=== PATIENT | female | born 1970 | race Caucasian/White ===

== ENCOUNTER → 2017-11-21 12:59 | Outpatient (CLI) | payer OTHER, MEDICAID, SELFPAY ==
--- NOTE | 2017-11-21 13:00 | DI.US.S_ITS ---
PROCEDURE: US PERIPH VENOUS UP EXTREM LT COMPARISON: None. INDICATIONS: ARM PAIN FINDINGS: No thrombus identified in the deep venous system of the left upper extremity. The veins of left upper extremity normally compressible. There is normal augmentation of flow within the deep veins of left upper extremity. IMPRESSION: No evidence of deep vein thrombosis involving the left upper extremity. Dictated by: Leatha Fonseca MD, PhD on 11/21/2017 at 12:43 Approved by: Leatha Fonseca MD, PhD on 11/21/2017 at 12:45
== END ==
PROVIDERS: Family Provider Family Medicine; PCP Family Medicine; Visit Provider Family Medicine
DX: M79.602 Pain in left arm (principal)
CPT/HCPCS: 93971

== ENCOUNTER → 2017-11-22 20:08 | Outpatient (CLI) | payer OTHER, MEDICAID, SELFPAY ==
--- NOTE | 2017-11-22 20:13 | DI.RAD.S_ITS ---
PROCEDURE: XR WRIST LT MIN 3V INDICATIONS: wrist pain, no known injury TECHNIQUE: 4 views of the wrist were acquired. COMPARISON: None. FINDINGS: Bones: No fractures or dislocations. There is ulnar negative variance. No suspicious bony lesions. Scaphoid view: The scaphoid appears intact. Soft tissues: No suspicious soft tissue calcifications. IMPRESSION: 1. No acute bony abnormality. Dictated by: Melvin Sanches M.D. on 11/22/2017 at 20:40 Approved by: Melvin Sanches M.D. on 11/22/2017 at 20:41
--- NOTE | 2017-11-22 20:13 | DI.RAD.S_ITS ---
PROCEDURE: XR FOREARM RT 2V INDICATIONS: arm pain, no known injury TECHNIQUE: 2 views of the forearm were acquired. COMPARISON: None. FINDINGS: Bones: No fractures or dislocations. No suspicious bony lesions. Soft tissues: No suspicious soft tissue calcifications or masses. IMPRESSION: 1. No acute bony abnormality. Dictated by: Melvin Sanches M.D. on 11/22/2017 at 20:40 Approved by: Melvin Snaches M.D. on 11/22/2017 at 20:40
== END ==
PROVIDERS: Family Provider Family Medicine; PCP Family Medicine; Visit Provider Family Medicine
DX: M79.601 Pain in right arm (principal); M25.532 Pain in left wrist
CPT/HCPCS: 73090; 73110

== ENCOUNTER → 2017-11-27 17:38 | Outpatient (CLI) | payer OTHER, MEDICAID, SELFPAY ==
--- NOTE | 2017-11-27 17:40 | DI.RAD.S_ITS ---
PROCEDURE: XR CERVICAL SPINE 2V OR 3V INDICATIONS: 46-year-old female with cervicalgia. TECHNIQUE: 3 view(s) of the cervical spine were acquired. COMPARISON: [facility], , MRI C-SPINE W/O CONTRAST, 10/02/2004, 16:12. FINDINGS: Bones: No fractures or dislocations to the T1 level. There is loss of normal cervical spine lordosis as before. The lateral masses of C1 appear intact on the odontoid view. There is mild C4-C5 and C5-C6 disc degeneration. No suspicious bony lesions. Soft tissues: No prevertebral soft tissue swelling. There is minimal right carotid bifurcation atherosclerosis. IMPRESSION: Mild mid cervical spine disc degeneration, with persistent loss of normal cervical spine lordosis. Dictated by: Alfred Ross M.D. on 11/28/2017 at 8:19 Approved by: Alfred Ross M.D. on 11/28/2017 at 8:21
== END ==
PROVIDERS: Family Provider Family Medicine; PCP Family Medicine; Visit Provider Nurse Practitioner Family
DX: M50.322 Other cervical disc degeneration at C5-C6 level (principal); M25.532 Pain in left wrist
CPT/HCPCS: 72040

== ENCOUNTER 2018-01-07 20:18 | Emergency (ER) | payer OTHER, MEDICAID, SELFPAY ==
[2018-01-07 20:32] VITALS: PULSE 75; RESP 18; TEMP 36.3; O2SAT 98; BMI 41.1
--- NOTE | 2018-01-07 20:49 | DI.RAD.S_ITS ---
PROCEDURE: XR ACUTE ABDOMEN SERIES INDICATIONS: Abdominal pain TECHNIQUE: One view chest and two views of the abdomen were acquired. COMPARISON: [facility], , ABDOMEN COMPLETE, 03/28/2014, 10:14. FINDINGS: Surgical changes and devices: None. Chest: Lungs are clear. Heart size is normal. No pleural effusions. No pneumoperitoneum. Abdomen: Bowel gas pattern is mildly abnormal with mild prominence of several small and large bowel loops and right colonic obstipation. No suspicious calcifications. Visualized solid organ contours appear normal. Bones: No suspicious bony lesions. IMPRESSION: No free air found, no definite intestinal obstruction or perforation, and there is only a mild degree of gas prominence of small and large bowel loops in addition to colonic obstipation on the right. Dictated by: Mike Atkinson M.D. on 01/07/2018 at 21:32 Approved by: Mike Atkinson M.D. on 01/07/2018 at 21:33
[2018-01-07 20:56] LABS: Add Manual Diff / Slide Review NO; Basophils Percent Auto 0.6 % (0-2); Eosinophils Percent Auto 1.4 % (2-4); Hematocrit 44.4 % (36-46); Hemoglobin 14.8 g/dL (12.0-16.0); Lymphocytes Percent Auto 17.6 % (25-40); Mean Corpuscular HGB Conc 33.4 % (30-36); Mean Corpuscular Hemoglobin 30.6 PG (26-34); Mean Corpuscular Volume 91.5 fL (80-100); Monocytes Percent Auto 2.8 % (3-14); Neutrophils Absolute Auto 10100 /uL (3000-5900); Neutrophils Percent Auto 77.6 % (50-75); Platelet Count 453 X10^3/uL (150-400); Red Blood Cell Count 4.85 X10^6/uL (4.0-5.2); Red Cell Distribution Width 14.4 % (11.6-14.8); White Blood Cell Count 13.1 X10^3/uL (4.5-11.0)
[2018-01-07 21:07] LABS: Alanine Aminotransferase 26 IU/L (9-52); Albumin 4.4 g/dL (3.5-5.0); Albumin Globulin Ratio 1.4 (1.0-2.8); Alkaline Phosphatase 82 U/L (38-126); Aspartate Aminotransferase 31 IU/L (14-36); BUN Creatinine Ratio 22.2 (6-22); Bilirubin Total 0.4 mg/dL (0.2-1.3); Blood Urea Nitrogen 20 mg/dL (7-17); Carbon Dioxide 25 mmol/L (22-32); Chloride 103 mmol/L (98-107); Creatine Kinase 37 U/L (30-135); Estimated Glomerular Filt Rate > 60.0 mL/min (>60); Globulin 3.2 g/dL (1.7-4.1); Glucose 143 mg/dL (70-100); Lipase 246 U/L (23-300); Potassium 4.4 mmol/L (3.4-5.1); Sodium 141 mmol/L (137-145); Total Protein 7.6 g/dL (6.3-8.2)
[2018-01-07] MEDS: SODIUM CHLORIDE 0.9% 1,000 ML 150 ML IV (21:18)
--- NOTE | 2018-01-07 21:18 | DI.CT.S_ITS ---
PROCEDURE: CT CHEST ABD PEL W CON INDICATIONS: severe abdominal pain w/radiation into chest and L shoulder. TE the emergency room physician reports several months prior gastroplasty. CHNIQUE: After the administration of oral and intravenous contrast, 5 mm thick sections acquired from the lung apices to the symphysis. 5 mm coronal and sagittal reformats were performed, with additional 7 mm coronal MIP reformats through the lungs. For radiation dose reduction, the following was used: automated exposure control, adjustment of mA and/or kV according to patient size. COMPARISON: None. FINDINGS: Image quality: Excellent. CHEST: Lungs and pleura: There is a minimal degree of alveolar infiltration located within the right upper lobe and the left lower lobe, this may represent alveolar scarring from prior inflammation rather than slight acute pneumonia. No pleural effusions or pneumothorax. Central and peripheral airways appear patent and normal in caliber. Mediastinum: Heart size is normal. No pericardial effusion. No mediastinal or hilar adenopathy by size criteria. Thoracic aorta and central pulmonary arteries are normal in size. Esophagus is normal in caliber. No hiatal hernia. Chest wall: No axillary or supraclavicular adenopathy by size criteria. Thyroid gland appears normal where well visualized. ABDOMEN: Solid organs: Liver is normal in size and enhancement. Gallbladder appears contracted. Biliary system is non dilated. Pancreas enhances normally. Spleen is normal in size and enhancement and contains a simple superior anterior splenic cyst. No adrenal nodules. Kidneys demonstrate normal size and enhancement, without hydronephrosis. Peritoneum and bowel: Large and small loops demonstrate normal wall thickness and caliber. There is, however, free fluid and small amounts of free air. This is localized to the left upper quadrant and a portion of the fluid and free air approaches to the posterolateral margin of the dominant staple line tracking towards the left upper quadrant. An abscess in this area is not seen. A small amount of perihepatic and pre-hepatic free air is present. More inferiorly through the abdomen and pelvis no abscess or bowel perforation is suspected. Nodes and vessels: No retroperitoneal or mesenteric adenopathy by size criteria. Aorta and inferior vena cava are normal in size. Miscellaneous: At the midline of the umbilicus there is a periumbilical ventral hernia containing fat, consistent with omental herniation.. PELVIS: Genitourinary: Bladder wall thickness is normal. Miscellaneous: No inguinal hernias or adenopathy. Mild free fluid within the pelvis without abscess formation. Bones: No suspicious bony lesions. No vertebral body compression fractures. IMPRESSION: There is left upper quadrant free fluid and also free air, immediately adjacent to a gastroplasty enteric staple line. Abscess is not found. A small amount of free fluid is seen deep within the central portion of the cul-de-sac of the pelvis without adjacent bowel inflammation, and presumably has transited from the abdomen into the pelvis. No abscess in this area seen. Incidental note made of fat-containing omental hernia through the periumbilical space of the ventral midline, with omental fat herniation measuring up to 3.5 cm. Minimal alveolar infiltration within the lung parenchyma at the left lower lobe and the right upper lobe but the appearance may simply reflect scarring from prior inflammatory process in those areas. A definite pattern of acute pneumonia is not present. Findings immediately called and discussed in detail with the emergency room physician caring for the patient. Surgical consultation is anticipated. Dictated by: Mike Atkinson M.D. on 01/07/2018 at 22:08 Approved by: Mike Atkinson M.D. on 01/07/2018 at 22:14
[2018-01-07] MEDS: HYDROMORPHONE 0.5 MG INJ IV (21:19)
[2018-01-07] MEDS: ONDANSETRON 4 MG/2 ML INJ IV (21:19)
[2018-01-07] MEDS: ASPIRIN 81 MG TAB 324 MG PO (21:19)
[2018-01-07 21:20] LABS: HEMOLYSIS 19 (0-50); Troponin I < 0.012 ng/mL (0.01-0.034)
--- NOTE | 2018-01-07 21:25 | ED.CHESTPAIN ---
HPI - Chest Pain <Matteo Donis, DO - Last Filed: 01/11/18 01:03> General Chief Complaint: Chest Pain Stated Complaint: CHEST PAIN Time Seen by Provider: 01/07/18 20:20 Source: patient and family Mode of arrival: ambulatory Limitations: no limitations History of Present Illness HPI narrative: 47-year-old female with history of NE times to and gastric bypass surgery presents with sudden-onset abdominal and chest pain 2 and 0.5 hr prior to her arrival while at rest. She states her pain is significantly worse when attempting to take a deep breath. She describes it as sharp and stabbing and admits radiation from her abdomen to her left shoulder. She denies nausea or vomiting. She has had no change in bowel habits. She states this feels much different than prior NE. Her gastric bypass was October [address] Charlene MANZANARES complaint: chest pain Duration: constant Onset: during rest Pain location: substernal, left chest and epigastric Severity: severe Quality: sharp Pain radiation: LUE Relieving factors: nothing Exacerbating factors: inspiration and movement Treatments prior to arrival chest pain: none Related Data Home Medications Medication Instructions Recorded Confirmed Bariatric Vitamin C Iron 1 cap PO DAILY 01/09/18 01/09/18 Calcium 500 1,000 mg PO DAILY 01/09/18 01/09/18 Previous Rx's Medication Instructions Recorded bdottjzsks-hxjuvcrnbjuyr-lirl 1 tab PO Q4HP PRN #20 tab 10/07/16 amlodipine 10 mg PO QDAY #30 tab 03/12/17 clobetasol [Clobex] 1 cindy TOPICAL QWEEK #118 ml 04/29/17 pravastatin 20 mg PO HS #30 tab 08/15/17 albuterol sulfate [Ventolin HFA] 2 puff INH Q4HP PRN #1 ea 10/01/17 carvedilol [Coreg] 25 mg PO BID #60 tab 10/15/17 diazepam 2 mg tablet See Label Instructions PO HSP PRN 11/25/17 #30 tab fluconazole [Diflucan] 100 mg PO BID #15 tab 01/10/18 levofloxacin 500 mg PO DAILY #7 tab 01/10/18 metronidazole [Flagyl] 500 mg PO TID #22 tab 01/10/18 omeprazole 20 mg PO DAILY #14 cap 01/10/18 Allergies Allergy/AdvReac Type Severity Reaction Status Date / Time Penicillins [PENICILLINS] Allergy Unknown rash Verified 01/07/18 20:42 Review of Systems <DO Orville Kyle Last Filed: 01/11/18 01:03> Review of Systems All systems reviewed & are unremarkable except as noted in HPI and below Constitutional Denies chills, Denies fever(s), Denies lethargy and Denies weakness Eyes Denies change in vision, Denies eye discharge, Denies irritation and Denies loss of vision ENT Ears, Nose, Mouth, and Throat: Denies change in voice, Denies neck pain and Denies sore throat Cardiovascular Reports chest pain, Denies irregular heart rhythm, Denies lightheadedness, Denies palpitations, Denies dyspnea, Denies dyspnea on exertion and Denies orthopnea Respiratory Denies cough, Reports pain on inspiration, Denies dyspnea, Denies dyspnea on exertion and Denies wheezing Gastrointestinal Gastrointestinal: Reports abdominal pain, Denies change in bowel habits, Denies diarrhea, Denies nausea and Denies vomiting Genitourinary Denies hematuria, Denies flank pain, Denies urinary incontinence and Denies urinary urgency Musculoskeletal Denies neck pain Integumentary/Breasts Denies pruritus, Denies erythema, Denies rash and Denies wounds Neurologic Denies confusion, Denies loss of vision and Denies weakness Psychiatric Denies anxiety, Denies confusion, Denies depression, Denies homicidal ideation and Denies suicidal ideation Endocrine Denies palpitations Hematologic/Lymphatic Denies easy bruising Allergic/Immunologic Denies wheezing Exam <DO Orville Kyle Last Filed: 01/11/18 01:03> Narrative Exam Narrative: Pleasant 47-year-old female, obese, anxious, in distress clutching her upper abdomen Initial Vital Signs Initial Vital Signs: Vital Signs Temperature 97.4 F L 01/07/18 20:32 Pulse Rate 75 01/07/18 20:32 Respiratory Rate 18 01/07/18 20:32 Pulse Oximetry 98 01/07/18 20:32 Const General: cooperative and well developed Nutritional Appearance: obese Orientation: alert, awake, oriented x3 and not confused HENVA Head: normocephalic and atraumatic Ears: external ears normal and TM's normal bilaterally Nose: external nose normal and No nasal discharge Face and sinus: face symmetric Mouth: oral mucosae normal and moist mucous membranes Teeth and gingiva: dentition normal Throat: tonsils normal and uvula midline Eyes General: appearance normal, both eyes and all related structures Eyelids: eyelids normal Pupils: PERRL EOM: EOM intact bilaterally Neck Neck: normal visual inspection, trachea midline, No lymphadenopathy, No midline deformity and No JVD Lymphatic: No lymphedema Chest Chest: localized rib tenderness with anteroposterior compression Resp Effort & Inspection: normal respiratory effort, able to speak in complete sentences, no respiratory distress and no use of accessory muscles Auscultation: clear to auscultation bilaterally, no rales, no rhonchi and no wheezes Cardio Rate: regular rate Rhythm: regular rhythm Heart Sounds: no click, no gallops, no murmurs and no rubs Pulses: normal peripheral pulses GI Inspection: non-distended Palpation: soft, no hepatosplenomegaly, No guarding, No pulsatile mass and tender (In epigastrium) Auscultation: normal bowel sounds Back/Spine/Pelvis Back: No CVA tenderness Cervical Spine: cervical ROM normal and No pain with cervical ROM Thoracic/Lumbar Spine: thoracic and lumbar spine normal to inspection Skin General: no rashes or lesions noted, No jaundice and No petechiae Neuro General: alert, oriented x3, gait normal and no focal motor deficits Speech: speech normal Extrem General: full ROM, no clubbing, cyanosis or edema, no pedal edema and no calf tenderness Psych Appearance: well kempt Mental Status: mental status grossly normal Attitude: cooperative Thought Content: normal and suicidality Judgment: judgment good <Colby Stevens DO - Last Filed: 01/10/18 18:47> Initial Vital Signs Initial Vital Signs: Vital Signs Temperature 97.4 F L 01/07/18 20:32 Pulse Rate 75 01/07/18 20:32 Respiratory Rate 18 01/07/18 20:32 Pulse Oximetry 98 01/07/18 20:32 Course <Matteo Donis DO - Last Filed: 01/11/18 01:03> Orders Ordered: Discontinued Medications Aspirin (Aspirin Chew) 324 mg PO NOW ONE Stop: 01/07/18 20:40 Last Admin: 01/07/18 21:19 Dose: 324 mg Hydromorphone HCl (Dilaudid) 0.5 mg IV NOW ONE Stop: 01/07/18 20:49 Last Admin: 01/07/18 21:19 Dose: 0.5 mg Hydromorphone HCl (Dilaudid) 0.5 mg IV NOW ONE Stop: 01/07/18 23:50 Last Admin: 01/07/18 23:51 Dose: 0.5 mg Hydromorphone HCl (Dilaudid) 0.5 mg IV NOW ONE Stop: 01/08/18 06:35 Last Admin: 01/08/18 06:37 Dose: 0.5 mg Hydromorphone HCl (Dilaudid) 0.5 mg IV NOW ONE Stop: 01/08/18 09:40 Last Admin: 01/08/18 09:53 Dose: 0.5 mg Hydromorphone HCl (Dilaudid) 0.5 mg IV Q4H PRN PRN Reason: Pain, Moderate (4-6) Last Admin: 01/10/18 06:55 Dose: 0.5 mg Admin: 01/09/18 21:04 Dose: 0.5 mg Admin: 01/09/18 04:15 Dose: 0.5 mg Admin: 01/09/18 00:57 Dose: 0.5 mg Admin: 01/08/18 20:40 Dose: 0.5 mg Admin: 01/08/18 17:23 Dose: 0.5 mg Admin: 01/08/18 13:45 Dose: 0.5 mg Sodium Chloride (Normal Saline 0.9%) 1,000 mls @ 150 mls/hr IV CONT [facility] Last Infusion: 01/08/18 04:02 Dose: 150 mls/hr Admin: 01/07/18 21:18 Dose: 150 mls/hr Levofloxacin (Levaquin) 500 mg in 100 mls @ 100 mls/hr IV Q24H [facility] Last Infusion: 01/09/18 02:40 Dose: 100 mls/hr Admin: 01/09/18 01:40 Dose: 100 mls/hr Infusion: 01/08/18 01:40 Dose: 100 mls/hr Admin: 01/08/18 00:21 Dose: 100 mls/hr Metronidazole (Flagyl) 500 mg in 100 mls @ 100 mls/hr IV Q8H [facility] Last Admin: 01/09/18 19:55 Dose: Infusion: 01/09/18 11:58 Dose: 0 mls/hr Admin: 01/09/18 10:53 Dose: 100 mls/hr Infusion: 01/09/18 04:00 Dose: 100 mls/hr Admin: 01/09/18 03:00 Dose: 100 mls/hr Infusion: 01/08/18 18:41 Dose: 0 mls/hr Admin: 01/08/18 17:11 Dose: 100 mls/hr Infusion: 01/08/18 10:49 Dose: 0 mls/hr Admin: 01/08/18 09:53 Dose: 100 mls/hr Infusion: 01/08/18 02:39 Dose: 100 mls/hr Admin: 01/08/18 01:39 Dose: 100 mls/hr Fluconazole (Diflucan) 100 mg in 50 mls @ 50 mls/hr IV NOW ONE Stop: 01/08/18 01:44 Last Infusion: 01/08/18 04:01 Dose: 50 mls/hr Admin: 01/08/18 02:40 Dose: 50 mls/hr Pantoprazole Sodium 80 mg/ (Sodium Chloride) 100 mls @ 10 mls/hr IV CONT [facility] Last Infusion: 01/08/18 11:51 Dose: 0 mg/hr, 0 mls/hr Infusion: 01/08/18 11:06 Dose: 0 mg/hr, 0 mls/hr Admin: 01/08/18 07:41 Dose: 8 mg/hr, 10 mls/hr Sodium Chloride (Normal Saline 0.9%) 1,000 mls @ 125 mls/hr IV CONT [facility] Last Infusion: 01/08/18 18:43 Dose: 0 mls/hr Admin: 01/08/18 10:45 Dose: 125 mls/hr HYDROMORPHONE [employer] (Dilaudid 6 Mg/30 Ml) 6 mg in 30 mls @ 0 mls/hr IV Q8HR [facility] Dextrose/Sodium Chloride (Dextrose 5%-0.45% Ns) 1,000 mls @ 125 mls/hr IV CONT [facility] Last Infusion: 01/09/18 18:58 Dose: 0 mls/hr Admin: 01/09/18 10:53 Dose: 125 mls/hr Infusion: 01/09/18 10:35 Dose: 0 mls/hr Admin: 01/08/18 21:48 Dose: 125 mls/hr Fluconazole (Diflucan) 100 mg in 50 mls @ 100 mls/hr IV Q24H [facility] Last Infusion: 01/10/18 09:09 Dose: 0 mls/hr Admin: 01/10/18 07:52 Dose: 100 mls/hr Infusion: 01/09/18 10:34 Dose: 0 mls/hr Admin: 01/09/18 08:59 Dose: 100 mls/hr Levofloxacin (Levaquin) 500 mg in 100 mls @ 100 mls/hr IV 0000 [facility] Last Infusion: 01/10/18 00:30 Dose: 0 mls/hr Admin: 01/09/18 23:19 Dose: 100 mls/hr Metronidazole (Flagyl) 500 mg in 100 mls @ 100 mls/hr IV 0400,1200,2000 [facility] Last Infusion: 01/10/18 14:27 Dose: 0 mls/hr Admin: 01/10/18 12:13 Dose: 100 mls/hr Infusion: 01/10/18 05:22 Dose: 0 mls/hr Admin: 01/10/18 04:19 Dose: 100 mls/hr Infusion: 01/09/18 20:40 Dose: 0 mls/hr Admin: 01/09/18 19:48 Dose: 100 mls/hr Dextrose/Sodium Chloride (Dextrose 5%-0.45% Ns) 1,000 mls @ 125 mls/hr IV CONT [facility] Last Infusion: 01/10/18 06:49 Dose: 0 mls/hr Admin: 01/09/18 19:56 Dose: 125 mls/hr Dextrose/Sodium Chloride (Dextrose 5%-0.9% Ns) 1,000 mls @ 125 mls/hr IV CONT [facility] Last Infusion: 01/10/18 17:40 Dose: 0 mls/hr Admin: 01/10/18 07:53 Dose: 125 mls/hr Naloxone HCl (Narcan) 0.2 mg IV Q2MIN PRN; Protocol PRN Reason: Opiate Reversal Ondansetron HCl (Zofran) 4 mg IV Q4HR PRN PRN Reason: Nausea And Vomiting Last Admin: 01/07/18 21:19 Dose: 4 mg Reevaluation(s) Reevaluation #1: Patient resting comfortably. Vitals remained stable. No change in pain profile Time: 03:13 Reevaluation #2: Patient resting comfortably. Continues to ambulate through department. No significant pain. no vomiting. No fever. Fluids continue. Waiting on possible bed tomorrow Time: 02:01 Consultations Consultation #1: call to [facility]. Images pushed. Face sheet faxed. Time: 22:13 Consultation #2: Lengthy discussion with Dr. Chang regarding the patient's presentation, exam, labs, imaging. She recommends patient transferred to the [facility] for further evaluation in the possibility of surgical intervention. She recommends broad-spectrum antibiotics including Levaquin, Flagyl and Diflucan as well as Protonix, IV fluids at 125 mL/hr and pain and nausea control as needed. Bed control from the [facility] unfortunately has no available beds this evening but will have a bed availability a meeting at 8:00 a.m.. We are high top their list given the patient's possible surgical intervention and history at the [facility]. They request immediate contact for any change in the patient's clinical status Vital Signs - 8 hr 01/10/18 18:29 Temperature 97.6 F Pulse Rate 55 L Respiratory Rate 18 Blood Pressure [Left Arm] 111/63 Pulse Oximetry 100 <Colby Stevens DO - Last Filed: 01/10/18 18:47> Orders Ordered: Discontinued Medications Aspirin (Aspirin Chew) 324 mg PO NOW ONE Stop: 01/07/18 20:40 Last Admin: 01/07/18 21:19 Dose: 324 mg Hydromorphone HCl (Dilaudid) 0.5 mg IV NOW ONE Stop: 01/07/18 20:49 Last Admin: 01/07/18 21:19 Dose: 0.5 mg Hydromorphone HCl (Dilaudid) 0.5 mg IV NOW ONE Stop: 01/07/18 23:50 Last Admin: 01/07/18 23:51 Dose: 0.5 mg Hydromorphone HCl (Dilaudid) 0.5 mg IV NOW ONE Stop: 01/08/18 06:35 Last Admin: 01/08/18 06:37 Dose: 0.5 mg Hydromorphone HCl (Dilaudid) 0.5 mg IV NOW ONE Stop: 01/08/18 09:40 Last Admin: 01/08/18 09:53 Dose: 0.5 mg Hydromorphone HCl (Dilaudid) 0.5 mg IV Q4H PRN PRN Reason: Pain, Moderate (4-6) Last Admin: 01/10/18 06:55 Dose: 0.5 mg Admin: 01/09/18 21:04 Dose: 0.5 mg Admin: 01/09/18 04:15 Dose: 0.5 mg Admin: 01/09/18 00:57 Dose: 0.5 mg Admin: 01/08/18 20:40 Dose: 0.5 mg Admin: 01/08/18 17:23 Dose: 0.5 mg Admin: 01/08/18 13:45 Dose: 0.5 mg Sodium Chloride (Normal Saline 0.9%) 1,000 mls @ 150 mls/hr IV CONT [facility] Last Infusion: 01/08/18 04:02 Dose: 150 mls/hr Admin: 01/07/18 21:18 Dose: 150 mls/hr Levofloxacin (Levaquin) 500 mg in 100 mls @ 100 mls/hr IV Q24H [facility] Last Infusion: 01/09/18 02:40 Dose: 100 mls/hr Admin: 01/09/18 01:40 Dose: 100 mls/hr Infusion: 01/08/18 01:40 Dose: 100 mls/hr Admin: 01/08/18 00:21 Dose: 100 mls/hr Metronidazole (Flagyl) 500 mg in 100 mls @ 100 mls/hr IV Q8H [facility] Last Admin: 01/09/18 19:55 Dose: Infusion: 01/09/18 11:58 Dose: 0 mls/hr Admin: 01/09/18 10:53 Dose: 100 mls/hr Infusion: 01/09/18 04:00 Dose: 100 mls/hr Admin: 01/09/18 03:00 Dose: 100 mls/hr Infusion: 01/08/18 18:41 Dose: 0 mls/hr Admin: 01/08/18 17:11 Dose: 100 mls/hr Infusion: 01/08/18 10:49 Dose: 0 mls/hr Admin: 01/08/18 09:53 Dose: 100 mls/hr Infusion: 01/08/18 02:39 Dose: 100 mls/hr Admin: 01/08/18 01:39 Dose: 100 mls/hr Fluconazole (Diflucan) 100 mg in 50 mls @ 50 mls/hr IV NOW ONE Stop: 01/08/18 01:44 Last Infusion: 01/08/18 04:01 Dose: 50 mls/hr Admin: 01/08/18 02:40 Dose: 50 mls/hr Pantoprazole Sodium 80 mg/ (Sodium Chloride) 100 mls @ 10 mls/hr IV CONT [facility] Last Infusion: 01/08/18 11:51 Dose: 0 mg/hr, 0 mls/hr Infusion: 01/08/18 11:06 Dose: 0 mg/hr, 0 mls/hr Admin: 01/08/18 07:41 Dose: 8 mg/hr, 10 mls/hr Sodium Chloride (Normal Saline 0.9%) 1,000 mls @ 125 mls/hr IV CONT [facility] Last Infusion: 01/08/18 18:43 Dose: 0 mls/hr Admin: 01/08/18 10:45 Dose: 125 mls/hr HYDROMORPHONE [employer] (Dilaudid 6 Mg/30 Ml) 6 mg in 30 mls @ 0 mls/hr IV Q8HR [facility] Dextrose/Sodium Chloride (Dextrose 5%-0.45% Ns) 1,000 mls @ 125 mls/hr IV CONT [facility] Last Infusion: 01/09/18 18:58 Dose: 0 mls/hr Admin: 01/09/18 10:53 Dose: 125 mls/hr Infusion: 01/09/18 10:35 Dose: 0 mls/hr Admin: 01/08/18 21:48 Dose: 125 mls/hr Fluconazole (Diflucan) 100 mg in 50 mls @ 100 mls/hr IV Q24H [facility] Last Infusion: 01/10/18 09:09 Dose: 0 mls/hr Admin: 01/10/18 07:52 Dose: 100 mls/hr Infusion: 01/09/18 10:34 Dose: 0 mls/hr Admin: 01/09/18 08:59 Dose: 100 mls/hr Levofloxacin (Levaquin) 500 mg in 100 mls @ 100 mls/hr IV 0000 [facility] Last Infusion: 01/10/18 00:30 Dose: 0 mls/hr Admin: 01/09/18 23:19 Dose: 100 mls/hr Metronidazole (Flagyl) 500 mg in 100 mls @ 100 mls/hr IV 0400,1200,2000 [facility] Last Infusion: 01/10/18 14:27 Dose: 0 mls/hr Admin: 01/10/18 12:13 Dose: 100 mls/hr Infusion: 01/10/18 05:22 Dose: 0 mls/hr Admin: 01/10/18 04:19 Dose: 100 mls/hr Infusion: 01/09/18 20:40 Dose: 0 mls/hr Admin: 01/09/18 19:48 Dose: 100 mls/hr Dextrose/Sodium Chloride (Dextrose 5%-0.45% Ns) 1,000 mls @ 125 mls/hr IV CONT [facility] Last Infusion: 01/10/18 06:49 Dose: 0 mls/hr Admin: 01/09/18 19:56 Dose: 125 mls/hr Dextrose/Sodium Chloride (Dextrose 5%-0.9% Ns) 1,000 mls @ 125 mls/hr IV CONT [facility] Last Infusion: 01/10/18 17:40 Dose: 0 mls/hr Admin: 01/10/18 07:53 Dose: 125 mls/hr Naloxone HCl (Narcan) 0.2 mg IV Q2MIN PRN; Protocol PRN Reason: Opiate Reversal Ondansetron HCl (Zofran) 4 mg IV Q4HR PRN PRN Reason: Nausea And Vomiting Last Admin: 01/07/18 21:19 Dose: 4 mg Vital Signs - 8 hr 01/10/18 18:29 Temperature 97.6 F Pulse Rate 55 L Respiratory Rate 18 Blood Pressure [Left Arm] 111/63 Pulse Oximetry 100 MDM - Chest Pain <Matteo Donis DO - Last Filed: 01/11/18 01:03> Medical Records Data Attestation: I reviewed the patient's medical records. Lab Data Attestation: I reviewed the patient's lab results. Result diagrams: 01/10/18 07:40 01/10/18 07:40 Lab Results 01/07/18 01/07/18 01/08/18 Range/Units 20:48 20:48 18:34 WBC 13.1 H 13.6 H (4.5-11.0) X10^3/uL RBC 4.85 4.21 (4.0-5.2) X10^6/uL Hgb 14.8 12.9 (12.0-16.0) g/dL Hct 44.4 38.6 (36-46) % MCV 91.5 91.6 (80-100) fL MCH 30.6 30.6 (26-34) PG MCHC 33.4 33.4 (30-36) % RDW 14.4 14.3 (11.6-14.8) % Plt Count 453 H 354 (150-400) X10^3/uL Neut % (Auto) 77.6 H 78.0 H (50-75) % Lymph % (Auto) 17.6 L 13.7 L (25-40) % Roosevelt % (Auto) 2.8 L 7.6 (3-14) % Eos % (Auto) 1.4 L 0.5 L (2-4) % Baso % (Auto) 0.6 0.2 (0-2) % Neut # (Auto) 37541 H 30696 H (8527-5143) /uL Sodium 141 (137-145) mmol/L Potassium 4.4 (3.4-5.1) mmol/L Chloride 103 (98-107) mmol/L Carbon Dioxide 25 (22-32) mmol/L BUN 20 H (7-17) mg/dL Creatinine 0.90 (0.52-1.04) mg/dL Estimated GFR > 60.0 (>60) mL/min BUN/Creatinine Ratio 22.2 H (6-22) Glucose 143 H (70-100) mg/dL Lactate (0.7-2.1) mmol/L Calcium 10.0 (8.4-10.2) mg/dL Total Bilirubin 0.4 (0.2-1.3) mg/dL AST 31 (14-36) IU/L ALT 26 (9-52) IU/L Alkaline Phosphatase 82 (38-126) U/L Total Creatine Kinase 37 (30-135) U/L Troponin I < 0.012 (0.01-0.034) ng/mL Total Protein 7.6 (6.3-8.2) g/dL Albumin 4.4 (3.5-5.0) g/dL Globulin 3.2 (1.7-4.1) g/dL Albumin/Globulin Ratio 1.4 (1.0-2.8) Lipase 246 (23-300) U/L 01/08/18 01/08/18 01/10/18 Range/Units 18:34 18:34 07:40 WBC 7.4 (4.5-11.0) X10^3/uL RBC 3.92 L (4.0-5.2) X10^6/uL Hgb 12.1 (12.0-16.0) g/dL Hct 35.9 L (36-46) % MCV 91.5 (80-100) fL MCH 30.9 (26-34) PG MCHC 33.8 (30-36) % RDW 14.6 (11.6-14.8) % Plt Count 340 (150-400) X10^3/uL Neut % (Auto) 58.4 (50-75) % Lymph % (Auto) 29.1 (25-40) % Roosevelt % (Auto) 7.8 (3-14) % Eos % (Auto) 4.4 H (2-4) % Baso % (Auto) 0.3 (0-2) % Neut # (Auto) 4300 (9192-9196) /uL Sodium 139 (137-145) mmol/L Potassium 3.9 (3.4-5.1) mmol/L Chloride 107 (98-107) mmol/L Carbon Dioxide 24 (22-32) mmol/L BUN 11 (7-17) mg/dL Creatinine 0.70 (0.52-1.04) mg/dL Estimated GFR > 60.0 (>60) mL/min BUN/Creatinine Ratio 15.7 (6-22) Glucose 123 H (70-100) mg/dL Lactate 0.6 L (0.7-2.1) mmol/L Calcium 8.7 (8.4-10.2) mg/dL Total Bilirubin (0.2-1.3) mg/dL AST (14-36) IU/L ALT (9-52) IU/L Alkaline Phosphatase (38-126) U/L Total Creatine Kinase (30-135) U/L Troponin I (0.01-0.034) ng/mL Total Protein (6.3-8.2) g/dL Albumin (3.5-5.0) g/dL Globulin (1.7-4.1) g/dL Albumin/Globulin Ratio (1.0-2.8) Lipase (23-300) U/L /14/18 Range/Units 07:40 WBC (4.5-11.0) X10^3/uL RBC (4.0-5.2) X10^6/uL Hgb (12.0-16.0) g/dL Hct (36-46) % MCV (80-100) fL MCH (26-34) PG MCHC (30-36) % RDW (11.6-14.8) % Plt Count (150-400) X10^3/uL Neut % (Auto) (50-75) % Lymph % (Auto) (25-40) % Roosevelt % (Auto) (3-14) % Eos % (Auto) (2-4) % Baso % (Auto) (0-2) % Neut # (Auto) (4530-5975) /uL Sodium 142 (137-145) mmol/L Potassium 3.6 (3.4-5.1) mmol/L Chloride 109 H (98-107) mmol/L Carbon Dioxide 25 (22-32) mmol/L BUN 7 (7-17) mg/dL Creatinine 0.70 (0.52-1.04) mg/dL Estimated GFR > 60.0 (>60) mL/min BUN/Creatinine Ratio 10.0 (6-22) Glucose 121 H (70-100) mg/dL Lactate (0.7-2.1) mmol/L Calcium 8.8 (8.4-10.2) mg/dL Total Bilirubin (0.2-1.3) mg/dL AST (14-36) IU/L ALT (9-52) IU/L Alkaline Phosphatase (38-126) U/L Total Creatine Kinase (30-135) U/L Troponin I (0.01-0.034) ng/mL Total Protein (6.3-8.2) g/dL Albumin (3.5-5.0) g/dL Globulin (1.7-4.1) g/dL Albumin/Globulin Ratio (1.0-2.8) Lipase (23-300) U/L Imaging Data CT scan - abdomen: Radiologist's impression: PROCEDURE: CT CHEST ABD PEL W CON INDICATIONS: severe abdominal pain w/radiation into chest and L shoulder. TE the emergency room physician reports several months prior gastroplasty. CHNIQUE: After the administration of oral and intravenous contrast, 5 mm thick sections acquired from the lung apices to the symphysis. 5 mm coronal and sagittal reformats were performed, with additional 7 mm coronal MIP reformats through the lungs. For radiation dose reduction, the following was used: automated exposure control, adjustment of mA and/or kV according to patient size. COMPARISON: None. FINDINGS: Image quality: Excellent. CHEST: Lungs and pleura: There is a minimal degree of alveolar infiltration located within the right upper lobe and the left lower lobe, this may represent alveolar scarring from prior inflammation rather than slight acute pneumonia. No pleural effusions or pneumothorax. Central and peripheral airways appear patent and normal in caliber. Mediastinum: Heart size is normal. No pericardial effusion. No mediastinal or hilar adenopathy by size criteria. Thoracic aorta and central pulmonary arteries are normal in size. Esophagus is normal in caliber. No hiatal hernia. Chest wall: No axillary or supraclavicular adenopathy by size criteria. Thyroid gland appears normal where well visualized. ABDOMEN: Solid organs: Liver is normal in size and enhancement. Gallbladder appears contracted. Biliary system is non dilated. Pancreas enhances normally. Spleen is normal in size and enhancement and contains a simple superior anterior splenic cyst. No adrenal nodules. Kidneys demonstrate normal size and enhancement, without hydronephrosis. Peritoneum and bowel: Large and small loops demonstrate normal wall thickness and caliber. There is, however, free fluid and small amounts of free air. This is localized to the left upper quadrant and a portion of the fluid and free air approaches to the posterolateral margin of the dominant staple line tracking towards the left upper quadrant. An abscess in this area is not seen. A small amount of perihepatic and pre-hepatic free air is present. More inferiorly through the abdomen and pelvis no abscess or bowel perforation is suspected. Nodes and vessels: No retroperitoneal or mesenteric adenopathy by size criteria. Aorta and inferior vena cava are normal in size. Miscellaneous: At the midline of the umbilicus there is a periumbilical ventral hernia containing fat, consistent with omental herniation.. PELVIS: Genitourinary: Bladder wall thickness is normal. Miscellaneous: No inguinal hernias or adenopathy. Mild free fluid within the pelvis without abscess formation. Bones: No suspicious bony lesions. No vertebral body compression fractures. IMPRESSION: There is left upper quadrant free fluid and also free air, immediately adjacent to a gastroplasty enteric staple line. Abscess is not found. A small amount of free fluid is seen deep within the central portion of the cul-de-sac of the pelvis without adjacent bowel inflammation, and presumably has transited from the abdomen into the pelvis. No abscess in this area seen. Incidental note made of fat-containing omental hernia through the periumbilical space of the ventral midline, with omental fat herniation measuring up to 3.5 cm. Minimal alveolar infiltration within the lung parenchyma at the left lower lobe and the right upper lobe but the appearance may simply reflect scarring from prior inflammatory process in those areas. A definite pattern of acute pneumonia is not present. Findings immediately called and discussed in detail with the emergency room physician caring for the patient. Surgical consultation is anticipated. Dictated by: Mike Atkinson M.D. on 01/07/2018 at 22:08 Approved by: Mike Atkinson M.D. on 01/07/2018 at 22:14 <Colby Stevens DO - Last Filed: 01/10/18 18:47> Lab Data Lab Results 01/07/18 01/07/18 01/08/18 Range/Units 20:48 20:48 18:34 WBC 13.1 H 13.6 H (4.5-11.0) X10^3/uL RBC 4.85 4.21 (4.0-5.2) X10^6/uL Hgb 14.8 12.9 (12.0-16.0) g/dL Hct 44.4 38.6 (36-46) % MCV 91.5 91.6 (80-100) fL MCH 30.6 30.6 (26-34) PG MCHC 33.4 33.4 (30-36) % RDW 14.4 14.3 (11.6-14.8) % Plt Count 453 H 354 (150-400) X10^3/uL Neut % (Auto) 77.6 H 78.0 H (50-75) % Lymph % (Auto) 17.6 L 13.7 L (25-40) % [place] % (Auto) 2.8 L 7.6 (3-14) % Eos % (Auto) 1.4 L 0.5 L (2-4) % Baso % (Auto) 0.6 0.2 (0-2) % Neut # (Auto) 04430 H 80048 H (3247-5013) /uL Sodium 141 (137-145) mmol/L Potassium 4.4 (3.4-5.1) mmol/L Chloride 103 (98-107) mmol/L Carbon Dioxide 25 (22-32) mmol/L BUN 20 H (7-17) mg/dL Creatinine 0.90 (0.52-1.04) mg/dL Estimated GFR > 60.0 (>60) mL/min BUN/Creatinine Ratio 22.2 H (6-22) Glucose 143 H (70-100) mg/dL Lactate (0.7-2.1) mmol/L Calcium 10.0 (8.4-10.2) mg/dL Total Bilirubin 0.4 (0.2-1.3) mg/dL AST 31 (14-36) IU/L ALT 26 (9-52) IU/L Alkaline Phosphatase 82 (38-126) U/L Total Creatine Kinase 37 (30-135) U/L Troponin I < 0.012 (0.01-0.034) ng/mL Total Protein 7.6 (6.3-8.2) g/dL Albumin 4.4 (3.5-5.0) g/dL Globulin 3.2 (1.7-4.1) g/dL Albumin/Globulin Ratio 1.4 (1.0-2.8) Lipase 246 (23-300) U/L 01/08/18 01/08/18 01/10/18 Range/Units 18:34 18:34 07:40 WBC 7.4 (4.5-11.0) X10^3/uL RBC 3.92 L (4.0-5.2) X10^6/uL Hgb 12.1 (12.0-16.0) g/dL Hct 35.9 L (36-46) % MCV 91.5 (80-100) fL MCH 30.9 (26-34) PG MCHC 33.8 (30-36) % RDW 14.6 (11.6-14.8) % Plt Count 340 (150-400) X10^3/uL Neut % (Auto) 58.4 (50-75) % Lymph % (Auto) 29.1 (25-40) % Roosevelt % (Auto) 7.8 (3-14) % Eos % (Auto) 4.4 H (2-4) % Baso % (Auto) 0.3 (0-2) % Neut # (Auto) 4300 (0749-8882) /uL Sodium 139 (137-145) mmol/L Potassium 3.9 (3.4-5.1) mmol/L Chloride 107 (98-107) mmol/L Carbon Dioxide 24 (22-32) mmol/L BUN 11 (7-17) mg/dL Creatinine 0.70 (0.52-1.04) mg/dL Estimated GFR > 60.0 (>60) mL/min BUN/Creatinine Ratio 15.7 (6-22) Glucose 123 H (70-100) mg/dL Lactate 0.6 L (0.7-2.1) mmol/L Calcium 8.7 (8.4-10.2) mg/dL Total Bilirubin (0.2-1.3) mg/dL AST (14-36) IU/L ALT (9-52) IU/L Alkaline Phosphatase (38-126) U/L Total Creatine Kinase (30-135) U/L Troponin I (0.01-0.034) ng/mL Total Protein (6.3-8.2) g/dL Albumin (3.5-5.0) g/dL Globulin (1.7-4.1) g/dL Albumin/Globulin Ratio (1.0-2.8) Lipase (23-300) U/L 01/10/18 Range/Units 07:40 WBC (4.5-11.0) X10^3/uL RBC (4.0-5.2) X10^6/uL Hgb (12.0-16.0) g/dL Hct (36-46) % MCV (80-100) fL MCH (26-34) PG MCHC (30-36) % RDW (11.6-14.8) % Plt Count (150-400) X10^3/uL Neut % (Auto) (50-75) % Lymph % (Auto) (25-40) % Roosevelt % (Auto) (3-14) % Eos % (Auto) (2-4) % Baso % (Auto) (0-2) % Neut # (Auto) (3885-3851) /uL Sodium 142 (137-145) mmol/L Potassium 3.6 (3.4-5.1) mmol/L Chloride 109 H (98-107) mmol/L Carbon Dioxide 25 (22-32) mmol/L BUN 7 (7-17) mg/dL Creatinine 0.70 (0.52-1.04) mg/dL Estimated GFR > 60.0 (>60) mL/min BUN/Creatinine Ratio 10.0 (6-22) Glucose 121 H (70-100) mg/dL Lactate (0.7-2.1) mmol/L Calcium 8.8 (8.4-10.2) mg/dL Total Bilirubin (0.2-1.3) mg/dL AST (14-36) IU/L ALT (9-52) IU/L Alkaline Phosphatase (38-126) U/L Total Creatine Kinase (30-135) U/L Troponin I (0.01-0.034) ng/mL Total Protein (6.3-8.2) g/dL Albumin (3.5-5.0) g/dL Globulin (1.7-4.1) g/dL Albumin/Globulin Ratio (1.0-2.8) Lipase (23-300) U/L MDM Narrative Medical decision making narrative: Dr stevens: 1100 Received turned over from night provider. Reviewed patient's history and physical exam upon my arrival here at 0700 hr this morning. we were waiting a staffing meeting at the [facility] that was scheduled to happen between 8-9 this morning. They did call us back after 10 o'clock this morning and stated that they did not currently have any beds and had to wait for discharges. I again talked to Dr. Chang who Dr. Shah spoke with last evening in who is the patient's operative surgeon asking if in her opinion given the information that we have provided her and her review of the CT scan if I should be looking for another location to send this patient secondary to the potential perforation. Dr. Chang seem to think based on the information that she was provided an her review of the CT and the current vital signs that the patient would be best off down at the [facility] and not at another facility. She states that given our description of the patient and her review of the CT that she would not take the patient emergently to the operating room. She did state that if the patient's condition continued to worsen then we would potentially have to make different arrangements. She also stated that the patient did not need to be on a Protonix drip. She recommended continuing the antibiotics on a daily basis. I did update the patient and family who was at bedside regarding the situation and the benefit that she would receive by staying here in the emergency department awaiting for [facility]. She did expressed understanding and agreement with this. Will continue to monitor. 01/09/18 Dr Stevens: Attempts yesterday to admit the patient to the hospital under Medicine and surgery services were unsuccessful. [facility] continued to have no beds overnight. Patient has remained stable overnight. Received Levaquin and Flagyl overnight. Diflucan reordered for today. Patient has been ambulatory. Patient states that her upper abdominal pain is not much better than what it was yesterday. Labs ordered last evening were unchanged from her presentation to the emergency department. Blood pressure unremarkable. Patient has been NPO. Has been receiving IV fluids. Accu-Chek this morning unremarkable. Talk with Dr. Chang again this morning from [facility]. There is another bed meeting today between 8 and 9 they will contact us if a bed remains available. Will continue to watch the patient here in the emergency department. I feel that transferring her to another facility would not be the best thing for her seeing as how her surgeon is at [facility]. The patient's condition deteriorates will re-evaluate this decision. RED stockings ordered for the patient for DVT prophylaxis. Again the patient has also been ambulatory. I discussed the patient's case with her this morning. Informed her of the plans. She expressed understanding. Her continues to be at bedside. Will continue to monitor. 01/10/18 @ [address] had [address] discussion with Dr[address] Chang this morning. Patient has been stable overnight. Has remained afebrile. Has not been hypotensive. Repeat blood draws today show an improvement of her white blood cell count. Patient does report a significant improvement in her pain. Patient has been NPO since arrival. Has been receiving her antibiotics. After discussion with the transfer center [facility] it again appears that there is a low probability of bed availability today. Had a lengthy discussion with Dr. Chang regarding options that we had here in the emergency department. Item is understanding with Dr. Chang yesterday. It is my impression that Dr. Chang wanted to do an endoscopy however she clarified today stating that she would not do an endoscopy just a barium swallow to look for leakage. After this discussion I had a discussion with our radiologist here regarding our options. Given the day of the week the decision was made to give the patient oral and IV contrast and repeat the CT scan of the abdomen. Plan will be that if there is no leakage of the contrast into the abdominal cavity we will advance the patient's diet to clear liquids. She is able to tolerate this that we could potentially send her home with oral antibiotics the follow-up the beginning of next week. I did discuss this with the patient and her was at bedside who expressed understanding and agreement. Will consult Dr. Chang prior to any discharge. 01/10/18 1830: After discussions with Dr. Chang this morning the patient's diet was advanced throughout the day. She continued to have no abdominal pain. The CT scan that was done this morning with oral contrast does not show any intra-abdominal contrast material. The patient was able to tolerate a small amount of a protein drink. Had a discussion with Dr. Chang this afternoon who states that if she could tolerate a protein drink without worsening of her pain that she could be discharged with a total of 10 days of antibiotics. Patient has been on 3 days of antibiotics so far. The plan was for Dr. Chang is a office to contact the patient on Friday morning for a follow-up. Patient was given return precautions. She expressed understanding and agreement with plan Discharge Plan Departure Patient Disposition: Home, Self-Care Clinical Impression: Perforated bowel, Abdominal pain Discharge Date/Time: 01/10/18 18:58 Interventions: ED Discharge Assessment Last Done: 01/10/18 18:56 Instructions: DI for Abdominal Pain-Adult Activity Restrictions/Additional Instructions: You are to remain on a clear liquid diet and to your advanced by your surgeon. With regard to the antibiotics you can take the 1st dose of Levaquin/levofloxacin on Friday01/11/2018. Please take the 1st dose of the metronidazole/Flagyl this evening. Also take the 1st dose of the fluconazole/Diflucan this evening. Return to the emergency department for any new symptoms, worsening symptoms, fevers, worsening abdominal pain, or any other new or concerning symptoms. Thank you for your understanding in being here in the emergency department for so long. Dr. Chang also recommended that you take the antibiotics at different times and not all 3 pills at the same time. You can continue to take her other medications as directed but also do those at different times as well. Prescriptions: New fluconazole [Diflucan] 100 mg tablet 100 mg PO BID Qty: 15 RF: 0 metronidazole [Flagyl] 500 mg tablet 500 mg PO TID Qty: 22 RF: 0 omeprazole 20 mg capsule,delayed release(DR/EC) 20 mg PO DAILY Qty: 14 RF: 0 levofloxacin 500 mg tablet 500 mg PO DAILY Qty: 7 RF: 0 No Action [id number] 1 EACH tablet 1 tab PO Q4HP PRNQty: 20 RF: 0 amlodipine 10 MG tablet 10 mg PO QDAY Qty: 30 RF: 11 clobetasol [Clobex] 0.05 % shampoo 1 cindy Topical QWEEK Qty: 118 RF: 3 pravastatin 20 MG tablet 20 mg PO HS Qty: 30 RF: 11 albuterol sulfate [Ventolin HFA] 90 MCG/PUFF HFA aerosol inhaler 2 puff INH Q4HP PRNQty: 1 RF: 0 carvedilol [Coreg] 25 MG tablet 25 mg PO BID Qty: 60 RF: 5 diazepam 2 mg tablet See Label Instructions PO HSP PRN (Reason: muscle spasm) Qty: 30 RF: 0 Bariatric Vitamin C Iron 1 cap PO DAILY RF: 0 Calcium 500 1,000 mg PO DAILY RF: 0
--- NOTE | 2018-01-07 21:45 | ED_ITS ---
HPI - Chest Pain <Matteo Donis, DO - Last Filed: 01/11/18 01:03> General Chief Complaint: Chest Pain Stated Complaint: CHEST PAIN Time Seen by Provider: 01/07/18 20:20 Source: patient and family Mode of arrival: ambulatory Limitations: no limitations History of Present Illness HPI narrative: 47-year-old female with history of AL times to and gastric bypass surgery presents with sudden-onset abdominal and chest pain 2 and 0.5 hr prior to her arrival while at rest. She states her pain is significantly worse when attempting to take a deep breath. She describes it as sharp and stabbing and admits radiation from her abdomen to her left shoulder. She denies nausea or vomiting. She has had no change in bowel habits. She states this feels much different than prior AL. Her gastric bypass was October [address] Charlene MANZANARES complaint: chest pain Duration: constant Onset: during rest Pain location: substernal, left chest and epigastric Severity: severe Quality: sharp Pain radiation: LUE Relieving factors: nothing Exacerbating factors: inspiration and movement Treatments prior to arrival chest pain: none Related Data Home Medications Medication Instructions Recorded Confirmed Bariatric Vitamin C Iron 1 cap PO DAILY 01/09/18 01/09/18 Calcium 500 1,000 mg PO DAILY 01/09/18 01/09/18 Previous Rx's Medication Instructions Recorded [id number] 1 tab PO Q4HP PRN #20 tab 10/07/16 amlodipine 10 mg PO QDAY #30 tab 03/12/17 clobetasol [Clobex] 1 cindy TOPICAL QWEEK #118 ml 04/29/17 pravastatin 20 mg PO HS #30 tab 08/15/17 albuterol sulfate [Ventolin HFA] 2 puff INH Q4HP PRN #1 ea 10/01/17 carvedilol [Coreg] 25 mg PO BID #60 tab 10/15/17 diazepam 2 mg tablet See Label Instructions PO HSP PRN 11/25/17 #30 tab fluconazole [Diflucan] 100 mg PO BID #15 tab 01/10/18 levofloxacin 500 mg PO DAILY #7 tab 01/10/18 metronidazole [Flagyl] 500 mg PO TID #22 tab 01/10/18 omeprazole 20 mg PO DAILY #14 cap 01/10/18 Allergies Allergy/AdvReac Type Severity Reaction Status Date / Time Penicillins [PENICILLINS] Allergy Unknown rash Verified 01/07/18 20:42 Review of Systems <DO Orville Kyle Last Filed: 01/11/18 01:03> Review of Systems All systems reviewed & are unremarkable except as noted in HPI and below Constitutional Denies chills, Denies fever(s), Denies lethargy and Denies weakness Eyes Denies change in vision, Denies eye discharge, Denies irritation and Denies loss of vision ENT Ears, Nose, Mouth, and Throat: Denies change in voice, Denies neck pain and Denies sore throat Cardiovascular Reports chest pain, Denies irregular heart rhythm, Denies lightheadedness, Denies palpitations, Denies dyspnea, Denies dyspnea on exertion and Denies orthopnea Respiratory Denies cough, Reports pain on inspiration, Denies dyspnea, Denies dyspnea on exertion and Denies wheezing Gastrointestinal Gastrointestinal: Reports abdominal pain, Denies change in bowel habits, Denies diarrhea, Denies nausea and Denies vomiting Genitourinary Denies hematuria, Denies flank pain, Denies urinary incontinence and Denies urinary urgency Musculoskeletal Denies neck pain Integumentary/Breasts Denies pruritus, Denies erythema, Denies rash and Denies wounds Neurologic Denies confusion, Denies loss of vision and Denies weakness Psychiatric Denies anxiety, Denies confusion, Denies depression, Denies homicidal ideation and Denies suicidal ideation Endocrine Denies palpitations Hematologic/Lymphatic Denies easy bruising Allergic/Immunologic Denies wheezing Exam <DO Orville Kyle Last Filed: 01/11/18 01:03> Narrative Exam Narrative: Pleasant 47-year-old female, obese, anxious, in distress clutching her upper abdomen Initial Vital Signs Initial Vital Signs: Vital Signs Temperature 97.4 F L 01/07/18 20:32 Pulse Rate 75 01/07/18 20:32 Respiratory Rate 18 01/07/18 20:32 Pulse Oximetry 98 01/07/18 20:32 Const General: cooperative and well developed Nutritional Appearance: obese Orientation: alert, awake, oriented x3 and not confused HENAK Head: normocephalic and atraumatic Ears: external ears normal and TM's normal bilaterally Nose: external nose normal and No nasal discharge Face and sinus: face symmetric Mouth: oral mucosae normal and moist mucous membranes Teeth and gingiva: dentition normal Throat: tonsils normal and uvula midline Eyes General: appearance normal, both eyes and all related structures Eyelids: eyelids normal Pupils: PERRL EOM: EOM intact bilaterally Neck Neck: normal visual inspection, trachea midline, No lymphadenopathy, No midline deformity and No JVD Lymphatic: No lymphedema Chest Chest: localized rib tenderness with anteroposterior compression Resp Effort & Inspection: normal respiratory effort, able to speak in complete sentences, no respiratory distress and no use of accessory muscles Auscultation: clear to auscultation bilaterally, no rales, no rhonchi and no wheezes Cardio Rate: regular rate Rhythm: regular rhythm Heart Sounds: no click, no gallops, no murmurs and no rubs Pulses: normal peripheral pulses GI Inspection: non-distended Palpation: soft, no hepatosplenomegaly, No guarding, No pulsatile mass and tender (In epigastrium) Auscultation: normal bowel sounds Back/Spine/Pelvis Back: No CVA tenderness Cervical Spine: cervical ROM normal and No pain with cervical ROM Thoracic/Lumbar Spine: thoracic and lumbar spine normal to inspection Skin General: no rashes or lesions noted, No jaundice and No petechiae Neuro General: alert, oriented x3, gait normal and no focal motor deficits Speech: speech normal Extrem General: full ROM, no clubbing, cyanosis or edema, no pedal edema and no calf tenderness Psych Appearance: well kempt Mental Status: mental status grossly normal Attitude: cooperative Thought Content: normal and suicidality Judgment: judgment good <Colby Stevens DO - Last Filed: 01/10/18 18:47> Initial Vital Signs Initial Vital Signs: Vital Signs Temperature 97.4 F L 01/07/18 20:32 Pulse Rate 75 01/07/18 20:32 Respiratory Rate 18 01/07/18 20:32 Pulse Oximetry 98 01/07/18 20:32 Course <Matteo Donis DO - Last Filed: 01/11/18 01:03> Orders Ordered: Discontinued Medications Aspirin (Aspirin Chew) 324 mg PO NOW ONE Stop: 01/07/18 20:40 Last Admin: 01/07/18 21:19 Dose: 324 mg Hydromorphone HCl (Dilaudid) 0.5 mg IV NOW ONE Stop: 01/07/18 20:49 Last Admin: 01/07/18 21:19 Dose: 0.5 mg Hydromorphone HCl (Dilaudid) 0.5 mg IV NOW ONE Stop: 01/07/18 23:50 Last Admin: 01/07/18 23:51 Dose: 0.5 mg Hydromorphone HCl (Dilaudid) 0.5 mg IV NOW ONE Stop: 01/08/18 06:35 Last Admin: 01/08/18 06:37 Dose: 0.5 mg Hydromorphone HCl (Dilaudid) 0.5 mg IV NOW ONE Stop: 01/08/18 09:40 Last Admin: 01/08/18 09:53 Dose: 0.5 mg Hydromorphone HCl (Dilaudid) 0.5 mg IV Q4H PRN PRN Reason: Pain, Moderate (4-6) Last Admin: 01/10/18 06:55 Dose: 0.5 mg Admin: 01/09/18 21:04 Dose: 0.5 mg Admin: 01/09/18 04:15 Dose: 0.5 mg Admin: 01/09/18 00:57 Dose: 0.5 mg Admin: 01/08/18 20:40 Dose: 0.5 mg Admin: 01/08/18 17:23 Dose: 0.5 mg Admin: 01/08/18 13:45 Dose: 0.5 mg Sodium Chloride (Normal Saline 0.9%) 1,000 mls @ 150 mls/hr IV CONT [facility] Last Infusion: 01/08/18 04:02 Dose: 150 mls/hr Admin: 01/07/18 21:18 Dose: 150 mls/hr Levofloxacin (Levaquin) 500 mg in 100 mls @ 100 mls/hr IV Q24H [facility] Last Infusion: 01/09/18 02:40 Dose: 100 mls/hr Admin: 01/09/18 01:40 Dose: 100 mls/hr Infusion: 01/08/18 01:40 Dose: 100 mls/hr Admin: 01/08/18 00:21 Dose: 100 mls/hr Metronidazole (Flagyl) 500 mg in 100 mls @ 100 mls/hr IV Q8H [facility] Last Admin: 01/09/18 19:55 Dose: Infusion: 01/09/18 11:58 Dose: 0 mls/hr Admin: 01/09/18 10:53 Dose: 100 mls/hr Infusion: 01/09/18 04:00 Dose: 100 mls/hr Admin: 01/09/18 03:00 Dose: 100 mls/hr Infusion: 01/08/18 18:41 Dose: 0 mls/hr Admin: 01/08/18 17:11 Dose: 100 mls/hr Infusion: 01/08/18 10:49 Dose: 0 mls/hr Admin: 01/08/18 09:53 Dose: 100 mls/hr Infusion: 01/08/18 02:39 Dose: 100 mls/hr Admin: 01/08/18 01:39 Dose: 100 mls/hr Fluconazole (Diflucan) 100 mg in 50 mls @ 50 mls/hr IV NOW ONE Stop: 01/08/18 01:44 Last Infusion: 01/08/18 04:01 Dose: 50 mls/hr Admin: 01/08/18 02:40 Dose: 50 mls/hr Pantoprazole Sodium 80 mg/ (Sodium Chloride) 100 mls @ 10 mls/hr IV CONT [facility] Last Infusion: 01/08/18 11:51 Dose: 0 mg/hr, 0 mls/hr Infusion: 01/08/18 11:06 Dose: 0 mg/hr, 0 mls/hr Admin: 01/08/18 07:41 Dose: 8 mg/hr, 10 mls/hr Sodium Chloride (Normal Saline 0.9%) 1,000 mls @ 125 mls/hr IV CONT [facility] Last Infusion: 01/08/18 18:43 Dose: 0 mls/hr Admin: 01/08/18 10:45 Dose: 125 mls/hr HYDROMORPHONE [employer]OR (Dilaudid 6 Mg/30 Ml) 6 mg in 30 mls @ 0 mls/hr IV Q8HR [facility] Dextrose/Sodium Chloride (Dextrose 5%-0.45% Ns) 1,000 mls @ 125 mls/hr IV CONT [facility] Last Infusion: 01/09/18 18:58 Dose: 0 mls/hr Admin: 01/09/18 10:53 Dose: 125 mls/hr Infusion: 01/09/18 10:35 Dose: 0 mls/hr Admin: 01/08/18 21:48 Dose: 125 mls/hr Fluconazole (Diflucan) 100 mg in 50 mls @ 100 mls/hr IV Q24H [facility] Last Infusion: 01/10/18 09:09 Dose: 0 mls/hr Admin: 01/10/18 07:52 Dose: 100 mls/hr Infusion: 01/09/18 10:34 Dose: 0 mls/hr Admin: 01/09/18 08:59 Dose: 100 mls/hr Levofloxacin (Levaquin) 500 mg in 100 mls @ 100 mls/hr IV 0000 [facility] Last Infusion: 01/10/18 00:30 Dose: 0 mls/hr Admin: 01/09/18 23:19 Dose: 100 mls/hr Metronidazole (Flagyl) 500 mg in 100 mls @ 100 mls/hr IV 0400,1200,2000 [facility] Last Infusion: 01/10/18 14:27 Dose: 0 mls/hr Admin: 01/10/18 12:13 Dose: 100 mls/hr Infusion: 01/10/18 05:22 Dose: 0 mls/hr Admin: 01/10/18 04:19 Dose: 100 mls/hr Infusion: 01/09/18 20:40 Dose: 0 mls/hr Admin: 01/09/18 19:48 Dose: 100 mls/hr Dextrose/Sodium Chloride (Dextrose 5%-0.45% Ns) 1,000 mls @ 125 mls/hr IV CONT [facility] Last Infusion: 01/10/18 06:49 Dose: 0 mls/hr Admin: 01/09/18 19:56 Dose: 125 mls/hr Dextrose/Sodium Chloride (Dextrose 5%-0.9% Ns) 1,000 mls @ 125 mls/hr IV CONT [facility] Last Infusion: 01/10/18 17:40 Dose: 0 mls/hr Admin: 01/10/18 07:53 Dose: 125 mls/hr Naloxone HCl (Narcan) 0.2 mg IV Q2MIN PRN; Protocol PRN Reason: Opiate Reversal Ondansetron HCl (Zofran) 4 mg IV Q4HR PRN PRN Reason: Nausea And Vomiting Last Admin: 01/07/18 21:19 Dose: 4 mg Reevaluation(s) Reevaluation #1: Patient resting comfortably. Vitals remained stable. No change in pain profile Time: 03:13 Reevaluation #2: Patient resting comfortably. Continues to ambulate through department. No significant pain. no vomiting. No fever. Fluids continue. Waiting on possible bed tomorrow Time: 02:01 Consultations Consultation #1: call to [facility]. Images pushed. Face sheet faxed. Time: 22:13 Consultation #2: Lengthy discussion with Dr. Chang regarding the patient's presentation, exam, labs, imaging. She recommends patient transferred to the [facility] for further evaluation in the possibility of surgical intervention. She recommends broad-spectrum antibiotics including Levaquin, Flagyl and Diflucan as well as Protonix, IV fluids at 125 mL/hr and pain and nausea control as needed. Bed control from the [facility] unfortunately has no available beds this evening but will have a bed availability a meeting at 8:00 a.m.. We are high top their list given the patient's possible surgical intervention and history at the [facility]. They request immediate contact for any change in the patient's clinical status Vital Signs - 8 hr 01/10/18 18:29 Temperature 97.6 F Pulse Rate 55 L Respiratory Rate 18 Blood Pressure [Left Arm] 111/63 Pulse Oximetry 100 <Colby Stevens DO - Last Filed: 01/10/18 18:47> Orders Ordered: Discontinued Medications Aspirin (Aspirin Chew) 324 mg PO NOW ONE Stop: 01/07/18 20:40 Last Admin: 01/07/18 21:19 Dose: 324 mg Hydromorphone HCl (Dilaudid) 0.5 mg IV NOW ONE Stop: 01/07/18 20:49 Last Admin: 01/07/18 21:19 Dose: 0.5 mg Hydromorphone HCl (Dilaudid) 0.5 mg IV NOW ONE Stop: 01/07/18 23:50 Last Admin: 01/07/18 23:51 Dose: 0.5 mg Hydromorphone HCl (Dilaudid) 0.5 mg IV NOW ONE Stop: 01/08/18 06:35 Last Admin: 01/08/18 06:37 Dose: 0.5 mg Hydromorphone HCl (Dilaudid) 0.5 mg IV NOW ONE Stop: 01/08/18 09:40 Last Admin: 01/08/18 09:53 Dose: 0.5 mg Hydromorphone HCl (Dilaudid) 0.5 mg IV Q4H PRN PRN Reason: Pain, Moderate (4-6) Last Admin: 01/10/18 06:55 Dose: 0.5 mg Admin: 01/09/18 21:04 Dose: 0.5 mg Admin: 01/09/18 04:15 Dose: 0.5 mg Admin: 01/09/18 00:57 Dose: 0.5 mg Admin: 01/08/18 20:40 Dose: 0.5 mg Admin: 01/08/18 17:23 Dose: 0.5 mg Admin: 01/08/18 13:45 Dose: 0.5 mg Sodium Chloride (Normal Saline 0.9%) 1,000 mls @ 150 mls/hr IV CONT [facility] Last Infusion: 01/08/18 04:02 Dose: 150 mls/hr Admin: 01/07/18 21:18 Dose: 150 mls/hr Levofloxacin (Levaquin) 500 mg in 100 mls @ 100 mls/hr IV Q24H [facility] Last Infusion: 01/09/18 02:40 Dose: 100 mls/hr Admin: 01/09/18 01:40 Dose: 100 mls/hr Infusion: 01/08/18 01:40 Dose: 100 mls/hr Admin: 01/08/18 00:21 Dose: 100 mls/hr Metronidazole (Flagyl) 500 mg in 100 mls @ 100 mls/hr IV Q8H [facility] Last Admin: 01/09/18 19:55 Dose: Infusion: 01/09/18 11:58 Dose: 0 mls/hr Admin: 01/09/18 10:53 Dose: 100 mls/hr Infusion: 01/09/18 04:00 Dose: 100 mls/hr Admin: 01/09/18 03:00 Dose: 100 mls/hr Infusion: 01/08/18 18:41 Dose: 0 mls/hr Admin: 01/08/18 17:11 Dose: 100 mls/hr Infusion: 01/08/18 10:49 Dose: 0 mls/hr Admin: 01/08/18 09:53 Dose: 100 mls/hr Infusion: 01/08/18 02:39 Dose: 100 mls/hr Admin: 01/08/18 01:39 Dose: 100 mls/hr Fluconazole (Diflucan) 100 mg in 50 mls @ 50 mls/hr IV NOW ONE Stop: 01/08/18 01:44 Last Infusion: 01/08/18 04:01 Dose: 50 mls/hr Admin: 01/08/18 02:40 Dose: 50 mls/hr Pantoprazole Sodium 80 mg/ (Sodium Chloride) 100 mls @ 10 mls/hr IV CONT [facility] Last Infusion: 01/08/18 11:51 Dose: 0 mg/hr, 0 mls/hr Infusion: 01/08/18 11:06 Dose: 0 mg/hr, 0 mls/hr Admin: 01/08/18 07:41 Dose: 8 mg/hr, 10 mls/hr Sodium Chloride (Normal Saline 0.9%) 1,000 mls @ 125 mls/hr IV CONT [facility] Last Infusion: 01/08/18 18:43 Dose: 0 mls/hr Admin: 01/08/18 10:45 Dose: 125 mls/hr HYDROMORPHONE [employer] (Dilaudid 6 Mg/30 Ml) 6 mg in 30 mls @ 0 mls/hr IV Q8HR [facility] Dextrose/Sodium Chloride (Dextrose 5%-0.45% Ns) 1,000 mls @ 125 mls/hr IV CONT [facility] Last Infusion: 01/09/18 18:58 Dose: 0 mls/hr Admin: 01/09/18 10:53 Dose: 125 mls/hr Infusion: 01/09/18 10:35 Dose: 0 mls/hr Admin: 01/08/18 21:48 Dose: 125 mls/hr Fluconazole (Diflucan) 100 mg in 50 mls @ 100 mls/hr IV Q24H [facility] Last Infusion: 01/10/18 09:09 Dose: 0 mls/hr Admin: 01/10/18 07:52 Dose: 100 mls/hr Infusion: 01/09/18 10:34 Dose: 0 mls/hr Admin: 01/09/18 08:59 Dose: 100 mls/hr Levofloxacin (Levaquin) 500 mg in 100 mls @ 100 mls/hr IV 0000 [facility] Last Infusion: 01/10/18 00:30 Dose: 0 mls/hr Admin: 01/09/18 23:19 Dose: 100 mls/hr Metronidazole (Flagyl) 500 mg in 100 mls @ 100 mls/hr IV 0400,1200,2000 [facility] Last Infusion: 01/10/18 14:27 Dose: 0 mls/hr Admin: 01/10/18 12:13 Dose: 100 mls/hr Infusion: 01/10/18 05:22 Dose: 0 mls/hr Admin: 01/10/18 04:19 Dose: 100 mls/hr Infusion: 01/09/18 20:40 Dose: 0 mls/hr Admin: 01/09/18 19:48 Dose: 100 mls/hr Dextrose/Sodium Chloride (Dextrose 5%-0.45% Ns) 1,000 mls @ 125 mls/hr IV CONT [facility] Last Infusion: 01/10/18 06:49 Dose: 0 mls/hr Admin: 01/09/18 19:56 Dose: 125 mls/hr Dextrose/Sodium Chloride (Dextrose 5%-0.9% Ns) 1,000 mls @ 125 mls/hr IV CONT [facility] Last Infusion: 01/10/18 17:40 Dose: 0 mls/hr Admin: 01/10/18 07:53 Dose: 125 mls/hr Naloxone HCl (Narcan) 0.2 mg IV Q2MIN PRN; Protocol PRN Reason: Opiate Reversal Ondansetron HCl (Zofran) 4 mg IV Q4HR PRN PRN Reason: Nausea And Vomiting Last Admin: 01/07/18 21:19 Dose: 4 mg Vital Signs - 8 hr 01/10/18 18:29 Temperature 97.6 F Pulse Rate 55 L Respiratory Rate 18 Blood Pressure [Left Arm] 111/63 Pulse Oximetry 100 MDM - Chest Pain <Matteo Donis DO - Last Filed: 01/11/18 01:03> Medical Records Data Attestation: I reviewed the patient's medical records. Lab Data Attestation: I reviewed the patient's lab results. Result diagrams: 01/10/18 07:40 01/10/18 07:40 Lab Results 01/07/18 01/07/18 01/08/18 Range/Units 20:48 20:48 18:34 WBC 13.1 H 13.6 H (4.5-11.0) X10^3/uL RBC 4.85 4.21 (4.0-5.2) X10^6/uL Hgb 14.8 12.9 (12.0-16.0) g/dL Hct 44.4 38.6 (36-46) % MCV 91.5 91.6 (80-100) fL MCH 30.6 30.6 (26-34) PG MCHC 33.4 33.4 (30-36) % RDW 14.4 14.3 (11.6-14.8) % Plt Count 453 H 354 (150-400) X10^3/uL Neut % (Auto) 77.6 H 78.0 H (50-75) % Lymph % (Auto) 17.6 L 13.7 L (25-40) % Gentry % (Auto) 2.8 L 7.6 (3-14) % Eos % (Auto) 1.4 L 0.5 L (2-4) % Baso % (Auto) 0.6 0.2 (0-2) % Neut # (Auto) 80876 H 03374 H (3371-3111) /uL Sodium 141 (137-145) mmol/L Potassium 4.4 (3.4-5.1) mmol/L Chloride 103 (98-107) mmol/L Carbon Dioxide 25 (22-32) mmol/L BUN 20 H (7-17) mg/dL Creatinine 0.90 (0.52-1.04) mg/dL Estimated GFR > 60.0 (>60) mL/min BUN/Creatinine Ratio 22.2 H (6-22) Glucose 143 H (70-100) mg/dL Lactate (0.7-2.1) mmol/L Calcium 10.0 (8.4-10.2) mg/dL Total Bilirubin 0.4 (0.2-1.3) mg/dL AST 31 (14-36) IU/L ALT 26 (9-52) IU/L Alkaline Phosphatase 82 (38-126) U/L Total Creatine Kinase 37 (30-135) U/L Troponin I < 0.012 (0.01-0.034) ng/mL Total Protein 7.6 (6.3-8.2) g/dL Albumin 4.4 (3.5-5.0) g/dL Globulin 3.2 (1.7-4.1) g/dL Albumin/Globulin Ratio 1.4 (1.0-2.8) Lipase 246 (23-300) U/L 01/08/18 01/08/18 01/10/18 Range/Units 18:34 18:34 07:40 WBC 7.4 (4.5-11.0) X10^3/uL RBC 3.92 L (4.0-5.2) X10^6/uL Hgb 12.1 (12.0-16.0) g/dL Hct 35.9 L (36-46) % MCV 91.5 (80-100) fL MCH 30.9 (26-34) PG MCHC 33.8 (30-36) % RDW 14.6 (11.6-14.8) % Plt Count 340 (150-400) X10^3/uL Neut % (Auto) 58.4 (50-75) % Lymph % (Auto) 29.1 (25-40) % Gentry % (Auto) 7.8 (3-14) % Eos % (Auto) 4.4 H (2-4) % Baso % (Auto) 0.3 (0-2) % Neut # (Auto) 4300 (1088-6142) /uL Sodium 139 (137-145) mmol/L Potassium 3.9 (3.4-5.1) mmol/L Chloride 107 (98-107) mmol/L Carbon Dioxide 24 (22-32) mmol/L BUN 11 (7-17) mg/dL Creatinine 0.70 (0.52-1.04) mg/dL Estimated GFR > 60.0 (>60) mL/min BUN/Creatinine Ratio 15.7 (6-22) Glucose 123 H (70-100) mg/dL Lactate 0.6 L (0.7-2.1) mmol/L Calcium 8.7 (8.4-10.2) mg/dL Total Bilirubin (0.2-1.3) mg/dL AST (14-36) IU/L ALT (9-52) IU/L Alkaline Phosphatase (38-126) U/L Total Creatine Kinase (30-135) U/L Troponin I (0.01-0.034) ng/mL Total Protein (6.3-8.2) g/dL Albumin (3.5-5.0) g/dL Globulin (1.7-4.1) g/dL Albumin/Globulin Ratio (1.0-2.8) Lipase (23-300) U/L /14/18 Range/Units 07:40 WBC (4.5-11.0) X10^3/uL RBC (4.0-5.2) X10^6/uL Hgb (12.0-16.0) g/dL Hct (36-46) % MCV (80-100) fL MCH (26-34) PG MCHC (30-36) % RDW (11.6-14.8) % Plt Count (150-400) X10^3/uL Neut % (Auto) (50-75) % Lymph % (Auto) (25-40) % Gentry % (Auto) (3-14) % Eos % (Auto) (2-4) % Baso % (Auto) (0-2) % Neut # (Auto) (7255-8171) /uL Sodium 142 (137-145) mmol/L Potassium 3.6 (3.4-5.1) mmol/L Chloride 109 H (98-107) mmol/L Carbon Dioxide 25 (22-32) mmol/L BUN 7 (7-17) mg/dL Creatinine 0.70 (0.52-1.04) mg/dL Estimated GFR > 60.0 (>60) mL/min BUN/Creatinine Ratio 10.0 (6-22) Glucose 121 H (70-100) mg/dL Lactate (0.7-2.1) mmol/L Calcium 8.8 (8.4-10.2) mg/dL Total Bilirubin (0.2-1.3) mg/dL AST (14-36) IU/L ALT (9-52) IU/L Alkaline Phosphatase (38-126) U/L Total Creatine Kinase (30-135) U/L Troponin I (0.01-0.034) ng/mL Total Protein (6.3-8.2) g/dL Albumin (3.5-5.0) g/dL Globulin (1.7-4.1) g/dL Albumin/Globulin Ratio (1.0-2.8) Lipase (23-300) U/L Imaging Data CT scan - abdomen: Radiologist's impression: PROCEDURE: CT CHEST ABD PEL W CON INDICATIONS: severe abdominal pain w/radiation into chest and L shoulder. TE the emergency room physician reports several months prior gastroplasty. CHNIQUE: After the administration of oral and intravenous contrast, 5 mm thick sections acquired from the lung apices to the symphysis. 5 mm coronal and sagittal reformats were performed, with additional 7 mm coronal MIP reformats through the lungs. For radiation dose reduction, the following was used: automated exposure control, adjustment of mA and/or kV according to patient size. COMPARISON: None. FINDINGS: Image quality: Excellent. CHEST: Lungs and pleura: There is a minimal degree of alveolar infiltration located within the right upper lobe and the left lower lobe, this may represent alveolar scarring from prior inflammation rather than slight acute pneumonia. No pleural effusions or pneumothorax. Central and peripheral airways appear patent and normal in caliber. Mediastinum: Heart size is normal. No pericardial effusion. No mediastinal or hilar adenopathy by size criteria. Thoracic aorta and central pulmonary arteries are normal in size. Esophagus is normal in caliber. No hiatal hernia. Chest wall: No axillary or supraclavicular adenopathy by size criteria. Thyroid gland appears normal where well visualized. ABDOMEN: Solid organs: Liver is normal in size and enhancement. Gallbladder appears contracted. Biliary system is non dilated. Pancreas enhances normally. Spleen is normal in size and enhancement and contains a simple superior anterior splenic cyst. No adrenal nodules. Kidneys demonstrate normal size and enhancement, without hydronephrosis. Peritoneum and bowel: Large and small loops demonstrate normal wall thickness and caliber. There is, however, free fluid and small amounts of free air. This is localized to the left upper quadrant and a portion of the fluid and free air approaches to the posterolateral margin of the dominant staple line tracking towards the left upper quadrant. An abscess in this area is not seen. A small amount of perihepatic and pre-hepatic free air is present. More inferiorly through the abdomen and pelvis no abscess or bowel perforation is suspected. Nodes and vessels: No retroperitoneal or mesenteric adenopathy by size criteria. Aorta and inferior vena cava are normal in size. Miscellaneous: At the midline of the umbilicus there is a periumbilical ventral hernia containing fat, consistent with omental herniation.. PELVIS: Genitourinary: Bladder wall thickness is normal. Miscellaneous: No inguinal hernias or adenopathy. Mild free fluid within the pelvis without abscess formation. Bones: No suspicious bony lesions. No vertebral body compression fractures. IMPRESSION: There is left upper quadrant free fluid and also free air, immediately adjacent to a gastroplasty enteric staple line. Abscess is not found. A small amount of free fluid is seen deep within the central portion of the cul-de-sac of the pelvis without adjacent bowel inflammation, and presumably has transited from the abdomen into the pelvis. No abscess in this area seen. Incidental note made of fat-containing omental hernia through the periumbilical space of the ventral midline, with omental fat herniation measuring up to 3.5 cm. Minimal alveolar infiltration within the lung parenchyma at the left lower lobe and the right upper lobe but the appearance may simply reflect scarring from prior inflammatory process in those areas. A definite pattern of acute pneumonia is not present. Findings immediately called and discussed in detail with the emergency room physician caring for the patient. Surgical consultation is anticipated. Dictated by: Mike Atkinson M.D. on 01/07/2018 at 22:08 Approved by: Mike Atkinson M.D. on 01/07/2018 at 22:14 <Colby Stevens DO - Last Filed: 01/10/18 18:47> Lab Data Lab Results 01/07/18 01/07/18 01/08/18 Range/Units 20:48 20:48 18:34 WBC 13.1 H 13.6 H (4.5-11.0) X10^3/uL RBC 4.85 4.21 (4.0-5.2) X10^6/uL Hgb 14.8 12.9 (12.0-16.0) g/dL Hct 44.4 38.6 (36-46) % MCV 91.5 91.6 (80-100) fL MCH 30.6 30.6 (26-34) PG MCHC 33.4 33.4 (30-36) % RDW 14.4 14.3 (11.6-14.8) % Plt Count 453 H 354 (150-400) X10^3/uL Neut % (Auto) 77.6 H 78.0 H (50-75) % Lymph % (Auto) 17.6 L 13.7 L (25-40) % [place] % (Auto) 2.8 L 7.6 (3-14) % Eos % (Auto) 1.4 L 0.5 L (2-4) % Baso % (Auto) 0.6 0.2 (0-2) % Neut # (Auto) 06590 H 74018 H (3880-4569) /uL Sodium 141 (137-145) mmol/L Potassium 4.4 (3.4-5.1) mmol/L Chloride 103 (98-107) mmol/L Carbon Dioxide 25 (22-32) mmol/L BUN 20 H (7-17) mg/dL Creatinine 0.90 (0.52-1.04) mg/dL Estimated GFR > 60.0 (>60) mL/min BUN/Creatinine Ratio 22.2 H (6-22) Glucose 143 H (70-100) mg/dL Lactate (0.7-2.1) mmol/L Calcium 10.0 (8.4-10.2) mg/dL Total Bilirubin 0.4 (0.2-1.3) mg/dL AST 31 (14-36) IU/L ALT 26 (9-52) IU/L Alkaline Phosphatase 82 (38-126) U/L Total Creatine Kinase 37 (30-135) U/L Troponin I < 0.012 (0.01-0.034) ng/mL Total Protein 7.6 (6.3-8.2) g/dL Albumin 4.4 (3.5-5.0) g/dL Globulin 3.2 (1.7-4.1) g/dL Albumin/Globulin Ratio 1.4 (1.0-2.8) Lipase 246 (23-300) U/L 01/08/18 01/08/18 01/10/18 Range/Units 18:34 18:34 07:40 WBC 7.4 (4.5-11.0) X10^3/uL RBC 3.92 L (4.0-5.2) X10^6/uL Hgb 12.1 (12.0-16.0) g/dL Hct 35.9 L (36-46) % MCV 91.5 (80-100) fL MCH 30.9 (26-34) PG MCHC 33.8 (30-36) % RDW 14.6 (11.6-14.8) % Plt Count 340 (150-400) X10^3/uL Neut % (Auto) 58.4 (50-75) % Lymph % (Auto) 29.1 (25-40) % [place] % (Auto) 7.8 (3-14) % Eos % (Auto) 4.4 H (2-4) % Baso % (Auto) 0.3 (0-2) % Neut # (Auto) 4300 (3705-4380) /uL Sodium 139 (137-145) mmol/L Potassium 3.9 (3.4-5.1) mmol/L Chloride 107 (98-107) mmol/L Carbon Dioxide 24 (22-32) mmol/L BUN 11 (7-17) mg/dL Creatinine 0.70 (0.52-1.04) mg/dL Estimated GFR > 60.0 (>60) mL/min BUN/Creatinine Ratio 15.7 (6-22) Glucose 123 H (70-100) mg/dL Lactate 0.6 L (0.7-2.1) mmol/L Calcium 8.7 (8.4-10.2) mg/dL Total Bilirubin (0.2-1.3) mg/dL AST (14-36) IU/L ALT (9-52) IU/L Alkaline Phosphatase (38-126) U/L Total Creatine Kinase (30-135) U/L Troponin I (0.01-0.034) ng/mL Total Protein (6.3-8.2) g/dL Albumin (3.5-5.0) g/dL Globulin (1.7-4.1) g/dL Albumin/Globulin Ratio (1.0-2.8) Lipase (23-300) U/L 01/10/18 Range/Units 07:40 WBC (4.5-11.0) X10^3/uL RBC (4.0-5.2) X10^6/uL Hgb (12.0-16.0) g/dL Hct (36-46) % MCV (80-100) fL MCH (26-34) PG MCHC (30-36) % RDW (11.6-14.8) % Plt Count (150-400) X10^3/uL Neut % (Auto) (50-75) % Lymph % (Auto) (25-40) % [place] % (Auto) (3-14) % Eos % (Auto) (2-4) % Baso % (Auto) (0-2) % Neut # (Auto) (6973-5629) /uL Sodium 142 (137-145) mmol/L Potassium 3.6 (3.4-5.1) mmol/L Chloride 109 H (98-107) mmol/L Carbon Dioxide 25 (22-32) mmol/L BUN 7 (7-17) mg/dL Creatinine 0.70 (0.52-1.04) mg/dL Estimated GFR > 60.0 (>60) mL/min BUN/Creatinine Ratio 10.0 (6-22) Glucose 121 H (70-100) mg/dL Lactate (0.7-2.1) mmol/L Calcium 8.8 (8.4-10.2) mg/dL Total Bilirubin (0.2-1.3) mg/dL AST (14-36) IU/L ALT (9-52) IU/L Alkaline Phosphatase (38-126) U/L Total Creatine Kinase (30-135) U/L Troponin I (0.01-0.034) ng/mL Total Protein (6.3-8.2) g/dL Albumin (3.5-5.0) g/dL Globulin (1.7-4.1) g/dL Albumin/Globulin Ratio (1.0-2.8) Lipase (23-300) U/L MDM Narrative Medical decision making narrative: Dr stevens: 1100 Received turned over from night provider. Reviewed patient's history and physical exam upon my arrival here at 0700 hr this morning. we were waiting a staffing meeting at the [facility] that was scheduled to happen between 8-9 this morning. They did call us back after 10 o'clock this morning and stated that they did not currently have any beds and had to wait for discharges. I again talked to Dr. Chang who Dr. Shah spoke with last evening in who is the patient 's operative surgeon asking if in her opinion given the information that we have provided her and her review of the CT scan if I should be looking for another location to send this patient secondary to the potential perforation. Dr. Chang seem to think based on the information that she was provided an her review of the CT and the current vital signs that the patient would be best off down at the [facility] and not at another facility. She states that given our description of the patient and her review of the CT that she would not take the patient emergently to the operating room. She did state that if the patient's condition continued to worsen then we would potentially have to make different arrangements. She also stated that the patient did not need to be on a Protonix drip. She recommended continuing the antibiotics on a daily basis. I did update the patient and family who was at bedside regarding the situation and the benefit that she would receive by staying here in the emergency department awaiting for [facility]. She did expressed understanding and agreement with this. Will continue to monitor. 01/09/18 Dr Stevens: Attempts yesterday to admit the patient to the hospital under Medicine and surgery services were unsuccessful. [facility] continued to have no beds overnight. Patient has remained stable overnight. Received Levaquin and Flagyl overnight. Diflucan reordered for today. Patient has been ambulatory. Patient states that her upper abdominal pain is not much better than what it was yesterday. Labs ordered last evening were unchanged from her presentation to the emergency department. Blood pressure unremarkable. Patient has been NPO. Has been receiving IV fluids. Accu-Chek this morning unremarkable. Talk with Dr. Chang again this morning from [facility]. There is another bed meeting today between 8 and 9 they will contact us if a bed remains available. Will continue to watch the patient here in the emergency department. I feel that transferring her to another facility would not be the best thing for her seeing as how her surgeon is at [facility]. The patient's condition deteriorates will re-evaluate this decision. RED stockings ordered for the patient for DVT prophylaxis. Again the patient has also been ambulatory. I discussed the patient's case with her this morning. Informed her of the plans. She expressed understanding. Her continues to be at bedside. Will continue to monitor. 01/10/18 @ [address] had [address] discussion [address] Dr[address] Chang this morning. Patient has been stable overnight. Has remained afebrile. Has not been hypotensive. Repeat blood draws today show an improvement of her white blood cell count. Patient does report a significant improvement in her pain. Patient has been NPO since arrival. Has been receiving her antibiotics. After discussion with the transfer center [facility] it again appears that there is a low probability of bed availability today. Had a lengthy discussion with Dr. Chang regarding options that we had here in the emergency department. Item is understanding with Dr. Chang yesterday. It is my impression that Dr. Chang wanted to do an endoscopy however she clarified today stating that she would not do an endoscopy just a barium swallow to look for leakage. After this discussion I had a discussion with our radiologist here regarding our options. Given the day of the week the decision was made to give the patient oral and IV contrast and repeat the CT scan of the abdomen. Plan will be that if there is no leakage of the contrast into the abdominal cavity we will advance the patient's diet to clear liquids. She is able to tolerate this that we could potentially send her home with oral antibiotics the follow-up the beginning of next week. I did discuss this with the patient and her was at bedside who expressed understanding and agreement. Will consult Dr. Chang prior to any discharge. 01/10/18 1830: After discussions with Dr. Chang this morning the patient's diet was advanced throughout the day. She continued to have no abdominal pain. The CT scan that was done this morning with oral contrast does not show any intra- abdominal contrast material. The patient was able to tolerate a small amount of a protein drink. Had a discussion with Dr. hCang this afternoon who states that if she could tolerate a protein drink without worsening of her pain that she could be discharged with a total of 10 days of antibiotics. Patient has been on 3 days of antibiotics so far. The plan was for Dr. Chang is a office to contact the patient on Friday morning for a follow-up. Patient was given return precautions. She expressed understanding and agreement with plan Discharge Plan Departure Patient Disposition: Home, Self-Care Clinical Impression: Perforated bowel, Abdominal pain Discharge Date/Time: 01/10/18 18:58 Interventions: ED Discharge Assessment Last Done: 01/10/18 18:56 Instructions: DI for Abdominal Pain-Adult Activity Restrictions/Additional Instructions: You are to remain on a clear liquid diet and to your advanced by your surgeon. With regard to the antibiotics you can take the 1st dose of Levaquin/ levofloxacin on Friday01/11/2018. Please take the 1st dose of the metronidazole/Flagyl this evening. Also take the 1st dose of the fluconazole/ Diflucan this evening. Return to the emergency department for any new symptoms , worsening symptoms, fevers, worsening abdominal pain, or any other new or concerning symptoms. Thank you for your understanding in being here in the emergency department for so long. Dr. Chang also recommended that you take the antibiotics at different times and not all 3 pills at the same time. You can continue to take her other medications as directed but also do those at different times as well. Prescriptions: New fluconazole [Diflucan] 100 mg tablet 100 mg PO BID Qty: 15 RF: 0 metronidazole [Flagyl] 500 mg tablet 500 mg PO TID Qty: 22 RF: 0 omeprazole 20 mg capsule,delayed release(DR/EC) 20 mg PO DAILY Qty: 14 RF: 0 levofloxacin 500 mg tablet 500 mg PO DAILY Qty: 7 RF: 0 No Action [id number] 1 EACH tablet 1 tab PO Q4HP PRNQty: 20 RF: 0 amlodipine 10 MG tablet 10 mg PO QDAY Qty: 30 RF: 11 clobetasol [Clobex] 0.05 % shampoo 1 cindy Topical QWEEK Qty: 118 RF: 3 pravastatin 20 MG tablet 20 mg PO HS Qty: 30 RF: 11 albuterol sulfate [Ventolin HFA] 90 MCG/PUFF HFA aerosol inhaler 2 puff INH Q4HP PRNQty: 1 RF: 0 carvedilol [Coreg] 25 MG tablet 25 mg PO BID Qty: 60 RF: 5 diazepam 2 mg tablet See Label Instructions PO HSP PRN (Reason: muscle spasm) Qty: 30 RF: 0 Bariatric Vitamin C Iron 1 cap PO DAILY RF: 0 Calcium 500 1,000 mg PO DAILY RF: 0
[2018-01-07 22:06] VITALS: BP 113/63; PULSE 64; RESP 16; O2SAT 99
--- NOTE | 2018-01-07 22:11 | PC.NURSE ---
Pt reports feeling much better s/p dilaudid and zofran. fluids running at 150ml/hr. at side. VSS. sitting up in bed. NAD
[2018-01-07 23:22] VITALS: BP 145/69; PULSE 73; RESP 20; TEMP 37.2; O2SAT 99
[2018-01-07] MEDS: HYDROMORPHONE 1 MG INJ 0.5 MG IV (23:51)
[2018-01-08] VITALS (23 sets, daily range): BP systolic 99–135; BP diastolic 37–93; PULSE 62–84; RESP 13–29; TEMP 36.9–37.7; O2SAT 92–100
[2018-01-08] MEDS: levoFLOXacin 500 MG/100 ML PIGGYBACK 100 MG IV (00:21)
[2018-01-08] MEDS: metroNIDAZOLE 500 MG/100 ML PIGGYBACK 100 MG IV ×3 (01:39→17:11)
[2018-01-08] MEDS: FLUCONAZOLE 100 MG/50 ML PIGGYBACK 50 MG IV (02:40)
[2018-01-08] MEDS: HYDROMORPHONE 1 MG INJ 0.5 MG IV ×4 (06:37→20:40)
[2018-01-08] MEDS: PANTOPRAZOLE 80 MG in SODIUM CHLORIDE 0.9% 100 ML 10 ML IV (07:41)
[2018-01-08] MEDS: HYDROMORPHONE 0.5 MG INJ IV (09:53)
[2018-01-08] MEDS: SODIUM CHLORIDE 0.9% 1,000 ML 125 ML IV (10:45)
[2018-01-08 18:41] LABS: Add Manual Diff / Slide Review NO; Basophils Percent Auto 0.2 % (0-2); Eosinophils Percent Auto 0.5 % (2-4); Hematocrit 38.6 % (36-46); Hemoglobin 12.9 g/dL (12.0-16.0); Lymphocytes Percent Auto 13.7 % (25-40); Mean Corpuscular HGB Conc 33.4 % (30-36); Mean Corpuscular Hemoglobin 30.6 PG (26-34); Mean Corpuscular Volume 91.6 fL (80-100); Monocytes Percent Auto 7.6 % (3-14); Neutrophils Absolute Auto 10600 /uL (3000-5900); Platelet Count 354 X10^3/uL (150-400); Red Blood Cell Count 4.21 X10^6/uL (4.0-5.2); Red Cell Distribution Width 14.3 % (11.6-14.8); White Blood Cell Count 13.6 X10^3/uL (4.5-11.0)
[2018-01-08 18:49] LABS: Lactate (Lactic Acid) 0.6 mmol/L (0.7-2.1)
[2018-01-08 18:50] LABS: BUN Creatinine Ratio 15.7 (6-22); Blood Urea Nitrogen 11 mg/dL (7-17); Calcium 8.7 mg/dL (8.4-10.2); Carbon Dioxide 24 mmol/L (22-32); Chloride 107 mmol/L (98-107); Estimated Glomerular Filt Rate > 60.0 mL/min (>60); Glucose 123 mg/dL (70-100); HEMOLYSIS < 15 (0-50); Potassium 3.9 mmol/L (3.4-5.1); Sodium 139 mmol/L (137-145)
[2018-01-08] MEDS: DEXTROSE 5%-0.45% NS 1,000 ML 125 ML IV (21:48)
[2018-01-09] VITALS (12 sets, daily range): BP systolic 104–159; BP diastolic 47–102; PULSE 63–88; RESP 14–22; TEMP 36.2–37; O2SAT 93–100
[2018-01-09] MEDS: HYDROMORPHONE 1 MG INJ 0.5 MG IV ×3 (00:57→21:04)
[2018-01-09] MEDS: levoFLOXacin 500 MG/100 ML PIGGYBACK 100 MG IV ×2 (01:40→23:19)
[2018-01-09] MEDS: metroNIDAZOLE 500 MG/100 ML PIGGYBACK 100 MG IV ×3 (03:00→19:48)
--- NOTE | 2018-01-09 05:28 | PC.NURSE ---
Pt IV in RFA patent yet causing pt discomfort dc'd and new IV placed in Right upper arm for patent comfort.
[2018-01-09] MEDS: FLUCONAZOLE 100 MG/50 ML PIGGYBACK IV (08:59)
[2018-01-09] MEDS: DEXTROSE 5%-0.45% NS 1,000 ML 125 ML IV ×2 (10:53→19:56)
[2018-01-10] MEDS: metroNIDAZOLE 500 MG/100 ML PIGGYBACK 100 MG IV ×2 (04:19→12:13)
[2018-01-10 06:06] VITALS: BP 122/70; PULSE 79; RESP 16; O2SAT 97
[2018-01-10] MEDS: HYDROMORPHONE 1 MG INJ 0.5 MG IV (06:55)
[2018-01-10 07:50] LABS: Add Manual Diff / Slide Review NO; Basophils Percent Auto 0.3 % (0-2); Eosinophils Percent Auto 4.4 % (2-4); Hematocrit 35.9 % (36-46); Hemoglobin 12.1 g/dL (12.0-16.0); Lymphocytes Percent Auto 29.1 % (25-40); Mean Corpuscular HGB Conc 33.8 % (30-36); Mean Corpuscular Hemoglobin 30.9 PG (26-34); Mean Corpuscular Volume 91.5 fL (80-100); Monocytes Percent Auto 7.8 % (3-14); Neutrophils Absolute Auto 4300 /uL (3000-5900); Neutrophils Percent Auto 58.4 % (50-75); Platelet Count 340 X10^3/uL (150-400); Red Blood Cell Count 3.92 X10^6/uL (4.0-5.2); Red Cell Distribution Width 14.6 % (11.6-14.8); White Blood Cell Count 7.4 X10^3/uL (4.5-11.0)
[2018-01-10] MEDS: FLUCONAZOLE 100 MG/50 ML PIGGYBACK IV (07:52)
[2018-01-10] MEDS: DEXTROSE 5%-0.9% NS 1,000 ML 125 ML IV (07:53)
[2018-01-10 07:59] LABS: Blood Urea Nitrogen 7 mg/dL (7-17); Calcium 8.8 mg/dL (8.4-10.2); Carbon Dioxide 25 mmol/L (22-32); Chloride 109 mmol/L (98-107); Estimated Glomerular Filt Rate > 60.0 mL/min (>60); Glucose 121 mg/dL (70-100); HEMOLYSIS < 15 (0-50); Potassium 3.6 mmol/L (3.4-5.1); Sodium 142 mmol/L (137-145)
--- NOTE | 2018-01-10 08:24 | PC.NURSE ---
blood drawn by lab
--- NOTE | 2018-01-10 08:48 | DI.CT.S_ITS ---
PROCEDURE: CT ABDOMEN W CON INDICATIONS: Post gastric bypass with abdominal pain TECHNIQUE: After the administration of oral and intravenous contrast, 5 mm thick sections acquired from the diaphragms to the iliac crests. 5 mm thick coronal and sagittal reformats were acquired. For radiation dose reduction, the following was used: automated exposure control, adjustment of mA and/or kV according to patient size. COMPARISON: [facility], CT, CT CHEST ABD PEL W CON, 01/07/2018, 21:31. FINDINGS: Image quality: Excellent. Lung bases: Mild patchy consolidation seen within the left lung base. Right lung base appears clear.. Solid organs: Liver is normal in size and enhancement. Gallbladder contracted. Biliary system is non dilated. Pancreas enhances normally. Spleen is normal in size and enhancement. No adrenal nodules. Kidneys are normal in size, without hydronephrosis. Small left renal cysts although technically indeterminate due to size. Peritoneum and bowel: Postsurgical changes involving the stomach presumably from clinically reported gastric bypass and Jayla-en-Y procedure. There is no definite extraluminal contrast leakage. Few tiny foci of left upper quadrant intraperitoneal free air have decreased in size since the prior study. Minimal scattered ascites. A focal collection of contrast seen on image 17 series 2 initially in the left upper quadrant is absent on subsequently obtained CT images and therefore was most likely within bowel loop. No abscess identified. Nodes and vessels: No retroperitoneal or mesenteric adenopathy by size criteria. Aorta and inferior vena cava are normal in size. Bones: No suspicious bony lesions. No vertebral body compression fractures. Miscellaneous: Fat-containing midline ventral hernia appears unchanged IMPRESSION: No evidence of extraluminal contrast material to suggest anastomotic leak. No abscess identified. No evidence of bowel obstruction. Few small bubbles of left upper quadrant free air presumably postoperative which have decreased in size since 01/07/18. Additional chronic and incidental findings as above. Dictated by: Shawn Duncan M.D. on 01/10/2018 at 10:43 Approved by: Shawn Duncan M.D. on 01/10/2018 at 10:50
[2018-01-10 09:03] VITALS: BP 141/75; PULSE 75; RESP 16; O2SAT 99
[2018-01-10 11:58] VITALS: BP 168/83; PULSE 80; RESP 16; TEMP 36.9; O2SAT 100
[2018-01-10 14:27] VITALS: BP 138/80; PULSE 69; RESP 14; O2SAT 100
[2018-01-10 16:15] VITALS: BP 126/67; PULSE 65; RESP 16; O2SAT 98
[2018-01-10 18:29] VITALS: BP 111/63; PULSE 55; RESP 18; TEMP 36.4; O2SAT 100
== END 2018-01-10 18:58 | disposition home or self-care (01) ==
PROVIDERS: Emergency Medicine; Emergency Provider Emergency Medicine; Family Provider Family Medicine; PCP Family Medicine
DX: K63.1 Perforation of intestine (nontraumatic) (principal); R10.9 Unspecified abdominal pain
CPT/HCPCS: 36415; 36591; 71260; 74022; 74150; 74160; 74177; 80048; 80053; 81003; 82550; 82553; 82962; 83605; 83690; 84484; 85025; 93005; 96361; 96365; 96366; 96374; 96375; 96376; 99285; C9113; J1170; J1450; J1956; J2405; Q9967

== ENCOUNTER → 2018-02-26 11:15 | Outpatient (CLI) | payer OTHER, MEDICAID, SELFPAY ==
[2018-02-26 12:41] LABS: Hemoglobin A1C% w Est Avg Glu 5.5 % (4.0-6.0)
[2018-02-26 12:46] LABS: Blood Urea Nitrogen 20 mg/dL (7-17); Calcium 9.8 mg/dL (8.4-10.2); Carbon Dioxide 30 mmol/L (22-32); Chloride 104 mmol/L (98-107); Estimated Glomerular Filt Rate > 60.0 mL/min (>60); Glucose 86 mg/dL (70-100); HEMOLYSIS 27 (0-50); Potassium 4.2 mmol/L (3.4-5.1); Sodium 144 mmol/L (137-145)
== END ==
PROVIDERS: Family Provider Family Medicine; PCP Family Medicine; Visit Provider Family Medicine
DX: Z98.84 Bariatric surgery status (principal); I10 Essential (primary) hypertension; E11.9 Type 2 diabetes mellitus without complications
CPT/HCPCS: 36415; 80048; 83036

== ENCOUNTER 2019-08-06 07:00 | Observation (INO) | payer BC, SELFPAY ==
[2019-08-06] VITALS (7 sets, daily range): BP systolic 140–186; BP diastolic 63–75; PULSE 83–107; RESP 14–20; TEMP 37.1–38.3; O2SAT 92–98; BMI 37.8
--- NOTE | 2019-08-06 07:18 | ED.ABDPAIN ---
HPI - Abdominal Pain General Chief Complaint: Abdominal Pain Stated Complaint: ABD pain Time Seen by Provider: 08/06/19 07:04 Source: patient and EMS Mode of arrival: EMS Limitations: no limitations History of Present Illness HPI narrative: Patient is a 40-year-old female who presents with epigastric and abdominal pain ongoing for the last 2 hours. She feels nauseous at times she has not vomited it radiates up the left side of her chest as well she denies any shortness of breath. She has never had this kind of pain before.. It is intermittent comes and goes in waves complaint: abdominal pain Onset (ago): hour(s) Pain Consistency: intermittent Severity: moderate Quality: cramping and stabbing Radiation: chest Relieving factors: nothing Exacerbating factors: nothing Associated symptoms: nausea Related Data Home Medications Medication Instructions Recorded Confirmed vilhtxihqids-rpq-ckep-FA-vit K 1 cap PO DAILY 08/06/19 08/06/19 [Bariatric Multivitamins] Allergies Allergy/AdvReac Type Severity Reaction Status Date / Time chlorhexidine Allergy Mild rash Verified 08/03/18 08:34 Penicillins [PENICILLINS] Allergy Unknown rash Verified 08/03/18 08:34 Review of Systems Review of Systems Narrative: GENERAL: Denies chills, fatigue, malaise, fever, sweats, travel HEENT: Denies sinus pain, ear pain, sore throat, difficulty swallowing, neck pain RESPIRATORY: Denies dyspnea, cough, wheezing, hemoptysis, sputum. CARDIOVASCULAR: Denies chest pain, palpitations, orthopnea, edema GASTROINTESTINAL: See HPI : Denies dysuria, frequency, incontinence, hematuria, urinary retention, flank pain. MUSCULOSKELETAL: Denies weakness, joint pain, or bony pain SKIN: No rash, no erythema, no pruritus NEUROLOGIC: Denies weakness, dizziness, headache, numbness, change in speech, confusion PSYCHIATRIC: No concerning psychosocial issues. 12 point review of systems is negative except for those stated above and HPI Patient History Medical History Angina, class II (Acute 04/18/14) Atherosclerosis of coronary artery (Chronic) Diabetes mellitus type 2 in obese (Chronic 03/22/13) Environmental allergies (Chronic 03/22/13) Gastroesophageal reflux disease (Chronic 03/22/13) Hypertension (Chronic) Hypertriglyceridemia (Chronic 03/22/13) Moderate tobacco use disorder, in sustained remission (Chronic 04/18/14) Obesity (BMI 30-39.9) (Chronic) Obstructive sleep apnea (Chronic) Vitamin D deficiency (Chronic 10/01/17) Surgical History History of angioplasty S/P bariatric surgery (Chronic ~10/2017) Status post cardiac catheterization Status post delivery Status post hysterectomy Status post tubal ligation Family History Child Alcoholism Grandfather CAD (coronary artery disease) Grandmother Hypertension CVA (cerebral infarction) Alcoholism Mother Hypertension Diabetes mellitus Depression Alcoholism Social History Smoking Status: Former smoker Smoking Status: Former smoker alcohol intake frequency: other Substance Use Type: does not use Exam Initial Vital Signs Initial Vital Signs: Vital Signs Temperature 98.7 F 08/06/19 07:10 Pulse Rate 83 08/06/19 07:10 Respiratory Rate 14 08/06/19 07:10 Blood Pressure 176/75 H 08/06/19 07:10 Pulse Oximetry 98 08/06/19 07:10 GENERAL: Well-appearing, well-nourished and in no acute distress. HEENT: Head atraumatic,EOMI, pupils reactive, CARDIOVASCULAR: Regular rate and rhythm without murmurs, rubs or gallops. RESPIRATORY: Breath sounds equal bilaterally, no wheezes rales or rhonchi. ABDOMEN: Soft, epigastric tenderness positive Cheung sign tender right upper quadrant EXTREMITIES: Normal range of motion, no clubbing or edema. Neurovascularly intact NEUROLOGICAL: Alert and oriented x4.Normal gait and speech. SKIN: Warm, dry, no laceration, no petechiae, no rashes or lesions. Course Orders Ordered: ED Orders 08/06/19 07:23 US abdomen limited Stat XR chest 1V Stat EKG-12 Lead Stat 08/06/19 07:40 Complete Blood Count AUTO DIFF Stat Comprehensive Metabolic Panel Stat Lipase Stat Troponin & CK Cardiac Panel Stat Hydromorphone HCl (Dilaudid) 0.5 mg IV Q4H PRN PRN Reason: Pain, Severe (7-10) Last Admin: 08/06/19 11:18 Dose: 0.5 mg Documented by: JAVID Lactated Ringer's (Lactated Ringers) 1,000 mls @ 125 mls/hr IV CONT SOCORRO Last Admin: 08/06/19 11:18 Dose: 125 mls/hr Documented by: JAVID Ondansetron HCl (Zofran) 4 mg IV Q6HR PRN PRN Reason: Nausea And Vomiting Discontinued Medications Hydromorphone HCl (Dilaudid) 0.5 mg IV NOW ONE Stop: 08/06/19 09:18 Sodium Chloride (Normal Saline 0.9%) 1,000 mls @ 1,000 mls/hr IV BOLUS ONE Stop: 08/06/19 09:12 Last Infusion: 08/06/19 09:30 Dose: 0 mls/hr Documented by: Admin: 08/06/19 08:33 Dose: 1,000 mls/hr Documented by: LORENZO Ceftriaxone Sodium/Dextrose (Rocephin) 2 gm in 50 mls @ 100 mls/hr IV NOW ONE Stop: 08/06/19 10:21 Last Admin: 08/06/19 11:17 Dose: 100 mls/hr Documented by: JAVID Ketorolac Tromethamine (Toradol) 30 mg IV NOW ONE Stop: 08/06/19 07:24 Last Admin: 08/06/19 07:41 Dose: 30 mg Documented by: LORENZO Ondansetron HCl (Zofran) 4 mg IV NOW ONE Stop: 08/06/19 07:24 Last Admin: 08/06/19 07:41 Dose: 4 mg Documented by: LORENZO Vital Signs Vital signs: Vital Signs - 8 hr 08/06/19 07:10 Temperature 98.7 F Pulse Rate 83 Respiratory Rate 14 Blood Pressure 176/75 H Pulse Oximetry 98 MDM - Abdominal Pain Lab Data Attestation: I reviewed the patient's lab results. Result diagrams: 08/06/19 07:40 08/06/19 07:40 Labs: Lab Results 08/06/19 08/06/19 Range/Units 07:40 07:40 WBC 6.9 (4.5-11.0) X10^3/uL RBC 4.77 (4.0-5.2) X10^6/uL Hgb 13.4 (12.0-16.0) g/dL Hct 40.5 (36-46) % MCV 84.8 (80-100) fL MCH 28.2 (26-34) PG MCHC 33.2 (30-36) % RDW 13.9 (11.6-14.8) % Plt Count 364 (150-400) X10^3/uL Neut % (Auto) 67.8 (50-75) % Lymph % (Auto) 24.8 L (25-40) % [place] % (Auto) 3.4 (3-14) % Eos % (Auto) 3.4 (2-4) % Baso % (Auto) 0.6 (0-2) % Neut # (Auto) 4700 (9827-9141) /uL Lymph # (Auto) 1700 (3516-9616) /uL [place] # (Auto) 200 (0-900) /uL Eos # (Auto) 200 (0-450) /uL Baso # (Auto) 0 (0-100) /uL Sodium 141 (137-145) mmol/L Potassium 4.0 (3.4-5.1) mmol/L Chloride 106 (98-107) mmol/L Carbon Dioxide 28 (22-32) mmol/L BUN 18 H (7-17) mg/dL Creatinine 0.80 (0.52-1.04) mg/dL Estimated GFR > 60.0 (>60) mL/min BUN/Creatinine Ratio 22.5 H (6-22) Glucose 138 H (70-100) mg/dL Calcium 9.3 (8.4-10.2) mg/dL Total Bilirubin 0.3 (0.2-1.3) mg/dL AST 26 (14-36) IU/L ALT 23 (<35) IU/L Alkaline Phosphatase 68 (38-126) U/L Total Creatine Kinase 47 (30-135) U/L CK-MB (CK-2) TNP CK-MB (CK-2) Rel Index TNP Troponin I < 0.012 (0.01-0.034) ng/mL Total Protein 7.2 (6.3-8.2) g/dL Albumin 4.1 (3.5-5.0) g/dL Globulin 3.1 (1.7-4.1) g/dL Albumin/Globulin Ratio 1.3 (1.0-2.8) Lipase 1271 H (23-300) U/L Imaging Data Chest x-ray: Radiologist's Impression: PROCEDURE: XR CHEST 1V INDICATIONS: chest pain TECHNIQUE: One view of the chest was acquired. COMPARISON: [facility], CT, CT CHEST ABD PEL W CON, 01/07/2018, 21:31. [facility], CR, XR ACUTE ABDOMEN SERIES, 01/07/2018, 20:29. [facility], CR, CHEST 2 VIEW, 04/01/2014, 23:40. FINDINGS: Surgical changes and devices: None. Lungs and pleura: An incomplete inspiratory result is noted, causing a crowded appearance to the lung markings. No focal infiltrates are seen. No pneumothorax or significant pleural effusions are seen. Mediastinum: Mediastinal contours appear normal. Heart size is at the upper limits of normal for portable technique. Bones and chest wall: No suspicious bony lesions. Overlying soft tissues appear unremarkable. IMPRESSION: Limited portable chest examination, without a significant cardiopulmonary abnormality identified. Dictated by: Yoni Brewster M.D. on 08/06/2019 at 8:33 US - abdomen: Radiologist's Impression: PROCEDURE: US ABDOMEN LIMITED INDICATIONS: RIGHT UPPER QUADRANT PAIN TECHNIQUE: Real-time focused scanning was performed of the abdomen, with image documentation. COMPARISON: [facility], CT, CT ABDOMEN W CON, 01/10/2018, 9:02. FINDINGS: The gallbladder is filled with sludge and stones. There is no gallbladder wall thickening. There is tenderness on examination with the transducer. No fluid around the gallbladder. Liver has a normal echo pattern. No dilated intrahepatic ducts. Extrahepatic ducts visualized secondary to overlying bowel gas. IMPRESSION: Findings may potentially represent acute cholecystitis. Gallbladder is filled with stones and sludge. There is pain on examination. Suggest clinical correlation. Comment: Preliminary findings were reported by the forge heater to Dr. Adan at the time of study completion. Dictated by: Michael Dunn M.D. on 08/06/2019 at 8:47 ECG Data Attestation: I personally reviewed and interpreted this ECG as follows: Prior ECG tracings: available for review Interpretation: Normal sinus rhythm rate 79 p.r. interval 120 QRS [address] elevation depression T-wave inversion MDM Narrative Medical decision making narrative: I called and spoke with Dr. Sunshine, concern for acute cholecystitis and pancreatitis. She says keep her NPO. She is in ED to see and evaluate patient. Patient admitted. Discharge Plan Departure Patient Disposition: Admitted As Inpatient Clinical Impression: Acute gallstone pancreatitis Discharge Date/Time: 08/06/19 09:55 Admit Date/Time: 08/06/19 09:28 Admit Provider: Paula Sunshine
--- NOTE | 2019-08-06 07:23 | DI.RAD.S_ITS ---
PROCEDURE: XR CHEST 1V INDICATIONS: chest pain TECHNIQUE: One view of the chest was acquired. COMPARISON: [facility], CT, CT CHEST ABD PEL W CON, 01/07/2018, 21:31. [facility], CR, XR ACUTE ABDOMEN SERIES, 01/07/2018, 20:29. [facility], CR, CHEST 2 VIEW, 04/01/2014, 23:40. FINDINGS: Surgical changes and devices: None. Lungs and pleura: An incomplete inspiratory result is noted, causing a crowded appearance to the lung markings. No focal infiltrates are seen. No pneumothorax or significant pleural effusions are seen. Mediastinum: Mediastinal contours appear normal. Heart size is at the upper limits of normal for portable technique. Bones and chest wall: No suspicious bony lesions. Overlying soft tissues appear unremarkable. IMPRESSION: Limited portable chest examination, without a significant cardiopulmonary abnormality identified. Dictated by: Yoni Brewster M.D. on 08/06/2019 at 8:33 Approved by: Yoni Brewster M.D. on 08/06/2019 at 8:34
--- NOTE | 2019-08-06 07:23 | DI.US.S_ITS ---
PROCEDURE: US ABDOMEN LIMITED INDICATIONS: RIGHT UPPER QUADRANT PAIN TECHNIQUE: Real-time focused scanning was performed of the abdomen, with image documentation. COMPARISON: [facility], CT, CT ABDOMEN W CON, 01/10/2018, 9:02. FINDINGS: The gallbladder is filled with sludge and stones. There is no gallbladder wall thickening. There is tenderness on examination with the transducer. No fluid around the gallbladder. Liver has a normal echo pattern. No dilated intrahepatic ducts. Extrahepatic ducts visualized secondary to overlying bowel gas. IMPRESSION: Findings may potentially represent acute cholecystitis. Gallbladder is filled with stones and sludge. There is pain on examination. Suggest clinical correlation. Comment: Preliminary findings were reported by the buffet waiter/waitress to Dr. Adan at the time of study completion. Dictated by: Michael Dunn M.D. on 08/06/2019 at 8:47 Approved by: Michael Dunn M.D. on 08/06/2019 at 8:49
[2019-08-06] MEDS: ONDANSETRON 4 MG/2 ML INJ IV (07:41)
[2019-08-06] MEDS: KETOROLAC 60 MG/2 ML VIAL 30 MG IV (07:41)
[2019-08-06 07:52] LABS: Add Manual Diff / Slide Review NO; Basophils Absolute Auto 0 /uL (0-100); Basophils Percent Auto 0.6 % (0-2); Eosinophils Absolute Auto 200 /uL (0-450); Eosinophils Percent Auto 3.4 % (2-4); Hematocrit 40.5 % (36-46); Hemoglobin 13.4 g/dL (12.0-16.0); Lymphocytes Absolute Auto 1700 /uL (1100-4500); Lymphocytes Percent Auto 24.8 % (25-40); Mean Corpuscular HGB Conc 33.2 % (30-36); Mean Corpuscular Hemoglobin 28.2 PG (26-34); Mean Corpuscular Volume 84.8 fL (80-100); Monocytes Absolute Auto 200 /uL (0-900); Monocytes Percent Auto 3.4 % (3-14); Neutrophils Absolute Auto 4700 /uL (1500-7000); Neutrophils Percent Auto 67.8 % (50-75); Platelet Count 364 X10^3/uL (150-400); Red Blood Cell Count 4.77 X10^6/uL (4.0-5.2); Red Cell Distribution Width 13.9 % (11.6-14.8); White Blood Cell Count 6.9 X10^3/uL (4.5-11.0)
[2019-08-06 08:03] LABS: Alanine Aminotransferase 23 IU/L (<35); Albumin 4.1 g/dL (3.5-5.0); Albumin Globulin Ratio 1.3 (1.0-2.8); Alkaline Phosphatase 68 U/L (38-126); Aspartate Aminotransferase 26 IU/L (14-36); BUN Creatinine Ratio 22.5 (6-22); Bilirubin Total 0.3 mg/dL (0.2-1.3); Blood Urea Nitrogen 18 mg/dL (7-17); Calcium 9.3 mg/dL (8.4-10.2); Carbon Dioxide 28 mmol/L (22-32); Chloride 106 mmol/L (98-107); Creatine Kinase 47 U/L (30-135); Estimated Glomerular Filt Rate > 60.0 mL/min (>60); Globulin 3.1 g/dL (1.7-4.1); Glucose 138 mg/dL (70-100); HEMOLYSIS < 15 (0-50); Lipase 1271 U/L (23-300); Sodium 141 mmol/L (137-145); Total Protein 7.2 g/dL (6.3-8.2)
[2019-08-06 08:15] LABS: Troponin I < 0.012 ng/mL (0.01-0.034)
[2019-08-06] MEDS: SODIUM CHLORIDE 0.9% 1,000 ML 1000 ML IV (08:33)
--- NOTE | 2019-08-06 09:33 | PC.NURSE ---
Offered pt pain medication prior to transport to room upstairs. Pt said she is ok for now and would like to wait on medication.
--- NOTE | 2019-08-06 11:05 | P.HP_ITS ---
History of Present Illness History of Present Illness Date Patient Seen: 08/06/19 Time Patient Seen: 11:05 Chief complaint: ABD pain Narrative: This is a 48 yo woman with who came into the ER this morning with complaint of severe epigastric pain radiating to her left shoulder that began this morning around 4 or 5:00 a.m.. She can't pinpoint a particular etiology of the pain, and she denies any associated jaundice, nausea, vomiting, fevers. She came into the ER and had labs drawn, and the right upper quadrant ultrasound which showed gallstones in the gallbladder, and no abnormal bile ducts. In the ER her lipase was 1200, but her other labs were normal. No white blood cell count and no elevated bilirubin. She says she came into the ER because she thought she was having a heart attack. She has had 2 heart attacks in the past. One was 5 years ago, and 1 was 8 years ago. She says she has angioplasty for both of those, and was on Plavix for 6 months, but was taken off of it and is not on any blood thinners at this time. In the ER her troponin and EKG were normal. She had a gastric bypass in October of 2017, and has lost 100 lb since then. ROS: Narrative: GENERAL: Denies chills, fatigue, malaise, fever, sweats, travel HEENT: Denies sinus pain, ear pain, sore throat, difficulty swallowing, neck pain RESPIRATORY: Denies dyspnea, cough, wheezing, hemoptysis, sputum. CARDIOVASCULAR: Denies chest pain, palpitations, orthopnea, edema GASTROINTESTINAL: See HPI : Denies dysuria, frequency, incontinence, hematuria, urinary retention, flank pain. MUSCULOSKELETAL: Denies weakness, joint pain, or bony pain SKIN: No rash, no erythema, no pruritus NEUROLOGIC: Denies weakness, dizziness, headache, numbness, change in speech, confusion PSYCHIATRIC: No concerning psychosocial issues. PE: GENERAL: Alert, comfortable, nontoxic, morbidly obese HENT: Normocephalic, atraumatic. Hearing intact. Oral mucosa is pink and moist. EYES: Conjunctiva pink, sclera white, no periorbital swelling. CARDIOVASCULAR: Regular rate. No pedal edema. RESPIRATORY: Non-tachypneic, breathing comfortably on room air. GASTROINTESTINAL: Abdomen soft and non-distended, tender to palpation in epigastrium and bilateral upper quadrants GENITALURINARY: No flank tenderness. MUSCULOSKELETAL: Equal tone and mass bilaterally. SKIN: Warm, dry, soft, appropriate color for ethnicity. No other lesions, rashes, or wounds. NEURO: Alert and Oriented X 3. No gross sensory deficits, or cognitive issues. PSYCH: Appropriate affect and mood. Patient History Medical History Angina, class II (Acute 04/18/14) Atherosclerosis of coronary artery (Chronic) Diabetes mellitus type 2 in obese (Chronic 03/22/13) Environmental allergies (Chronic 03/22/13) Gastroesophageal reflux disease (Chronic 03/22/13) Hypertension (Chronic) Hypertriglyceridemia (Chronic 03/22/13) Moderate tobacco use disorder, in sustained remission (Chronic 04/18/14) Obesity (BMI 30-39.9) (Chronic) Obstructive sleep apnea (Chronic) Vitamin D deficiency (Chronic 10/01/17) Surgical History History of angioplasty S/P bariatric surgery (Chronic ~10/2017) Status post cardiac catheterization Status post delivery Status post hysterectomy Status post tubal ligation Family & Social History Family History Child Alcoholism Grandfather CAD (coronary artery disease) Grandmother Hypertension CVA (cerebral infarction) Alcoholism Mother Hypertension Diabetes mellitus Depression Alcoholism Safety & Behavioral: Feels Safe in Current Yes Environment Tobacco & Substance use: Smoking Status Former smoker alcohol intake frequency other Substance Use Type does not use Meds Home Medications and Allergies Home Medications Medication Instructions Recorded Confirmed Type [id number]-vit K 1 cap PO DAILY 08/06/19 08/06/19 History [Bariatric Multivitamins] Allergies Allergy/AdvReac Type Severity Reaction Status Date / Time chlorhexidine Allergy Mild rash Verified 08/03/18 08:34 Penicillins [PENICILLINS] Allergy Unknown rash Verified 08/03/18 08:34 Exam Vital Signs (past 8 hours): - 08/06/19 07:10 08/06/19 09:32 08/06/19 10:05 Temperature 98.7 F 98.9 F Pulse Rate 83 93 H 100 H Respiratory Rate 14 18 20 Blood Pressure 176/75 H 176/75 H 146/67 H Pulse Oximetry 98 98 98 Oxygen Delivery Method Room Air Oxygen Flow Rate 0 Objective ECG Impression: Abdominal ultrasound: Gallstones and sludge, positive Cheung sign, no dilated bile ducts Labs Result Diagrams: 08/06/19 07:40 08/06/19 07:40 Labs: Laboratory Results - last 24 hr 08/06/19 08/06/19 07:40 07:40 WBC 6.9 RBC 4.77 Hgb 13.4 Hct 40.5 MCV 84.8 MCH 28.2 MCHC 33.2 RDW 13.9 Plt Count 364 Neut % (Auto) 67.8 Lymph % (Auto) 24.8 L [place] % (Auto) 3.4 Eos % (Auto) 3.4 Baso % (Auto) 0.6 Neut # (Auto) 4700 Lymph # (Auto) 1700 [place] # (Auto) 200 Eos # (Auto) 200 Baso # (Auto) 0 Sodium 141 Potassium 4.0 Chloride 106 Carbon Dioxide 28 BUN 18 H Creatinine 0.80 Estimated GFR > 60.0 BUN/Creatinine Ratio 22.5 H Glucose 138 H Calcium 9.3 Total Bilirubin 0.3 AST 26 ALT 23 Alkaline Phosphatase 68 Total Creatine Kinase 47 CK-MB (CK-2) TNP CK-MB (CK-2) Rel Index TNP Troponin I < 0.012 Total Protein 7.2 Albumin 4.1 Globulin 3.1 Albumin/Globulin Ratio 1.3 Lipase 1271 H Assessment & Plan Assessment and plan (1) Acute gallstone pancreatitis: Problem details: By labs and ultrasound, treated with pancreas rest Current visit: Yes Status: Acute (2) Obstructive sleep apnea: Current visit: No Status: Chronic (3) Obesity (BMI 30-39.9): Current visit: No Status: Chronic (4) S/P bariatric surgery: Problem details: Laparaoscopic RY Gastric Bypass, DOS weight 270 Current visit: No Status: Chronic (5) Hypertension: Current visit: No Status: Chronic (6) Hypertriglyceridemia: Current visit: No Status: Chronic Assessment & Plan narrative: This is a 48-year-old woman with history of morbid obesity, obstructive sleep apnea, and hypertension. She presents with an elevated lipase and gallstones, consistent with biliary pancreatitis. Based on her labs and her presentation my suspicion is that she passed a gallstone which has transiently caused an elevation in her lipase. If the gallstone passes through and her lipase resolves, we'll go ahead and remove her gallbladder on this admission. If, based on repeat labs, obstruction of the bile duct is suspected, we will get an MRCP and consider GI consultation and transfer for ERCP prior to cholecystectomy. Plan: NPO except for water and ice chips IV fluid IV pain meds, IV antiemetic as needed IV antibiotic for cholecystitis Repeat labs this evening Possible cholecystectomy tomorrow or the next day depending on labs and exam improving Time Spent With Patient Time with patient: 25 - 35 minutes
[2019-08-06] MEDS: CEFTRIAXONE 2 GM/50 ML FROZ.PIGGY IV (11:17)
[2019-08-06] MEDS: HYDROMORPHONE 0.5 MG INJ IV ×3 (11:18→20:52)
[2019-08-06] MEDS: LACTATED RINGERS 1,000 ML 125 ML IV ×2 (11:18→18:47)
[2019-08-06] MEDS: INFLUENZA VACCINE 0.5 ML SYRINGE IM (13:56)
[2019-08-06 18:00] LABS: Add Manual Diff / Slide Review NO; Basophils Absolute Auto 0 /uL (0-100); Basophils Percent Auto 0.4 % (0-2); Eosinophils Absolute Auto 0 /uL (0-450); Eosinophils Percent Auto 0.2 % (2-4); Hematocrit 36.3 % (36-46); Lymphocytes Absolute Auto 1000 /uL (1100-4500); Lymphocytes Percent Auto 7.3 % (25-40); Mean Corpuscular Hemoglobin 27.8 PG (26-34); Mean Corpuscular Volume 84.3 fL (80-100); Monocytes Absolute Auto 700 /uL (0-900); Monocytes Percent Auto 4.8 % (3-14); Neutrophils Absolute Auto 12100 /uL (1500-7000); Neutrophils Percent Auto 87.3 % (50-75); Platelet Count 320 X10^3/uL (150-400); Red Cell Distribution Width 13.8 % (11.6-14.8); White Blood Cell Count 13.9 X10^3/uL (4.5-11.0)
[2019-08-06 18:05] LABS: Alanine Aminotransferase 21 IU/L (<35); Albumin 3.6 g/dL (3.5-5.0); Albumin Globulin Ratio 1.2 (1.0-2.8); Alkaline Phosphatase 57 U/L (38-126); Aspartate Aminotransferase 22 IU/L (14-36); BUN Creatinine Ratio 26.3 (6-22); Bilirubin Total 0.4 mg/dL (0.2-1.3); Blood Urea Nitrogen 21 mg/dL (7-17); Calcium 8.9 mg/dL (8.4-10.2); Carbon Dioxide 25 mmol/L (22-32); Chloride 107 mmol/L (98-107); Estimated Glomerular Filt Rate > 60.0 mL/min (>60); Globulin 2.9 g/dL (1.7-4.1); Glucose 179 mg/dL (70-100); HEMOLYSIS < 15 (0-50); Lipase 324 U/L (23-300); Potassium 4.3 mmol/L (3.4-5.1); Sodium 140 mmol/L (137-145); Total Protein 6.5 g/dL (6.3-8.2)
[2019-08-06] MEDS: HEPARIN 5,000 UNIT/ML VIAL 5000 UNIT SUBCUT (18:44)
[2019-08-06] MEDS: metroNIDAZOLE 500 MG/100 ML PIGGYBACK 100 MG IV (18:45)
[2019-08-06] MEDS: KETOROLAC 15 MG/ML VIAL IV (19:04)
[2019-08-07] VITALS (17 sets, daily range): BP systolic 111–150; BP diastolic 51–78; PULSE 79–104; RESP 15–93; TEMP 36.9–37.7; O2SAT 89–98
--- NOTE | 2019-08-07 | PATH_ITS ---
[facility] Accession Number: [id number] . 01 Material submitted: . gallbladder - GALLBLADDER AND CONTENTS . 01 Clinical history: . ABD PAIN . 02 Diagnosis: Gallbladder And Contents, Laparoscopic Cholecystectomy: Acute and chronic cholecystitis and cholelithiasis. [facility] 08/11/2019 0951 Local . 02 Electronically signed: . Malka Pedroza MD, Pathologist NPI- [id number] . 01 Gross description: . Received in formalin, labeled gallbladder + contents, is an intact gallbladder (length-5.2 cm, diameter-1.4 cm) with dockery-pink smooth shiny serosa and a patent cystic duct. No lymph nodes are identified. The lumen is diffusely stenotic and contains dockery-green gelatinous material and fragments of gritty pale yellow calculi (0.1 by less than 0.1 by less than 0.1 cm in aggregate). The wall is up to 0.4 cm thick. No nodules, masses or lesions are identified. Section code: (A1) cystic duct resection margin and three personal service representative serial sections from the body; (A2) three personal service representative longitudinal sections from the fundus. ([id number]) /MRV 08/10/2019 1353 Local . 02 Pathologist provided ICD-10: K81.2, K80.60 . 02 CPT . 014496 Performed at: 01 [facility] [address], [place], [place] [id number] MD Melvin Valerio MD Phone: [phone] Performed at: 02 [facility] [address] [place], [place] [id number] MD Idalia Colon MD Phone: [phone]
[2019-08-07] MEDS: KETOROLAC 15 MG/ML VIAL IV ×4 (01:26→18:51)
[2019-08-07] MEDS: metroNIDAZOLE 500 MG/100 ML PIGGYBACK 100 MG IV ×2 (02:06→09:49)
[2019-08-07] MEDS: HYDROMORPHONE 0.5 MG INJ IV ×5 (03:30→22:26)
[2019-08-07] MEDS: LACTATED RINGERS 1,000 ML 125 ML IV ×2 (03:32→17:21)
--- NOTE | 2019-08-07 05:11 | PC.NURSE ---
Pt reports pain ranging from 4-7/10 overnight. Pt found addition of IV ketorolac to be very effective. Pt did have one report of increased pain at epigastric/upper quadrants when returning from BR, feeling of popping/spasms with score of 7. Pt given IV dilaudid at that time as pain did not subside with rest. On reassessment pain well controlled with report of pain score 4. Pt NPO except water and ice (no volume limit) until 0800 when pt will be strict NPO. NOTE: Pt originally to be ordered to be strict NPO at 0600, but Dr Sunshine in house and reschedule surgery to 1100 from 0900. Pt with hypoactive bowel tones, passing occasional flatus per pt. Maintenance IVF of LR @ 125cc/hr. BG q6hr with SSI correction. Using ACHS correction scale. Pt has history of IL x2, no reports of cardiac discomfort. Pt thought the pain she was experiencing before she came to ER was another IL. AM labs pending results. IV antifungal/antibiotics given per order. No s/s infection. Pt SBA to BR due to pain and weakness, using call light appropriately. Supportive spouse at bedside.
[2019-08-07 05:30] LABS: Add Manual Diff / Slide Review NO; Basophils Absolute Auto 0 /uL (0-100); Basophils Percent Auto 0.3 % (0-2); Eosinophils Absolute Auto 100 /uL (0-450); Eosinophils Percent Auto 0.6 % (2-4); Hematocrit 31.8 % (36-46); Hemoglobin 10.6 g/dL (12.0-16.0); Lymphocytes Absolute Auto 2000 /uL (1100-4500); Lymphocytes Percent Auto 15.4 % (25-40); Mean Corpuscular HGB Conc 33.5 % (30-36); Mean Corpuscular Hemoglobin 28.1 PG (26-34); Monocytes Absolute Auto 900 /uL (0-900); Neutrophils Absolute Auto 10100 /uL (1500-7000); Neutrophils Percent Auto 76.7 % (50-75); Platelet Count 279 X10^3/uL (150-400); Red Blood Cell Count 3.78 X10^6/uL (4.0-5.2); Red Cell Distribution Width 13.6 % (11.6-14.8); White Blood Cell Count 13.2 X10^3/uL (4.5-11.0)
[2019-08-07 05:43] LABS: Alanine Aminotransferase 16 IU/L (<35); Albumin 3.1 g/dL (3.5-5.0); Albumin Globulin Ratio 1.1 (1.0-2.8); Alkaline Phosphatase 49 U/L (38-126); Aspartate Aminotransferase 18 IU/L (14-36); BUN Creatinine Ratio 24.4 (6-22); Bilirubin Total 0.4 mg/dL (0.2-1.3); Blood Urea Nitrogen 22 mg/dL (7-17); Calcium 8.7 mg/dL (8.4-10.2); Carbon Dioxide 27 mmol/L (22-32); Chloride 105 mmol/L (98-107); Estimated Glomerular Filt Rate > 60.0 mL/min (>60); Globulin 2.7 g/dL (1.7-4.1); Glucose 122 mg/dL (70-100); HEMOLYSIS < 15 (0-50); Lipase 86 U/L (23-300); Magnesium 1.8 mg/dL (1.6-2.3); Potassium 4.1 mmol/L (3.4-5.1); Sodium 138 mmol/L (137-145); Total Protein 5.8 g/dL (6.3-8.2)
[2019-08-07] MEDS: CEFTRIAXONE 2 GM/50 ML FROZ.PIGGY IV (06:27)
[2019-08-07] MEDS: PANTOPRAZOLE 40 MG VIAL IV (08:03)
--- NOTE | 2019-08-07 09:48 | PM.PN.1 ---
Subjective Subjective Date Patient Seen: 08/07/19 Time Patient Seen: 09:48 Interval history: The patient feels better this morning. She says her pain is almost completely resolved. She had a couple of episodes of ?popping? in her upper abdomen last evening. She feels like her pain resolved after this happened. Exam Vital Signs (past 8 hours): - 08/07/19 03:50 08/07/19 08:00 Temperature 98.9 F 99.1 F Pulse Rate 87 86 Respiratory Rate 16 16 Blood Pressure 123/66 120/61 Pulse Oximetry 95 95 Oxygen Delivery Method Room Air Oxygen Flow Rate 0 Narrative Exam Narrative: GENERAL: Alert, comfortable, nontoxic HENT: Normocephalic, atraumatic. Hearing intact. Oral mucosa is pink and moist. EYES: Conjunctiva pink, sclera white, no periorbital swelling. CARDIOVASCULAR: Regular rate. No pedal edema. RESPIRATORY: Non-tachypneic, breathing comfortably on room air. GASTROINTESTINAL: Abdomen soft and non-distended; minimally tender to palpation in the epigastrium, and right upper quadrant GENITALURINARY: No flank tenderness. MUSCULOSKELETAL: Equal tone and mass bilaterally. SKIN: Warm, dry, soft, appropriate color for ethnicity. No other lesions, rashes, or wounds. NEURO: Alert and Oriented X 3. No gross sensory deficits, or cognitive issues. PSYCH: Appropriate affect and mood. Objective Labs Result Diagrams: 08/07/19 05:11 08/07/19 05:11 Labs: Laboratory Results - last 24 hr 08/06/19 08/06/19 08/07/19 17:45 17:45 05:11 WBC 13.9 H D 13.2 H RBC 4.30 3.78 L Hgb 12.0 10.6 L Hct 36.3 31.8 L MCV 84.3 84.0 MCH 27.8 28.1 MCHC 33.0 33.5 RDW 13.8 13.6 Plt Count 320 279 Neut % (Auto) 87.3 H 76.7 H Lymph % (Auto) 7.3 L 15.4 L [place] % (Auto) 4.8 7.0 Eos % (Auto) 0.2 L 0.6 L Baso % (Auto) 0.4 0.3 Neut # (Auto) 71832 H 40164 H Lymph # (Auto) 1000 L 2000 [place] # (Auto) 700 900 Eos # (Auto) 0 100 Baso # (Auto) 0 0 Sodium 140 Potassium 4.3 Chloride 107 Carbon Dioxide 25 BUN 21 H Creatinine 0.80 Estimated GFR > 60.0 BUN/Creatinine Ratio 26.3 H Glucose 179 H Calcium 8.9 Magnesium Total Bilirubin 0.4 AST 22 ALT 21 Alkaline Phosphatase 57 Total Protein 6.5 Albumin 3.6 Globulin 2.9 Albumin/Globulin Ratio 1.2 Lipase 324 H D 08/07/19 05:11 WBC RBC Hgb Hct MCV MCH MCHC RDW Plt Count Neut % (Auto) Lymph % (Auto) [place] % (Auto) Eos % (Auto) Baso % (Auto) Neut # (Auto) Lymph # (Auto) [place] # (Auto) Eos # (Auto) Baso # (Auto) Sodium 138 Potassium 4.1 Chloride 105 Carbon Dioxide 27 BUN 22 H Creatinine 0.90 Estimated GFR > 60.0 BUN/Creatinine Ratio 24.4 H Glucose 122 H Calcium 8.7 Magnesium 1.8 Total Bilirubin 0.4 AST 18 ALT 16 Alkaline Phosphatase 49 Total Protein 5.8 L Albumin 3.1 L Globulin 2.7 Albumin/Globulin Ratio 1.1 Lipase 86 D Assessment & Plan Assessment and plan (1) Acute gallstone pancreatitis: Problem details: By labs and ultrasound, treated with pancreas rest Current visit: Yes Status: Acute (2) Obstructive sleep apnea: Current visit: No Status: Chronic (3) Diabetes mellitus type 2 in obese: Current visit: No Status: Chronic (4) Gastroesophageal reflux disease: Current visit: No Status: Chronic (5) Hypertension: Current visit: No Status: Chronic (6) Obesity (BMI 30-39.9): Current visit: No Status: Chronic (7) S/P bariatric surgery: Problem details: Laparaoscopic RY Gastric Bypass, DOS weight 270 Current visit: No Status: Chronic Assessment & Plan narrative: This morning we discussed the plan to go ahead with cholecystectomy today risks and benefits of this procedure were discussed. Specifically risk of bleeding, infection, damage to nearby structures, bile duct injury, need for additional procedures, need for transfer to tertiary care if she sustained a bile duct injury, risk of retained stones, the difficulty of ERCP to extract retained stones given her history of Jayla-en-Y gastric bypass. The patient desires to proceed with laparoscopic possible open cholecystectomy with possible intraop cholangiogram. Time Spent With Patient Time with patient: 15-24 minutes Quality VTE Deep Vein Thrombosis/Pulmonary Embolism Present on Admission: No
--- NOTE | 2019-08-07 14:06 | PC.NURSE ---
Day shift: Pt off unit at approx 1405 for surgery. SARA.
--- NOTE | 2019-08-07 16:03 | SUR.OPER ---
Supine on padded OR bed, head on pillow, arms secured on padded arm boards at <90 degrees abduction, legs uncrossed, safety belt at thigh, tape over blanket over lower legs.
[2019-08-07] MEDS: BUPIVACAINE 0.25% W/ EPI 30 ML VIAL INJ (16:08)
[2019-08-07 18:30] LABS: Amylase Body Fluid < 30 IU/L
--- NOTE | 2019-08-07 19:01 | PM.OP.1 ---
Operative Date/Time/Diagnoses Date of procedure: 08/07/19 Time of procedure: 19:01 Pre-op diagnosis: Acute cholecystitis, gallstone pancreatitis Post-op diagnosis: other (Acute on chronic cholecystitis) Procedure & Clinicians Procedure: Laparoscopic cholecystectomy, Fluoroscene cholangiography with indocyanine green Same procedure as scheduled: Yes Indications: Gall stones, pancreatitis, cholecystitis Surgeon: Paula Sunshine Click Yes if Unassisted: Yes Anesthesia Type: General Operative Notes Specimen(s): other (Gallbladder, peritoneal fluid for culture and fluid amylase level) Estimated Blood Loss (mL): 1 Blood products transfused: none Procedure in detail: The patient was brought into the operating room and placed supine on the OR table. Sequential compression devices were placed on both legs and turned on. Appropriate perioperative antibiotics were given prior to the start of surgery. General anesthesia was induced the patient was intubated. The abdomen was prepped and draped in sterile fashion. Surgical time-out was conducted. Local anesthetic was injected under the skin just superior to the umbilicus and a 5 mm vertical incision was made at this site. The umbilical stalk was grasped with a [place] and elevated. A Veress needle was passed through the fascia into proper position. The position was tested with a saline drop test which was appropriate for intra-abdominal Veress needle placement. The abdomen was then insufflated in the usual fashion. Once insufflated to 15 mm Hg the Veress needle was removed and a 5 mm optical trocar was placed under direct vision using a 5 mm 30 degree scope. Once the camera was inside the abdomen I took a look around. There was no injury from port placement. Two additional ports were placed in a similar fashion in the right upper quadrant and a 10 mm port was placed in the epigastrium. There was adherent omentum overlying the gallbladder, and attaching it to the colon, stomach, and duodenum. When I lifted up the omentum and looked under the liver into the subhepatic, there is quite a bit of murky fluid there. Also on the right lateral side of the liver in the gutter, there was some murky greenish fluid as well. I suctioned out the fluid and sent it for culture, Gram stain, and amylase. I did not see a source for the fluid, as the gallbladder was not perforated, and the stomach and colon looked relatively normal. Once the omentum was taken down and the gallbladder was exposed, through the 2 lateral ports the gallbladder was grasped and elevated and the infundibulum was retracted laterally to the patient's right. This exposed the gallbladder hilum and allowed for dissection of the cystic duct and cystic artery. There is quite a bit of dense scar tissue throughout the gallbladder hilum. This required tedious careful dissection to avoid injury to the bile ducts. Indocyanine green was previously given in the pre op area, and at this point in the operation, we turned on the fluoroscene lamp and viewed the bile ducts using ICG cholangiography. A very long singular cystic duct was seen entering the common bile duct well below the area of dissection, giving us a good indication of safe dissection and avoidance of common bile duct. We then continued dissecting out the cystic duct and artery. Once the cystic duct and artery were completely dissected out and I was able to see liver behind and between both structures without any other structures in the way, giving us the critical view of safety. At this point I doubly clipped both structures on the patient's side and put a single clip on the gallbladder side of both the cystic duct and artery. Both structures were then divided with laparoscopic Carlos. Following this the gallbladder was gradually dissected free from the liver. There was quite a bit of hypervascularity of the scar tissue between the gallbladder and the liver. Several small vessels had to be controlled with cautery. Once the gallbladder was entirely freed, it was placed inside an Endo-Catch bag and removed through the epigastric port site. I did not have to enlarge the epigastric site in order to get the gallbladder out. Once it was out and passed off to the back table I then took another look inside the abdomen. I suctioned clean any remaining blood or fluid on the lateral side of the liver and in the subhepatic space. There was no active bleeding or leaking of bile from the gallbladder fossa or from the clipped stumps of the cystic duct and artery. At this point the insufflation was removed from the abdomen and the epigastric port site was closed with 0 Vicryl suture in the fascia, 3 O Vicryl in the subcutaneous layers, and 4 Monocryl in the skin. The remaining port sites were closed with 4 Monocryl in the skin. Each port site was sealed with Dermabond. Local anesthetic was given at each of the port sites and in the fascia. This concluded the procedure. At this point the needle sponge and instrument counts were correct. The gallbladder was passed off the table for pathology. Patient was awakened from anesthesia and extubated. She was transferred to the postanesthesia care unit in stable condition. Complications: none Post-operative Condition: stable Disposition: PACU Plan for aftercare: return to unit
--- NOTE | 2019-08-07 21:04 | PC.NURSE ---
Nina shift note: Patient return to room 220 S/P lap Cholecystectomy. Received on O2 at 2L via NC, sat 92%. Up out of bed, ambulated with SBA to BR, voided 250 shortly after arrival. SCD in place. Medicated for pain as ordered. Family at bedside providing supportive care. Call light within reach.
[2019-08-07] MEDS: HEPARIN 5,000 UNIT/ML VIAL 5000 UNIT SUBCUT (21:48)
[2019-08-08] MEDS: KETOROLAC 15 MG/ML VIAL IV ×2 (00:54→06:40)
[2019-08-08] MEDS: ACETAMINOPHEN 325 MG TABLET 650 MG PO (01:23)
[2019-08-08] MEDS: HYDROMORPHONE 0.5 MG INJ IV ×3 (01:24→09:22)
[2019-08-08] MEDS: SODIUM CHLORIDE 0.9% FLUSH 10 ML IV ×3 (01:25→09:21)
[2019-08-08] MEDS: ONDANSETRON 4 MG/2 ML INJ IV (01:30)
--- NOTE | 2019-08-08 05:04 | PC.NURSE ---
POD 1 s/p lap taniya. 4 surgical sites intact, no drainage, no redness or s/s infection. Surgical glue noted. Pt reports pain at LUQ/RUQ. Rates 4-6/10. Administered ketorolac at 0000, Pt had con't pain 30mins and administered 0.5 mg IV dilaudid. Pt stated relief and pain effectively controlled. Pt did report nausea x1. Zofran given with good effect. Able to sip clear liquids without emesis. Abdominal cultures pending results. Bowel sounds hypoactive, pt reports burping. Ambu in aburto x1 with SBA and FWW. Anticipate to home today. Supportive spouse at bedside.
[2019-08-08 05:21] LABS: Add Manual Diff / Slide Review NO; Basophils Absolute Auto 0 /uL (0-100); Basophils Percent Auto 0.2 % (0-2); Eosinophils Absolute Auto 100 /uL (0-450); Eosinophils Percent Auto 1.3 % (2-4); Hematocrit 28.5 % (36-46); Hemoglobin 9.5 g/dL (12.0-16.0); Lymphocytes Absolute Auto 1400 /uL (1100-4500); Lymphocytes Percent Auto 12.6 % (25-40); Mean Corpuscular HGB Conc 33.2 % (30-36); Mean Corpuscular Hemoglobin 28.3 PG (26-34); Mean Corpuscular Volume 85.3 fL (80-100); Monocytes Absolute Auto 700 /uL (0-900); Monocytes Percent Auto 6.8 % (3-14); Neutrophils Absolute Auto 8500 /uL (1500-7000); Neutrophils Percent Auto 79.1 % (50-75); Platelet Count 257 X10^3/uL (150-400); Red Blood Cell Count 3.34 X10^6/uL (4.0-5.2); Red Cell Distribution Width 13.8 % (11.6-14.8); White Blood Cell Count 10.8 X10^3/uL (4.5-11.0)
[2019-08-08 05:24] LABS: Alanine Aminotransferase 22 IU/L (<35); Albumin 2.9 g/dL (3.5-5.0); Alkaline Phosphatase 57 U/L (38-126); Aspartate Aminotransferase 28 IU/L (14-36); BUN Creatinine Ratio 21.1 (6-22); Bilirubin Total 0.2 mg/dL (0.2-1.3); Blood Urea Nitrogen 19 mg/dL (7-17); Calcium 8.3 mg/dL (8.4-10.2); Carbon Dioxide 25 mmol/L (22-32); Chloride 107 mmol/L (98-107); Estimated Glomerular Filt Rate > 60.0 mL/min (>60); Globulin 2.9 g/dL (1.7-4.1); Glucose 111 mg/dL (70-100); HEMOLYSIS < 15 (0-50); Lipase 24 U/L (23-300); Magnesium 1.9 mg/dL (1.6-2.3); Potassium 3.8 mmol/L (3.4-5.1); Sodium 138 mmol/L (137-145); Total Protein 5.8 g/dL (6.3-8.2)
[2019-08-08] MEDS: HEPARIN 5,000 UNIT/ML VIAL 5000 UNIT SUBCUT (05:36)
[2019-08-08 05:52] VITALS: BP 129/55; PULSE 83; RESP 16; TEMP 36.9; O2SAT 95
[2019-08-08 08:00] VITALS: BP 125/67; PULSE 83; RESP 16; TEMP 36.6; O2SAT 98
[2019-08-08 08:01] LABS: Amylase < 30 U/L (30-110)
--- NOTE | 2019-08-08 08:49 | P.DS_ITS ---
History of Present Illness History of Present Illness Chief complaint: ABD pain Narrative: This is a 48 yo woman with who came into the ER this morning with complaint of severe epigastric pain radiating to her left shoulder that began this morning around 4 or 5:00 a.m.. She can't pinpoint a particular etiology of the pain, and she denies any associated jaundice, nausea, vomiting, fevers. She came into the ER and had labs drawn, and the right upper quadrant ultrasound which showed gallstones in the gallbladder, and no abnormal bile ducts. In the ER her lipase was 1200, but her other labs were normal. No white blood cell count and no elevated bilirubin. She says she came into the ER because she thought she was having a heart attack. She has had 2 heart attacks in the past. One was 5 years ago, and 1 was 8 years ago. She says she has angioplasty for both of those, and was on Plavix for 6 months, but was taken off of it and is not on any blood thinners at this time. In the ER her troponin and EKG were normal. She had a gastric bypass in October of 2017, and has lost 100 lb since then. ROS: Narrative: GENERAL: Denies chills, fatigue, malaise, fever, sweats, travel HEENT: Denies sinus pain, ear pain, sore throat, difficulty swallowing, neck pain RESPIRATORY: Denies dyspnea, cough, wheezing, hemoptysis, sputum. CARDIOVASCULAR: Denies chest pain, palpitations, orthopnea, edema GASTROINTESTINAL: See HPI : Denies dysuria, frequency, incontinence, hematuria, urinary retention, flank pain. MUSCULOSKELETAL: Denies weakness, joint pain, or bony pain SKIN: No rash, no erythema, no pruritus NEUROLOGIC: Denies weakness, dizziness, headache, numbness, change in speech, confusion PSYCHIATRIC: No concerning psychosocial issues. PE: GENERAL: Alert, comfortable, nontoxic, morbidly obese HENT: Normocephalic, atraumatic. Hearing intact. Oral mucosa is pink and moist. EYES: Conjunctiva pink, sclera white, no periorbital swelling. CARDIOVASCULAR: Regular rate. No pedal edema. RESPIRATORY: Non-tachypneic, breathing comfortably on room air. GASTROINTESTINAL: Abdomen soft and non-distended, tender to palpation in epigastrium and bilateral upper quadrants GENITALURINARY: No flank tenderness. MUSCULOSKELETAL: Equal tone and mass bilaterally. SKIN: Warm, dry, soft, appropriate color for ethnicity. No other lesions, rashes, or wounds. NEURO: Alert and Oriented X 3. No gross sensory deficits, or cognitive issues. PSYCH: Appropriate affect and mood. Discharge Providers Provider Date of admission: 08/06/19 09:28 Discharge Date: 08/08/19 Primary care physician: Jeniffer Leary DO Discharge provider: Paula Sunshine MD Summary Hospital Course Discharge Diagnosis: Acute gallstone pancreatitis, acute on chronic cholecystitis, cholelithiasis Hospital Course: The patient was admitted from the ER with a lipase over 1200, and a positive sonographic Cheung sign, with signs of cholecystitis on her right upper quadrant ultrasound.. She was treated with bowel rest, IV fluids, and antibiotics for her cholecystitis. Once her pancreatitis pain and lipase came down to normal, we took her to the operating room for laparoscopic cholecystectomy. She had some murky fluid around the subhepatic space and lateral gutter, which was suctioned out and sent for culture and amylase. Amylase was consistent with serum amylase, and therefore not suspicious for a GI perforation, but rather likely inflammatory fluid secondary to acute on chronic cholecystitis and acute pancreatitis. She is tolerating a diet on postop day 1, and feels much better than prior to her cholecystectomy. Her labs are consistent with appropriate postop expectations. White count is coming down, hemoglobin is appropriate, lipase is normal, and LFTs are normal. Status at Discharge Cognitive/behavioral status at discharge: at baseline, oriented Functional status at discharge: independent ambulation Overall status at discharge: patient is progressing back to baseline Time Spent with Patient Time spent: Greater than 30 minutes Exam Vital Signs (past 8 hours): - 08/08/19 05:52 08/08/19 08:00 Temperature 98.5 F 97.9 F Pulse Rate 83 83 Respiratory Rate 16 16 Blood Pressure 129/55 L 125/67 Pulse Oximetry 95 98 Oxygen Delivery Method Nasal Cannula Oxygen Flow Rate 0 Narrative Exam Narrative: GENERAL: Alert, comfortable, nontoxic, no distress HENT: Normocephalic, atraumatic. Hearing intact. Oral mucosa is pink and moist. EYES: Conjunctiva pink, sclera white, no periorbital swelling. CARDIOVASCULAR: Regular rate. No pedal edema. RESPIRATORY: Non-tachypneic, breathing comfortably on room air. GASTROINTESTINAL: Abdomen soft and non-distended, appropriate tenderness to palpation for postop day 1 GENITALURINARY: No flank tenderness. MUSCULOSKELETAL: Equal tone and mass bilaterally. SKIN: Warm, dry, soft, appropriate color for ethnicity. No other lesions, rashes, or wounds. NEURO: Alert and Oriented X 3. No gross sensory deficits, or cognitive issues. PSYCH: Appropriate affect and mood. Objective Labs Result Diagrams: 08/08/19 04:42 08/08/19 04:42 Labs: Laboratory Results - last 24 hr 08/07/19 08/08/19 08/08/19 17:00 04:42 04:42 WBC 10.8 RBC 3.34 L Hgb 9.5 L Hct 28.5 L MCV 85.3 MCH 28.3 MCHC 33.2 RDW 13.8 Plt Count 257 Neut % (Auto) 79.1 H Lymph % (Auto) 12.6 L Warrick % (Auto) 6.8 Eos % (Auto) 1.3 L Baso % (Auto) 0.2 Neut # (Auto) 8500 H Lymph # (Auto) 1400 Warrick # (Auto) 700 Eos # (Auto) 100 Baso # (Auto) 0 Sodium 138 Potassium 3.8 Chloride 107 Carbon Dioxide 25 BUN 19 H Creatinine 0.90 Estimated GFR > 60.0 BUN/Creatinine Ratio 21.1 Glucose 111 H Calcium 8.3 L Magnesium 1.9 Total Bilirubin 0.2 AST 28 ALT 22 Alkaline Phosphatase 57 Total Protein 5.8 L Albumin 2.9 L Globulin 2.9 Albumin/Globulin Ratio 1.0 Amylase Lipase 24 D Fluid Amylase < 30 08/08/19 04:42 WBC RBC Hgb Hct MCV MCH MCHC RDW Plt Count Neut % (Auto) Lymph % (Auto) Warrick % (Auto) Eos % (Auto) Baso % (Auto) Neut # (Auto) Lymph # (Auto) Warrick # (Auto) Eos # (Auto) Baso # (Auto) Sodium Potassium Chloride Carbon Dioxide BUN Creatinine Estimated GFR BUN/Creatinine Ratio Glucose Calcium Magnesium Total Bilirubin AST ALT Alkaline Phosphatase Total Protein Albumin Globulin Albumin/Globulin Ratio Amylase < 30 L Lipase Fluid Amylase Discharge Plan Discharge Plan Patient Disposition: Home Discharge orders & Medications Prescriptions: New oxycodone 5 mg tablet 5 mg PO Q4-6H PRN (Reason: post operative pain) Qty: 30 RF: 0 docusate sodium 100 mg capsule 100 mg PO BID Qty: 60 RF: 0 Continued Bariatric Multivitamins 45 mg iron- 800 mcg-120 mcg Capsule 1 cap PO DAILY RF: 0 Follow up/Referrals: Jeniffer Leary DO [Primary Care Provider] - Diet/Activity/Treatments Diet: Diet as Tolerated Activity: Avoid lifting more than 10 lb or straining for 4 weeks. Okay to return to work in 2 weeks, barring any complications. If you feel well enough to return to work in 1 week, and your off of narcotic pain medications, you may return to work in 1 week. Most people need 2 weeks prior to returning to full activity. When you return to work make sure you're not lifting more than 10 lb or straining her abdominal wall for a full 4 weeks after surgery. Skin/Wound/Dressing Care Report to your healthcare provider any signs of infection, such as:: chills, fever, night sweats, increased pain, unusual drainage and unusual redness Visit Report/Discharge Packet Instructions: DI for Cholecystectomy, DI for Laparoscopy, DI for Prescription Opioid Use, [facility]: Wound Care Discharge Data Primary Care Provider: Jeniffer Leary Attending Provider: Paula Sunshine Admit Date/Time: 08/06/19 09:28 Quality VTE Deep Vein Thrombosis/Pulmonary Embolism Present on Admission: No
[2019-08-08] MEDS: PANTOPRAZOLE 40 MG VIAL IV (09:21)
[2019-08-08] MEDS: OXYCODONE IR 5 MG TABLET PO (09:22)
--- NOTE | 2019-08-08 11:18 | PC.NURSE ---
Day shift: Left unit in WC to car driven by her spouse. Taken to that car by staff. Paperwork signed and all questions answered. Pt has all personal belongings. Pt has MD howard. Lap sites CDI. Medicated with 5mg oxycodone for car ride home and time to get Oxycodone script filled. Left unit at approx 1130.
--- NOTE | 2019-08-08 11:26 | CM.DANOTE ---
Addendum entered by Madeline Grande LPN 08/08/19 11:29: Pt is a 48 year old female who admitted to care of [facility] on 08/06 with c/o abdominal pain. Payer: [facility] Admission status: OBS: per UR BASHIR Betancourt PCP: Dr. Jordan Leary Determination of need for surgery was made by Dr. Sunshine yesterday 08/07 with pt agreement for same and she was taken to surgery for a Lap Cholecystectomy. This morning have noted pt and her ambulating in the halls. Dr. Sunshine has now deemed pt stable for d/c. Went to check in with pt. She and her are going over details of the d/c to home and will leave for home as soon as this is completed. Original Note: Discharge Planning/Care Management DCP: assessment: case received yesterday, EMR reviewed and discussed in Team Rounds. CM Discharge Assessment Start: 08/08/19 11:25 Freq: Status: Active Protocol: Document 08/08/19 11:25 ITV (Rec: 08/08/19 11:26 ITV [id number]) Discharge Planning Assessment Advance Directives? No History Provided By Medical Record Prior Living Arrangements Mobile home Household Members spouse Independent with ADL's Yes Is patient alert and oriented? Yes Discharge Plan Home Review Status In Process
--- NOTE | 2019-08-18 09:59 | PC.NURSE ---
Late entry: Adrián stop time 08/07 [id number]
== END 2019-08-08 11:45 | disposition home or self-care (01) ==
LOC: ED 09:16 → AC 10:22
PROVIDERS: Admitting Provider Surgery; Emergency Provider Emergency Medicine; Family Provider Family Medicine; PCP Family Medicine; Referring Provider Emergency Medicine; Visit Provider Surgery
PROC: 0FT44ZZ Resection of Gallbladder, Percutaneous Endoscopic Approach (ICD-10-PCS; CPT 47562; principal; 2019-08-07 12:55)
DX: K80.12 Calculus of gallbladder with acute and chronic cholecystitis without obstruction (principal); R10.13 Epigastric pain; K85.10 Biliary acute pancreatitis without necrosis or infection; Z23 Encounter for immunization
CPT/HCPCS: 47562; 36415; 71045; 76705; 80053; 82150; 82550; 82962; 83690; 83735; 84484; 85025; 87070; 87075; 87077; 87205; 90471; 90656; 93005; 94760; 96361; 96365; 96366; 96367; 96372; 96375; 96376; 99219; 99284; 99285; G0378; C9113; J0696; J1100; J1170; J1644; J1885; J2250; J2405; J2704; J3010; Q2038

== ENCOUNTER → 2019-08-19 10:12 | Outpatient (CLI) | payer BC, SELFPAY ==
[2019-08-12 09:15] VITALS: BMI 37.8
[2019-08-19 11:08] LABS: Basophils Absolute Auto 200 /uL (0-100); Basophils Percent Auto 0.7 % (0-2); Eosinophils Absolute Auto 100 /uL (0-450); Eosinophils Percent Auto 0.4 % (2-4); Hematocrit 35.2 % (36-46); Hemoglobin 11.6 g/dL (12.0-16.0); Lymphocytes Absolute Auto 2700 /uL (1100-4500); Lymphocytes Percent Auto 11.4 % (25-40); Mean Corpuscular HGB Conc 32.9 % (30-36); Mean Corpuscular Hemoglobin 27.3 PG (26-34); Mean Corpuscular Volume 82.9 fL (80-100); Monocytes Absolute Auto 1200 /uL (0-900); Monocytes Percent Auto 5.1 % (3-14); Neutrophils Absolute Auto 19300 /uL (1500-7000); Neutrophils Percent Auto 82.4 % (50-75); Red Blood Cell Count 4.24 X10^6/uL (4.0-5.2); Red Cell Distribution Width 14.1 % (11.6-14.8); White Blood Cell Count 23.4 X10^3/uL (4.5-11.0)
[2019-08-19 11:10] LABS: Add Manual Diff / Slide Review SLIDE REVIEW; Platelet Count 637 X10^3/uL (150-400)
[2019-08-19 11:12] LABS: Alanine Aminotransferase 24 IU/L (<35); Albumin 4.2 g/dL (3.5-5.0); Albumin Globulin Ratio 1.1 (1.0-2.8); Alkaline Phosphatase 110 U/L (38-126); Aspartate Aminotransferase 22 IU/L (14-36); BUN Creatinine Ratio 18.9 (6-22); Bilirubin Total 0.5 mg/dL (0.2-1.3); Blood Urea Nitrogen 17 mg/dL (7-17); Calcium 9.7 mg/dL (8.4-10.2); Carbon Dioxide 25 mmol/L (22-32); Chloride 100 mmol/L (98-107); Estimated Glomerular Filt Rate > 60.0 mL/min (>60); Globulin 3.9 g/dL (1.7-4.1); Glucose 138 mg/dL (70-100); HEMOLYSIS < 15 (0-50); Lipase 133 U/L (23-300); Potassium 4.4 mmol/L (3.4-5.1); Sodium 137 mmol/L (137-145); Total Protein 8.1 g/dL (6.3-8.2)
[2019-08-19 11:33] LABS: Anisocytosis 1+; Platelet Estimate Increased on smear
== END ==
PROVIDERS: Family Provider Family Medicine; PCP Family Medicine; Referring Provider Surgery; Visit Provider Surgery
DX: R50.9 Fever, unspecified (principal); Z90.49 Acquired absence of other specified parts of digestive tract
CPT/HCPCS: 36415; 80053; 83690; 85025; 87040

== ENCOUNTER 2019-08-19 11:28 | Emergency (ER) | payer BC, SELFPAY ==
[2019-08-12 09:15] VITALS: BMI 37.8
[2019-08-19] VITALS (7 sets, daily range): BP systolic 112–153; BP diastolic 57–74; PULSE 88–119; RESP 16–24; TEMP 37.4–38.4; O2SAT 91–99; BMI 36.8
[2019-08-19] MEDS: SODIUM CHLORIDE 0.9% 1,000 ML 150 ML IV ×2 (12:13→15:59)
[2019-08-19] MEDS: ONDANSETRON 4 MG/2 ML INJ IV ×2 (12:13→16:06)
[2019-08-19] MEDS: HYDROMORPHONE 1 MG INJ IV ×3 (12:13→19:40)
[2019-08-19 12:54] LABS: Lactate (Lactic Acid) 0.8 mmol/L (0.7-2.1)
--- NOTE | 2019-08-19 13:07 | DI.CT.S_ITS ---
PROCEDURE: CT ABDOMEN PELVIS W CON INDICATIONS: severe abdominal pain, abnormal cells from washout TECHNIQUE: After the administration of intravenous contrast, 5 mm thick sections acquired from the diaphragm to the symphysis. 5 mm coronal and sagittal reformats were acquired. For radiation dose reduction, the following was used: automated exposure control, adjustment of mA and/or kV according to patient size. COMPARISON: [facility], CT, CT ABDOMEN W CON, 01/10/2018, 9:02. FINDINGS: Image quality: Excellent. ABDOMEN: Lung bases: Bibasilar scarring/atelectasis is seen. Heart size is normal. Trace pericardial effusion is noted. Solid organs: Liver is normal in size and enhancement. Gallbladder is surgically absent. Biliary system is non dilated. Pancreas enhances normally. Spleen is normal in size and enhancement. No adrenal nodules. Kidneys demonstrate normal size and enhancement, without hydronephrosis. Small left renal cortical cyst measures 1.2 cm in size is seen. Peritoneum and bowel: Patient is status post prior gastric bypass surgery. Significant wall thickening is noted involving gastric remnant and the proximal jejunal loops in epigastric region with wall edema and small amount of fluid. No discrete walled enhancing abscess collection is seen. Multiple pockets of free air is noted in right upper quadrant abdomen anterior to left hepatic lobe. No other area of abnormal bowel wall thickening. Appendix is visualized and is within normal limits. Nodes and vessels: Prominent mesenteric lymph nodes are seen in left upper quadrant and abdomen just lateral to midline and measures up to 2.1 x 1.6 cm in size and 1.1 x 1.4 cm in size. No gross retroperitoneal lymphadenopathy.. Aorta and inferior vena cava are normal in size. Mild to moderate atherosclerotic calcifications throughout abdominal aorta is seen. Miscellaneous: Supraumbilical hernia is seen containing fat only. PELVIS: Genitourinary: Bladder wall thickness is normal. Miscellaneous: No inguinal hernias or adenopathy. Bones: No suspicious bony lesions. No vertebral body compression fractures. IMPRESSION: 1. Extraluminal air pockets are noted in right upper quadrant abdomen anterior to the right lobe of liver and adjacent to gallbladder fossa. Finding could represent iatrogenic air from recent cholecystectomy. Perforated bowel loop cannot be entirely excluded. Suggest clinical correlation. 2. Prior gastric bypass surgery with markedly thickened gastric remnant and proximal small bowel loop in epigastric region. Significant walled edema and small amount of adjacent mesenteric fluid is seen concerning for infectious or inflammatory gastroenteritis. No discrete drainable abscess collection is noted at this time. No other area of abnormal bowel wall thickening. 3. Prominent lymph nodes seen in upper abdominal mesentery as above suggestive of reactive inflammatory lymphadenopathy. Dictated by: Teto Clancy M.D. on 08/19/2019 at 14:28 Approved by: Teto Clancy M.D. on 08/19/2019 at 15:03
--- NOTE | 2019-08-19 14:30 | ED.ABDPAIN ---
HPI - Abdominal Pain General Chief Complaint: Abdominal Pain Stated Complaint: surgery 2 weeks ago,pain still bad/white count up Time Seen by Provider: 08/19/19 11:34 Source: patient Mode of arrival: Wheelchair Limitations: no limitations History of Present Illness HPI narrative: 48-year-old female nonsmoker with recent laparoscopic surgery for gallstone pancreatitis presents after a visit to her general surgeon this morning. Patient states that for the past few days is not feeling well. She has pain in her epigastrium, and mid abdomen which is different than the pain that she had associated with her gallstone pancreatitis. She has left upper quadrant pain and cramping worsening with eating and drinking. She has some malaise and nausea but no active vomiting. During her surgery she had free fluid sent for culture which grew out Carol. The patient had a gastric bypass 2 years ago at the [facility]. She has had no change in bowel movements, diarrhea or urinary complaints such as dysuria, frequency or urgency MD complaint: abdominal pain Onset (ago): day(s) Pain Consistency: constant Location: LUQ and epigastric Severity: moderate Quality: cramping Radiation: none Relieving factors: nothing Exacerbating factors: movement Context: recent surgery/procedure Associated symptoms: nausea and vomiting Related Data Home Medications Medication Instructions Recorded Confirmed Bariatric Multivitamins 1 cap PO DAILY 08/06/19 08/19/19 Previous Rx's Medication Instructions Recorded docusate sodium 100 mg PO BID #60 cap 08/08/19 oxycodone 5 mg PO Q4-6H PRN #30 tab 08/08/19 fluconazole 200 mg tablet 200 mg PO DAILY #15 tab 08/19/19 Allergies Allergy/AdvReac Type Severity Reaction Status Date / Time chlorhexidine Allergy Mild rash Verified 08/19/19 11:37 Penicillins [PENICILLINS] Allergy Unknown rash Verified 08/19/19 11:37 Review of Systems Constitutional Constitutional: Denies chills, Reports fatigue, Denies fever(s), Denies frequent falls, Denies lethargy and Reports weakness Eyes Eyes: Denies change in vision, Denies eye discharge, Denies irritation and Denies loss of vision ENT Ears, Nose, Mouth, and Throat: Denies change in voice, Denies dizziness, Denies neck pain, Denies sore throat and Denies throat swelling Cardiovascular Cardiovascular: Denies chest pain, Denies irregular heart rhythm, Denies lightheadedness, Denies palpitations, Denies dyspnea, Denies dyspnea on exertion and Denies orthopnea Respiratory Respiratory: Denies cough, Denies dyspnea, Denies dyspnea on exertion and Denies wheezing Gastrointestinal Gastrointestinal: Reports abdominal pain, Denies change in bowel habits, Denies diarrhea and Reports nausea Genitourinary Genitourinary: Denies hematuria, Denies flank pain, Denies urinary incontinence and Denies urinary urgency Musculoskeletal Musculoskeletal: Denies back pain, Denies muscle weakness, Denies neck pain, Denies numbness and Denies tingling Integumentary/Breasts Skin/Breast: Denies pruritus, Denies erythema, Denies rash and Denies wounds Neurologic Neurologic: Denies behavioral changes, Denies confusion, Denies dizziness, Denies frequent falls, Denies loss of vision, Denies numbness, Denies tingling and Reports weakness Psychiatric Psychiatric: Denies anxiety, Denies behavioral changes, Denies confusion, Denies depression, Denies homicidal ideation and Denies suicidal ideation Endocrine Endocrine: Reports fatigue, Denies flushing and Denies palpitations Hematologic/Lymphatic Hematologic/Lymphatic: Denies easy bruising Allergic/Immunologic Allergic/Immunologic: Denies urticaria, Denies throat swelling and Denies wheezing Patient History Medical History (Updated 08/19/19 @ 19:25 by Matteo Donis DO) Angina, class II (Acute 04/18/14) Atherosclerosis of coronary artery (Chronic) Diabetes mellitus type 2 in obese (Chronic 03/22/13) Environmental allergies (Chronic 03/22/13) Gastroesophageal reflux disease (Chronic 03/22/13) Hypertension (Chronic) Hypertriglyceridemia (Chronic 03/22/13) Moderate tobacco use disorder, in sustained remission (Chronic 04/18/14) Obesity (BMI 30-39.9) (Chronic) Obstructive sleep apnea (Chronic) Vitamin D deficiency (Chronic 10/01/17) Surgical History (Updated 08/19/19 @ 15:42 by Matteo Donis DO) History of angioplasty History of laparoscopic cholecystectomy (Acute) S/P bariatric surgery (Chronic ~10/2017) Status post cardiac catheterization Status post delivery Status post hysterectomy Status post tubal ligation Family History Child Alcoholism Grandfather CAD (coronary artery disease) Grandmother Hypertension CVA (cerebral infarction) Alcoholism Mother Hypertension Diabetes mellitus Depression Alcoholism Social History household members: spouse Smoking Status: Former smoker Smoking Status: Former smoker alcohol intake frequency: holidays/special occasions only Substance Use Type: does not use Exam Narrative Exam Narrative: GENERAL: [40] year old patient appears stated age. Well-nourished, well-developed patient, in mild distress. HEAD: Atraumatic. Normocephalic. EYES: Pupils equal round and reactive. Extraocular motions intact. No scleral icterus. No injection or drainage. ENT: Nose without bleeding, purulent drainage. Throat without erythema, tonsillar hypertrophy or exudate. Airway patent. NECK: Trachea midline. Non tender CARDIOVASCULAR: Regular rate and rhythm without murmurs, gallops, or rubs. RESPIRATORY: Clear to auscultation. Breath sounds equal bilaterally. No wheezes, rales, or rhonchi. GASTROINTESTINAL: Abdomen soft, tender in the epigastrium and left upper quadrant, nondistended. Incisions clean, dry and intact EXTREMITIES: No edema or joint tenderness. BACK: Nontender without deformity or crepitance. No flank tenderness. NEURO: AOx3. SKIN: No rash or erythema of visible areas Initial Vital Signs Initial Vital Signs: Vital Signs Temperature 99.3 F 08/19/19 11:37 Pulse Rate 119 H 08/19/19 11:37 Respiratory Rate 16 08/19/19 11:37 Blood Pressure 134/74 08/19/19 11:37 Pulse Oximetry 98 08/19/19 11:37 Course Course Course Narrative: Patient's surgeon, Dr. Goetz called ahead to discuss this patient's history and her suspicions. We discussed the case again upon receipt of the CT scan and we sure the opinion that patient is best served being seen at bariatric center. Images pushed and transfer process initiated. Orders Ordered: ED Orders 08/19/19 12:30 Blood Culture Stat Lactate (Lactic Acid) Stat 08/19/19 13:07 CT abdomen pelvis w con Stat Sodium Chloride (Normal Saline 0.9%) 1,000 mls @ 150 mls/hr IV CONT SOCORRO Last Admin: 08/19/19 15:59 Dose: 150 mls/hr Documented by: Infusion: 08/19/19 15:59 Dose: 150 mls/hr Documented by: Admin: 08/19/19 12:13 Dose: 150 mls/hr Documented by: FANI Discontinued Medications Hydromorphone HCl (Dilaudid) 1 mg IV NOW ONE Stop: 08/19/19 11:53 Last Admin: 08/19/19 12:13 Dose: 1 mg Documented by: FANI Hydromorphone HCl (Dilaudid) 1 mg IV NOW ONE Stop: 08/19/19 15:59 Last Admin: 08/19/19 16:05 Dose: 1 mg Documented by: DONALD Fluconazole (Diflucan) 400 mg in 200 mls @ 100 mls/hr IV NOW ONE Stop: 08/19/19 17:12 Last Infusion: 08/19/19 18:05 Dose: 0 mls/hr Documented by: Admin: 08/19/19 16:00 Dose: 100 mls/hr Documented by: DONALD Levofloxacin (Levaquin) 750 mg in 150 mls @ 100 mls/hr IV NOW ONE Stop: 08/19/19 18:51 Last Admin: 08/19/19 18:06 Dose: 100 mls/hr Documented by: DONALD Metronidazole (Flagyl) 500 mg in 100 mls @ 100 mls/hr IV NOW ONE Stop: 08/19/19 18:44 Last Admin: 08/19/19 19:04 Dose: 100 mls/hr Documented by: DONALD Ondansetron HCl (Zofran) 4 mg IV NOW ONE Stop: 08/19/19 11:53 Last Admin: 08/19/19 12:13 Dose: 4 mg Documented by: FANI Ondansetron HCl (Zofran) 4 mg IV NOW ONE Stop: 08/19/19 15:59 Last Admin: 08/19/19 16:06 Dose: 4 mg Documented by: DONALD Pantoprazole Sodium (Protonix) 40 mg IV NOW ONE Stop: 08/19/19 17:46 Last Admin: 08/19/19 19:03 Dose: 40 mg Documented by: DONALD Consultations Consultation #1: [facility] called, Dr. Grover happy to accept. Recommends Levaquin/Flagyl, Protonix, pain control, NPO and fluids. Time: 16:27 Vital Signs Vital signs: Vital Signs - 8 hr 08/19/19 11:37 08/19/19 12:30 08/19/19 13:00 Temperature 99.3 F Pulse Rate 93 H 93 H Pulse Rate [Left] 119 H Respiratory Rate 16 20 22 Blood Pressure [Left Arm] 134/74 138/67 126/64 Pulse Oximetry 98 99 95 08/19/19 14:30 08/19/19 16:20 08/19/19 16:52 Temperature 101.1 F H Pulse Rate 94 H 96 H 94 H Pulse Rate [Left] Respiratory Rate 23 17 20 Blood Pressure [Left Arm] 153/64 H 132/57 L 112/59 L Pulse Oximetry 99 91 95 MDM - Abdominal Pain Lab Data Labs: Lab Results 08/19/19 Range/Units 12:30 Lactate 0.8 (0.7-2.1) mmol/L Point of care testing: Urine Dip Bedside Urine Glucose Negative Bedside Urine Bilirubin + 1 Bedside Urine Ketone - Negative Urine Specific [place] 1.015 Bedside Urine Occult Blood - Negative Bedside Urine pH 6 Bedside Urine Protein +/- 15 Bedside Urine Urobilinogen - Negative Bedside Urine Nitrite - Negative Bedside Urine Leukocytes - Negative Esterase Imaging Data CT scan - abdomen/pelvis: Radiologist's Impression: Chart Viewer Diagnostics DATE TYPE STATUS AUTHOR Hx 08/19/19 13:07 Teto Clancy 08/06/19 07:23 Yoni Brewster 08/06/19 07:23 Michael Dunn 01/10/18 08:48 Shawn Duncan 01/07/18 21:18 Mike Atkinson 01/07/18 20:49 Mike Atkinson 11/27/17 17:40 Alfred Ross 11/22/17 20:13 Melvin Sanches 11/22/17 20:13 Melvin Sanches 11/21/17 13:00 Leatha FonsecaMelia Giron 48, F1970 [facility] R08 162.56cm 97.522kg BMI: 36.9kg/m? Abdominal Pain Search Chart No Data to Display rash rash ONSET 03/22/13 03/22/13 03/22/13 03/22/13 ~10/201704/18/14 04/18/14 04/18/14 11/20/16 11/20/16 10/01/17 Today 16:52 Melia Doran 48 F [address] [address] [address] Scan Report Signed Patient: Melia Doran MMR#: [id number] : 1970Acct:[id number] Age/Sex: 48 / FDate of Service: 08/19/19 Loc: ED Accession Number: [id number] Procedure: CT abdomen pelvis w con Ordering Provider: Matteo Donis D.O. PROCEDURE: CT ABDOMEN PELVIS W CON INDICATIONS: severe abdominal pain, abnormal cells from washout TECHNIQUE: After the administration of intravenous contrast, 5 mm thick sections acquired from the diaphragm to the symphysis. 5 mm coronal and sagittal reformats were acquired. For radiation dose reduction, the following was used: automated exposure control, adjustment of mA and/or kV according to patient size. COMPARISON: [facility], CT, CT ABDOMEN W CON, 01/10/2018, 9:02. FINDINGS: Image quality: Excellent. ABDOMEN: Lung bases: Bibasilar scarring/atelectasis is seen. Heart size is normal. Trace pericardial effusion is noted. Solid organs: Liver is normal in size and enhancement. Gallbladder is surgically absent. Biliary system is non dilated. Pancreas enhances normally. Spleen is normal in size and enhancement. No adrenal nodules. Kidneys demonstrate normal size and enhancement, without hydronephrosis. Small left renal cortical cyst measures 1.2 cm in size is seen. Peritoneum and bowel: Patient is status post prior gastric bypass surgery. Significant wall thickening is noted involving gastric remnant and the proximal jejunal loops in epigastric region with wall edema and small amount of fluid. No discrete walled enhancing abscess collection is seen. Multiple pockets of free air is noted in right upper quadrant abdomen anterior to left hepatic lobe. No other area of abnormal bowel wall thickening. Appendix is visualized and is within normal limits. Nodes and vessels: Prominent mesenteric lymph nodes are seen in left upper quadrant and abdomen just lateral to midline and measures up to 2.1 x 1.6 cm in size and 1.1 x 1.4 cm in size. No gross retroperitoneal lymphadenopathy.. Aorta and inferior vena cava are normal in size. Mild to moderate atherosclerotic calcifications throughout abdominal aorta is seen. Miscellaneous: Supraumbilical hernia is seen containing fat only. PELVIS: Genitourinary: Bladder wall thickness is normal. Miscellaneous: No inguinal hernias or adenopathy. Bones: No suspicious bony lesions. No vertebral body compression fractures. IMPRESSION: 1. Extraluminal air pockets are noted in right upper quadrant abdomen anterior to the right lobe of liver and adjacent to gallbladder fossa. Finding could represent iatrogenic air from recent cholecystectomy. Perforated bowel loop cannot be entirely excluded. Suggest clinical correlation. 2. Prior gastric bypass surgery with markedly thickened gastric remnant and proximal small bowel loop in epigastric region. Significant walled edema and small amount of adjacent mesenteric fluid is seen concerning for infectious or inflammatory gastroenteritis. No discrete drainable abscess collection is noted at this time. No other area of abnormal bowel wall thickening. 3. Prominent lymph nodes seen in upper abdominal mesentery as above suggestive of reactive inflammatory lymphadenopathy. Dictated by: Teto Clancy M.D. on 08/19/2019 at 14:28 Approved by: Teto Clancy M.D. on 08/19/2019 at 15:03 [facility] Narrative Medical decision making narrative: 48-year-old female with recent laparoscopic cholecystectomy presents at the request of her surgeon for elevated white count, increasing epigastric pain, fluid culture noting Carol. After receipt of CT there is suggestion that her symptoms are likely secondary to problems with a prior bariatric surgery. Patient transferred to the [facility] for continuity of care and access to bariatric specialist. Critical Care Time Critical Care Time Critical Care Time: Yes Total Critical Care Time: 35 Attestation: The high probability of a clinically significant, sudden or life threatening deterioration of the [GI] system(s) required my full and direct attention, intervention and personal management. The aggregate critical care time was [35] minutes. This time is in addition to time spent performing reported procedures but includes the following: [x] Data Review and interpretation [x] Patient assessment and monitoring of vital signs [x] Documentation [x] Medication orders and management Discharge Plan Departure Patient Disposition: [facility] Clinical Impression: Abdominal pain, Leukocytosis Prescriptions: No Action fluconazole 200 mg tablet 200 mg PO DAILY Qty: 15 RF: 0 Bariatric Multivitamins 45 mg iron- 800 mcg-120 mcg Capsule 1 cap PO DAILY RF: 0 oxycodone 5 mg tablet 5 mg PO Q4-6H PRN (Reason: post operative pain) Qty: 30 RF: 0 docusate sodium 100 mg capsule 100 mg PO BID Qty: 60 RF: 0 Referrals: Jeniffer Leary DO [Primary Care Provider] -
[2019-08-19] MEDS: FLUCONAZOLE 400 MG/200 ML PIGGYBACK 100 MG IV (16:00)
[2019-08-19] MEDS: levoFLOXacin 750 MG/150 ML PIGGYBACK 100 MG IV (18:06)
[2019-08-19] MEDS: PANTOPRAZOLE 40 MG VIAL IV (19:03)
[2019-08-19] MEDS: metroNIDAZOLE 500 MG/100 ML PIGGYBACK 100 MG IV (19:04)
== END 2019-08-19 19:55 | disposition short-term general hospital (02) ==
PROVIDERS: Emergency Provider Emergency Medicine; Family Provider Family Medicine; PCP Family Medicine
DX: R10.9 Unspecified abdominal pain (principal); D72.829 Elevated white blood cell count, unspecified; Z90.49 Acquired absence of other specified parts of digestive tract
CPT/HCPCS: 36415; 74177; 80053; 81003; 83605; 83690; 85025; 87040; 96361; 96365; 96366; 96367; 96368; 96375; 96376; 99284; 99291; C9113; J1170; J1450; J1956; J2405; Q9967

== ENCOUNTER → 2019-12-27 11:38 | Outpatient (CLI) | payer BC, SELFPAY ==
[2019-08-12 09:15] VITALS: BMI 37.8
[2019-12-27 14:25] LABS: BUN Creatinine Ratio 22.8 (6-22); Blood Urea Nitrogen 21 mg/dL (7-17); Calcium 9.7 mg/dL (8.4-10.2); Carbon Dioxide 30 mmol/L (22-32); Chloride 105 mmol/L (98-107); Estimated Glomerular Filt Rate > 60.0 mL/min (>60); Glucose 109 mg/dL (70-100); HEMOLYSIS < 15 (0-50); Magnesium 2.3 mg/dL (1.6-2.3); Potassium 4.6 mmol/L (3.4-5.1); Sodium 139 mmol/L (137-145)
== END ==
PROVIDERS: Family Provider Family Medicine; PCP Family Medicine; Referring Provider Family Medicine; Visit Provider Family Medicine
DX: I10 Essential (primary) hypertension (principal)
CPT/HCPCS: 36415; 80048; 83735

== ENCOUNTER → 2020-05-24 11:08 | Outpatient (CLI) | payer BC, SELFPAY ==
[2019-08-12 09:15] VITALS: BMI 37.8
[2020-05-24 12:58] LABS: Hemoglobin A1C% w Est Avg Glu 6.4 % (4.0-6.0)
[2020-05-24 13:14] LABS: BUN Creatinine Ratio 27.2 (6-22); Blood Urea Nitrogen 25 mg/dL (7-17); Calcium 9.5 mg/dL (8.4-10.2); Carbon Dioxide 27 mmol/L (22-32); Chloride 107 mmol/L (98-107); Estimated Glomerular Filt Rate > 60.0 mL/min (>60); Glucose 83 mg/dL (70-100); HEMOLYSIS < 15 (0-50); Potassium 4.3 mmol/L (3.4-5.1); Sodium 139 mmol/L (137-145)
[2020-05-24 13:38] LABS: Free T3, Triiodothyronine Free 3.23 pg/mL (2.77-5.27); Free T4, Direct Thyroxine 0.92 ng/dL (0.78-2.19)
[2020-05-24 13:51] LABS: Thyroid Stimulating Hormone 0.709 uIU/mL (0.47-4.68)
== END ==
PROVIDERS: Family Provider Family Medicine; PCP Family Medicine; Referring Provider Family Medicine; Visit Provider Family Medicine
DX: E66.9 Obesity, unspecified (principal); I10 Essential (primary) hypertension; E11.69 Type 2 diabetes mellitus with other specified complication; Z98.84 Bariatric surgery status
CPT/HCPCS: 36415; 80048; 83036; 84439; 84443; 84481

== ENCOUNTER 2025-03-04 21:02 | Emergency (ER) | payer SELFPAY ==
[2019-08-12 09:15] VITALS: BMI 37.8
[2025-03-04 21:24] VITALS: BP 203/93; PULSE 134; RESP 18; TEMP 37.4; O2SAT 100; BMI 42.7
--- NOTE | 2025-03-04 21:32 | EKG_ITS ---
[place] [id number] [place] [id number] Test Date: 2025-03-04 Pat Name: Melia Doran Department: Room: Gender: Female Broker Associate: MILTON : 1970 Requested By: Order Number: [id number] Reading MD: Bladimir Osei Measurements Intervals [place] Rate: 128 P: 35 AR: 80 QRS: 3 QRSD: 74 T: 18 QT: 322 QTc: 470 Interpretive Statements Sinus tachycardia with short AR Minimal voltage criteria for LVH, may be normal variant ( R in aVL ) Nonspecific ST abnormality Electronically Signed On 03-07-2025 16:53:42 PDT by Bladimir Osei
--- NOTE | 2025-03-04 21:33 | DI.RAD.S_ITS ---
PROCEDURE: XR CHEST 1V INDICATIONS: Chest Pain TECHNIQUE: One view of the chest was acquired. COMPARISON: [facility], CR, XR CHEST 1V, 08/06/2019, 7:27. FINDINGS: Surgical changes and devices: None. Lungs and pleura: Lungs are clear. No pleural effusions or pneumothorax. Mediastinum: Mediastinal contours appear normal. Heart size is normal. Bones and chest wall: No suspicious bony lesions. Overlying soft tissues appear unremarkable. IMPRESSION: No acute cardiopulmonary abnormality is seen. Dictated by: Edgardo Diaz M.D. on 03/04/2025 at 22:16 Approved by: Edgardo Diaz M.D. on 03/04/2025 at 22:16
[2025-03-04] MEDS: ASPIRIN 81 MG CHEW TAB 324 MG PO (21:46)
[2025-03-04 22:37] LABS: Add Manual Diff / Slide Review NO; INR 0.9 (0.9-1.3); Lymphocytes Absolute Auto 3000 /uL (1100-4500); Mean Corpuscular HGB Conc 30.2 % (30-36); Mean Corpuscular Hemoglobin 18.5 PG (26-34); Mean Corpuscular Volume 61.2 fL (80-100); Platelet Count 349 X10^3/uL (150-400); Prothrombin Time 10.6 SECONDS (9.4-12.5)
[2025-03-04 22:38] LABS: Hematocrit 15.8 % (36-46); Hemoglobin 4.8 g/dL (12.0-16.0)
[2025-03-04 22:40] LABS: PTT Partial Thromboplastin Tim 21 SECONDS (25.1-36.5)
[2025-03-04 22:45] VITALS: PULSE 139
[2025-03-04 22:46] VITALS: BP 199/81; PULSE 128; RESP 10; O2SAT 100
[2025-03-04 22:47] LABS: Alanine Aminotransferase 21 IU/L (<35); Albumin 3.7 g/dL (3.5-5.0); Albumin Globulin Ratio 1.5 (1.0-2.8); Alkaline Phosphatase 88 U/L (38-126); Blood Urea Nitrogen 22 mg/dL (7-17); Calcium 8.8 mg/dL (8.4-10.2); Carbon Dioxide 21 mmol/L (22-32); Chloride 104 mmol/L (98-107); Creatine Kinase 30 U/L (30-135); Estimated Glomerular Filt Rate > 60 mL/min (>60); Globulin 2.5 g/dL (1.7-4.1); Glucose 269 mg/dL (70-99); HEMOLYSIS < 15 (0-50); Lipase 273 U/L (23-300); Magnesium 2.0 mg/dL (1.6-2.3); Potassium 4.0 mmol/L (3.4-5.1); Sodium 135 mmol/L (137-145); Total Protein 6.2 g/dL (6.3-8.2)
[2025-03-04 22:59] LABS: NT-proBNP (BNP-Adult 18+) 635 pg/mL (<125)
[2025-03-04 23:00] VITALS: BP 151/68; PULSE 100; RESP 19; O2SAT 99
[2025-03-04 23:04] LABS: Troponin I 0.176 ng/mL (0.01-0.034)
--- NOTE | 2025-03-04 23:07 | PC.NURSE ---
Pt reports dark red rectal bleeding yesterday. Normal stool today.
--- NOTE | 2025-03-04 23:12 | ED.CHESTPAIN ---
HPI - Chest Pain <Talya Rodríguez, DO - Last Filed: 03/09/25 18:58> General Chief Complaint: Chest Pain Stated Complaint: chestpain Time Seen by Provider: 03/04/25 21:38 Source: patient, RN notes reviewed and old records reviewed Mode of arrival: Ambulatory Limitations: no limitations Limitations: no limitations History of Present Illness HPI narrative: 54-year-old female history of gastric bypass, on omeprazole has had prior myocardial infarction never had cardiac stenting used to be on aspirin and medications for hypertension and dyslipidemia but no longer takes these. Patient presents with complaint of increased fatigue, lightheadedness, near syncope, chest discomfort as well as increased shortness of breath with exertion. Patient notes had rectal bleeding yesterday she described it as a dark red but have progressed to a little bit of blackish today. Patient states she has had episodes awhile ago but nothing recently or that she has appreciated regularly. Started about 4:40 a.m. was liquids uses no clots did have some clots later in the afternoon. She has noted some nausea no vomiting. No swelling in her extremities. She has not had any issues reported with the bleeding. She has a history of gastric bypass, hysterectomy, cholecystectomy and . States only medications currently are omeprazole, Benadryl and melatonin. Used to be on antihypertensive and a medication for dyslipidemia but stopped because she lost her insurance. Was on aspirin has been taking intermittently. No known drug allergies. No tobacco, occasional alcohol, no recreational drugs. Was following with Dr. Charles for Cardiology. Used to have a primary care physician but no longer. Related Data Home Medications ?Medication ?Instructions ?Recorded ?Confirmed [id number] 45 mg-folic 1 cap PO DAILY 08/06/19 08/19/19 acid 800 mcg-vit K 120 mcg capsule (Bariatric Multivitamins) Held on 01/05/20. Instructions: surgery ondansetron HCl 4 mg tablet 4 mg PO Q8H PRN nausea and vomiting 01/05/20 01/05/20 naltrexone 50 mg tablet 25 mg PO DAILY 08/18/20 08/18/20 Previous Rx's ?Medication ?Instructions ?Recorded docusate sodium 100 mg capsule 100 mg PO BID prevent constipation 08/08/19 from pain meds #60 caps diazepam 2 mg tablet See Rx Instructions PO .COMPLEX 06/05/20 PRN muscle spasm #4 tabs omeprazole 20 mg capsule,delayed 20 mg PO DAILY #90 caps 12/29/19 release bupropion HCl 75 mg tablet See Rx Instructions .Route 02/07/21 .COMPLEX #120 tabs amlodipine 5 mg tablet See Rx Instructions .Route 05/29/21 .COMPLEX #90 tabs lisinopril 20 See Rx Instructions .Route 06/04/21 mg-hydrochlorothiazide 25 mg tablet .COMPLEX #90 tabs Allergies Allergy/AdvReac Type Severity Reaction Status Date / Time chlorhexidine Allergy Mild rash Verified 08/19/19 11:37 Penicillins (PENICILLINS) Allergy Unknown rash Verified 08/19/19 11:37 Review of Systems <Talya Rodríguez DO - Last Filed: 03/09/25 18:58> Review of Systems ROS Unobtainable: All systems reviewed & are unremarkable except as noted in HPI and below Patient History <Talya Rodríguez DO - Last Filed: 03/09/25 18:58> Medical History Perforated ulcer Gastrogastric fistula (~12/13/19) Acute gallstone pancreatitis Obstructive sleep apnea Diabetes mellitus type 2 in obese (03/22/13) Environmental allergies (03/22/13) Gastroesophageal reflux disease (03/22/13) Hypertriglyceridemia (03/22/13) Hypertension Obesity (BMI 30-39.9) Vitamin D deficiency (10/01/17) Moderate tobacco use disorder, in sustained remission (04/18/14) Angina, class II (04/18/14) Atherosclerosis of coronary artery Surgical History History of laparoscopic cholecystectomy Status post cholecystectomy S/P bariatric surgery (~10/2017) History of angioplasty Status post delivery Status post tubal ligation Status post hysterectomy Status post cardiac catheterization Family History Child Alcoholism Grandfather CAD (coronary artery disease) Grandmother Hypertension CVA (cerebral infarction) Alcoholism Mother Hypertension Diabetes mellitus Depression Alcoholism Social History household members: spouse Smoking Status: Former smoker Smoking Status: Former smoker alcohol intake frequency: holidays/special occasions only Exam <Talya Rodríguez DO - Last Filed: 03/09/25 18:58> Narrative Exam Narrative: GENERAL: Alert and oriented x three, female in mild distress. Appears pale HEENT: Head normocephalic, atraumatic, EOMI, pupils reactive, face symmetric, moist mucous membranes NECK: Supple, full range of motion CARDIOVASCULAR: Tachycardic but regular rate and rhythm without murmurs, rubs or gallops. No JVD or edema. RESPIRATORY: Breath sounds equal bilaterally, no wheezes rales or rhonchi. No accessory use or tachypnea ABDOMEN: Soft, nontender. Normoactive bowel sounds all 4 quadrants. No guarding or rebound, rigidity, no mass : No CVA tenderness EXTREMITIES: Normal range of motion, no clubbing or edema. Neurovascularly intact NEUROLOGICAL: Cranial nerves II through XII grossly intact. Moving all extremities SKIN: Warm, dry, no petechiae, no rashes or lesions. Initial Vital Signs Initial Vital Signs: Vital Signs Temperature 99.3 F 03/04/25 21:24 Pulse Rate 134 H 03/04/25 21:24 Respiratory Rate 18 03/04/25 21:24 Blood Pressure 203/93 H 03/04/25 21:24 Pulse Oximetry 100 03/04/25 21:24 Oxygen Delivery Method Room Air 03/04/25 21:24 <Evangelist Solorzano DO - Last Filed: 03/05/25 22:11> Initial Vital Signs Initial Vital Signs: Vital Signs Temperature 99.3 F 03/04/25 21:24 Pulse Rate 134 H 03/04/25 21:24 Respiratory Rate 18 03/04/25 21:24 Blood Pressure 203/93 H 03/04/25 21:24 Pulse Oximetry 100 03/04/25 21:24 Oxygen Delivery Method Room Air 03/04/25 21:24 Course <Talya Rodríguez DO - Last Filed: 03/09/25 18:58> Orders Ordered: Discontinued Medications Aspirin (Aspirin 81 Mg Chew Tab) 324 mg PO NOW ONE Stop: 03/04/25 21:34 Last Admin: 03/04/25 21:46 Dose: 324 mg Documented By: KH Sodium Chloride (Normal Saline 0.9%) 1,000 mls @ 1,000 mls/hr IV BOLUS ONE Stop: 03/04/25 22:38 Last Admin: 03/04/25 23:32 Dose: Not Given Documented By: YAMIL Acetaminophen (Ofirmev) 1,000 mg in 100 mls @ 400 mls/hr IV NOW ONE Stop: 03/05/25 21:58 Pantoprazole Sodium (Pantoprazole 40 Mg Vial) 80 mg IV NOW ONE Stop: 03/04/25 23:33 Last Admin: 03/04/25 23:38 Dose: 80 mg Documented By: YAMIL Vital Signs Vital signs: Vital Signs - 8 hr 03/05/25 14:00 03/05/25 14:00 03/05/25 14:30 Pulse Rate 68 78 Respiratory Rate 20 Blood Pressure 160/72 H Pulse Oximetry 99 98 Oxygen Delivery Method 03/05/25 15:00 03/05/25 15:30 03/05/25 16:00 Pulse Rate 71 79 87 Respiratory Rate 28 H 26 H 37 H Blood Pressure Pulse Oximetry 98 99 98 Oxygen Delivery Method 03/05/25 16:01 03/05/25 16:01 03/05/25 16:05 Pulse Rate 74 Respiratory Rate 31 H Blood Pressure 216/94 H 203/92 H Pulse Oximetry 98 Oxygen Delivery Method 03/05/25 16:05 03/05/25 16:11 03/05/25 16:11 Pulse Rate 83 81 Respiratory Rate 23 21 Blood Pressure 175/85 H Pulse Oximetry 99 100 Oxygen Delivery Method 03/05/25 16:30 03/05/25 17:00 Pulse Rate 67 78 Respiratory Rate 29 H 23 Blood Pressure Pulse Oximetry 99 96 Oxygen Delivery Method Room Air <Evangelist Solorzano DO - Last Filed: 03/05/25 22:11> Orders Ordered: Discontinued Medications Aspirin (Aspirin 81 Mg Chew Tab) 324 mg PO NOW ONE Stop: 03/04/25 21:34 Last Admin: 03/04/25 21:46 Dose: 324 mg Documented By: YARON Sodium Chloride (Normal Saline 0.9%) 1,000 mls @ 1,000 mls/hr IV BOLUS ONE Stop: 03/04/25 22:38 Last Admin: 03/04/25 23:32 Dose: Not Given Documented By: YAMIL Acetaminophen (Ofirmev) 1,000 mg in 100 mls @ 400 mls/hr IV NOW ONE Stop: 03/05/25 21:58 Pantoprazole Sodium (Pantoprazole 40 Mg Vial) 80 mg IV NOW ONE Stop: 03/04/25 23:33 Last Admin: 03/04/25 23:38 Dose: 80 mg Documented By: YAMIL Vital Signs Vital signs: Vital Signs - 8 hr 03/05/25 14:00 03/05/25 14:00 03/05/25 14:30 Pulse Rate 68 78 Respiratory Rate 20 Blood Pressure 160/72 H Pulse Oximetry 99 98 Oxygen Delivery Method 03/05/25 15:00 03/05/25 15:30 03/05/25 16:00 Pulse Rate 71 79 87 Respiratory Rate 28 H 26 H 37 H Blood Pressure Pulse Oximetry 98 99 98 Oxygen Delivery Method 03/05/25 16:01 03/05/25 16:01 03/05/25 16:05 Pulse Rate 74 Respiratory Rate 31 H Blood Pressure 216/94 H 203/92 H Pulse Oximetry 98 Oxygen Delivery Method 03/05/25 16:05 03/05/25 16:11 03/05/25 16:11 Pulse Rate 83 81 Respiratory Rate 23 21 Blood Pressure 175/85 H Pulse Oximetry 99 100 Oxygen Delivery Method 03/05/25 16:30 03/05/25 17:00 Pulse Rate 67 78 Respiratory Rate 29 H 23 Blood Pressure Pulse Oximetry 99 96 Oxygen Delivery Method Room Air MDM - Chest Pain <Talya Rodríguez, - Last Filed: 03/09/25 18:58> Lab Data 03/05/25 16:13 03/04/25 22:20 Labs: Lab Results 03/04/25 03/04/25 03/04/25 Range/Units 22:20 22:20 22:55 WBC 10.1 (4.5-11.0) X10^3/uL RBC 2.58 L (4.0-5.2) X10^6/uL Hgb 4.8 L* (12.0-16.0) g/dL Hct 15.8 L* (36-46) % MCV 61.2 L (80-100) fL MCH 18.5 L (26-34) PG MCHC 30.2 (30-36) % RDW 20.6 H (11.6-14.8) % Plt Count 349 (150-400) X10^3/uL Neut % (Auto) 62.8 (50-75) % Lymph % (Auto) 30.0 (25-40) % [place] % (Auto) 4.7 (3-14) % Eos % (Auto) 1.9 L (2-4) % Baso % (Auto) 0.6 (0-2) % Neut # (Auto) 6300 (1710-8799) /uL Lymph # (Auto) 3000 (2930-0039) /uL [place] # (Auto) 500 (0-900) /uL Eos # (Auto) 200 (0-450) /uL Baso # (Auto) 100 (0-100) /uL Platelet Estimate Adequate on smear RBC Morphology See below Hypochromasia 2+ H Anisocytosis 2+ H Microcytosis 2+ H PT 10.6 (9.4-12.5) SECONDS INR 0.9 (0.9-1.3) APTT 21 L (25.1-36.5) SECONDS D-Dimer 255 Cancelled (<500) ng/ml Sodium 135 L (137-145) mmol/L Potassium 4.0 (3.4-5.1) mmol/L Chloride 104 (98-107) mmol/L Carbon Dioxide 21 L (22-32) mmol/L BUN 22 H (7-17) mg/dL Creatinine 0.90 (0.52-1.04) mg/dL Estimated GFR > 60 (>60) mL/min BUN/Creatinine Ratio 24.4 H (6-22) Glucose 269 H (70-99) mg/dL Calcium 8.8 (8.4-10.2) mg/dL Magnesium 2.0 (1.6-2.3) mg/dL Total Bilirubin 0.2 (0.2-1.3) mg/dL AST 25 (14-36) IU/L ALT 21 (<35) IU/L Alkaline Phosphatase 88 (38-126) U/L Total Creatine Kinase 30 (30-135) U/L Troponin I 0.176 H* (0.01-0.034) ng/mL NT-Pro-B Natriuret Pep 635 H (<125) pg/mL Total Protein 6.2 L (6.3-8.2) g/dL Albumin 3.7 (3.5-5.0) g/dL Globulin 2.5 (1.7-4.1) g/dL Albumin/Globulin Ratio 1.5 (1.0-2.8) Lipase 273 (23-300) U/L Blood Type A Positive Antibody Screen Negative Crossmatch See Detail 03/05/25 03/05/25 03/05/25 Range/Units 00:56 05:44 11:50 WBC (4.5-11.0) X10^3/uL RBC (4.0-5.2) X10^6/uL Hgb 6.6 L* 7.0 L (12.0-16.0) g/dL Hct 20.7 L* 21.8 L (36-46) % MCV (80-100) fL MCH (26-34) PG MCHC (30-36) % RDW (11.6-14.8) % Plt Count (150-400) X10^3/uL Neut % (Auto) (50-75) % Lymph % (Auto) (25-40) % [place] % (Auto) (3-14) % Eos % (Auto) (2-4) % Baso % (Auto) (0-2) % Neut # (Auto) (3874-2144) /uL Lymph # (Auto) (5351-5918) /uL [place] # (Auto) (0-900) /uL Eos # (Auto) (0-450) /uL Baso # (Auto) (0-100) /uL Platelet Estimate RBC Morphology Hypochromasia Anisocytosis Microcytosis PT (9.4-12.5) SECONDS INR (0.9-1.3) APTT (25.1-36.5) SECONDS D-Dimer (<500) ng/ml Sodium (137-145) mmol/L Potassium (3.4-5.1) mmol/L Chloride (98-107) mmol/L Carbon Dioxide (22-32) mmol/L BUN (7-17) mg/dL Creatinine (0.52-1.04) mg/dL Estimated GFR (>60) mL/min BUN/Creatinine Ratio (6-22) Glucose (70-99) mg/dL Calcium (8.4-10.2) mg/dL Magnesium (1.6-2.3) mg/dL Total Bilirubin (0.2-1.3) mg/dL AST (14-36) IU/L ALT (<35) IU/L Alkaline Phosphatase (38-126) U/L Total Creatine Kinase (30-135) U/L Troponin I 0.194 H* (0.01-0.034) ng/mL NT-Pro-B Natriuret Pep (<125) pg/mL Total Protein (6.3-8.2) g/dL Albumin (3.5-5.0) g/dL Globulin (1.7-4.1) g/dL Albumin/Globulin Ratio (1.0-2.8) Lipase (23-300) U/L Blood Type Antibody Screen Crossmatch 03/05/25 Range/Units 16:13 WBC (4.5-11.0) X10^3/uL RBC (4.0-5.2) X10^6/uL Hgb 7.6 L (12.0-16.0) g/dL Hct 23.4 L (36-46) % MCV (80-100) fL MCH (26-34) PG MCHC (30-36) % RDW (11.6-14.8) % Plt Count (150-400) X10^3/uL Neut % (Auto) (50-75) % Lymph % (Auto) (25-40) % [place] % (Auto) (3-14) % Eos % (Auto) (2-4) % Baso % (Auto) (0-2) % Neut # (Auto) (8771-3216) /uL Lymph # (Auto) (0188-8345) /uL [place] # (Auto) (0-900) /uL Eos # (Auto) (0-450) /uL Baso # (Auto) (0-100) /uL Platelet Estimate RBC Morphology Hypochromasia Anisocytosis Microcytosis PT (9.4-12.5) SECONDS INR (0.9-1.3) APTT (25.1-36.5) SECONDS D-Dimer (<500) ng/ml Sodium (137-145) mmol/L Potassium (3.4-5.1) mmol/L Chloride (98-107) mmol/L Carbon Dioxide (22-32) mmol/L BUN (7-17) mg/dL Creatinine (0.52-1.04) mg/dL Estimated GFR (>60) mL/min BUN/Creatinine Ratio (6-22) Glucose (70-99) mg/dL Calcium (8.4-10.2) mg/dL Magnesium (1.6-2.3) mg/dL Total Bilirubin (0.2-1.3) mg/dL AST (14-36) IU/L ALT (<35) IU/L Alkaline Phosphatase (38-126) U/L Total Creatine Kinase (30-135) U/L Troponin I 0.183 H* (0.01-0.034) ng/mL NT-Pro-B Natriuret Pep (<125) pg/mL Total Protein (6.3-8.2) g/dL Albumin (3.5-5.0) g/dL Globulin (1.7-4.1) g/dL Albumin/Globulin Ratio (1.0-2.8) Lipase (23-300) U/L Blood Type Antibody Screen Crossmatch MDM Narrative Medical decision making narrative: 54-year-old female who comes in tachycardic, hypertensive, afebrile O2 sat 100% with report of shortness of breath chest discomfort patient is found to have a hemoglobin of 4, she does have a positive troponin but suspect this maybe demand ischemia. Based on the level of her hemoglobin and recent rectal bleeding I would not start anticoagulation at this time. Patient was transfused 2 units. Patient had received aspirin for chest pain but that has prior to her labs resulting with a hemoglobin of 4 no other anticoagulants at this time. Labs show white count of 10 hemoglobin is 4.8 in 2020 she was 11.6, she is microcytic today with platelets of 349. INR is normal PTT is 21 D-dimer is 255. Chest x-ray shows no acute change EKG shows sinus tachycardia with short GA, rate of 128 GA 180 QRS is 74 QTC of 470, no acute ST-elevation or depression. Transfusing 2 units. Patient received aspirin based on NIO for chest pain in setting of hypertension and tachycardia prior to lab resuls, fluids and Protonix. Because of the patient's rectal bleeding history of gastric bypass along with a positive troponin which is suspected to be demand ischemia but patient does have a history of myocardial infarction although no current cardiac stents felt patient required transfer to have access to GI and Cardiology. Spoke with Ana Maria quinonez coordinator at 11:55 p.m. Spoke with cardiology, formerly [facility] for scope. Okay to hold of anticoagulation. tele. Spoke with Dr. Lew, hospitalist accepts at [facility] no bed assignment but we will call back. Agrees with the current plan. Plan for repeat h/h after PRBCs transfused. Improved to 6.6 for hemoglobin/20.7 hematocrit. Patient signed out to Dr. Floyd while awaiting bed assignment. <Evangelist Solorzano, DO - Last Filed: 03/05/25 22:11> Lab Data Labs: Lab Results 03/04/25 03/04/25 03/04/25 Range/Units 22:20 22:20 22:55 WBC 10.1 (4.5-11.0) X10^3/uL RBC 2.58 L (4.0-5.2) X10^6/uL Hgb 4.8 L* (12.0-16.0) g/dL Hct 15.8 L* (36-46) % MCV 61.2 L (80-100) fL MCH 18.5 L (26-34) PG MCHC 30.2 (30-36) % RDW 20.6 H (11.6-14.8) % Plt Count 349 (150-400) X10^3/uL Neut % (Auto) 62.8 (50-75) % Lymph % (Auto) 30.0 (25-40) % [place] % (Auto) 4.7 (3-14) % Eos % (Auto) 1.9 L (2-4) % Baso % (Auto) 0.6 (0-2) % Neut # (Auto) 6300 (2090-6831) /uL Lymph # (Auto) 3000 (8292-7407) /uL [place] # (Auto) 500 (0-900) /uL Eos # (Auto) 200 (0-450) /uL Baso # (Auto) 100 (0-100) /uL Platelet Estimate Adequate on smear RBC Morphology See below Hypochromasia 2+ H Anisocytosis 2+ H Microcytosis 2+ H PT 10.6 (9.4-12.5) SECONDS INR 0.9 (0.9-1.3) APTT 21 L (25.1-36.5) SECONDS D-Dimer 255 Cancelled (<500) ng/ml Sodium 135 L (137-145) mmol/L Potassium 4.0 (3.4-5.1) mmol/L Chloride 104 (98-107) mmol/L Carbon Dioxide 21 L (22-32) mmol/L BUN 22 H (7-17) mg/dL Creatinine 0.90 (0.52-1.04) mg/dL Estimated GFR > 60 (>60) mL/min BUN/Creatinine Ratio 24.4 H (6-22) Glucose 269 H (70-99) mg/dL Calcium 8.8 (8.4-10.2) mg/dL Magnesium 2.0 (1.6-2.3) mg/dL Total Bilirubin 0.2 (0.2-1.3) mg/dL AST 25 (14-36) IU/L ALT 21 (<35) IU/L Alkaline Phosphatase 88 (38-126) U/L Total Creatine Kinase 30 (30-135) U/L Troponin I 0.176 H* (0.01-0.034) ng/mL NT-Pro-B Natriuret Pep 635 H (<125) pg/mL Total Protein 6.2 L (6.3-8.2) g/dL Albumin 3.7 (3.5-5.0) g/dL Globulin 2.5 (1.7-4.1) g/dL Albumin/Globulin Ratio 1.5 (1.0-2.8) Lipase 273 (23-300) U/L Blood Type A Positive Antibody Screen Negative Crossmatch See Detail 03/05/25 03/05/25 03/05/25 Range/Units 00:56 05:44 11:50 WBC (4.5-11.0) X10^3/uL RBC (4.0-5.2) X10^6/uL Hgb 6.6 L* 7.0 L (12.0-16.0) g/dL Hct 20.7 L* 21.8 L (36-46) % MCV (80-100) fL MCH (26-34) PG MCHC (30-36) % RDW (11.6-14.8) % Plt Count (150-400) X10^3/uL Neut % (Auto) (50-75) % Lymph % (Auto) (25-40) % [place] % (Auto) (3-14) % Eos % (Auto) (2-4) % Baso % (Auto) (0-2) % Neut # (Auto) (6334-8285) /uL Lymph # (Auto) (6520-6715) /uL [place] # (Auto) (0-900) /uL Eos # (Auto) (0-450) /uL Baso # (Auto) (0-100) /uL Platelet Estimate RBC Morphology Hypochromasia Anisocytosis Microcytosis PT (9.4-12.5) SECONDS INR (0.9-1.3) APTT (25.1-36.5) SECONDS D-Dimer (<500) ng/ml Sodium (137-145) mmol/L Potassium (3.4-5.1) mmol/L Chloride (98-107) mmol/L Carbon Dioxide (22-32) mmol/L BUN (7-17) mg/dL Creatinine (0.52-1.04) mg/dL Estimated GFR (>60) mL/min BUN/Creatinine Ratio (6-22) Glucose (70-99) mg/dL Calcium (8.4-10.2) mg/dL Magnesium (1.6-2.3) mg/dL Total Bilirubin (0.2-1.3) mg/dL AST (14-36) IU/L ALT (<35) IU/L Alkaline Phosphatase (38-126) U/L Total Creatine Kinase (30-135) U/L Troponin I 0.194 H* (0.01-0.034) ng/mL NT-Pro-B Natriuret Pep (<125) pg/mL Total Protein (6.3-8.2) g/dL Albumin (3.5-5.0) g/dL Globulin (1.7-4.1) g/dL Albumin/Globulin Ratio (1.0-2.8) Lipase (23-300) U/L Blood Type Antibody Screen Crossmatch 03/05/25 Range/Units 16:13 WBC (4.5-11.0) X10^3/uL RBC (4.0-5.2) X10^6/uL Hgb 7.6 L (12.0-16.0) g/dL Hct 23.4 L (36-46) % MCV (80-100) fL MCH (26-34) PG MCHC (30-36) % RDW (11.6-14.8) % Plt Count (150-400) X10^3/uL Neut % (Auto) (50-75) % Lymph % (Auto) (25-40) % [place] % (Auto) (3-14) % Eos % (Auto) (2-4) % Baso % (Auto) (0-2) % Neut # (Auto) (1063-7092) /uL Lymph # (Auto) (5538-7085) /uL [place] # (Auto) (0-900) /uL Eos # (Auto) (0-450) /uL Baso # (Auto) (0-100) /uL Platelet Estimate RBC Morphology Hypochromasia Anisocytosis Microcytosis PT (9.4-12.5) SECONDS INR (0.9-1.3) APTT (25.1-36.5) SECONDS D-Dimer (<500) ng/ml Sodium (137-145) mmol/L Potassium (3.4-5.1) mmol/L Chloride (98-107) mmol/L Carbon Dioxide (22-32) mmol/L BUN (7-17) mg/dL Creatinine (0.52-1.04) mg/dL Estimated GFR (>60) mL/min BUN/Creatinine Ratio (6-22) Glucose (70-99) mg/dL Calcium (8.4-10.2) mg/dL Magnesium (1.6-2.3) mg/dL Total Bilirubin (0.2-1.3) mg/dL AST (14-36) IU/L ALT (<35) IU/L Alkaline Phosphatase (38-126) U/L Total Creatine Kinase (30-135) U/L Troponin I 0.183 H* (0.01-0.034) ng/mL NT-Pro-B Natriuret Pep (<125) pg/mL Total Protein (6.3-8.2) g/dL Albumin (3.5-5.0) g/dL Globulin (1.7-4.1) g/dL Albumin/Globulin Ratio (1.0-2.8) Lipase (23-300) U/L Blood Type Antibody Screen Crossmatch MDM Narrative Medical decision making narrative: 54-year-old female who comes in tachycardic, hypertensive, afebrile O2 sat 100% with report of shortness of breath chest discomfort patient is found to have a hemoglobin of 4, she does have a positive troponin but suspect this maybe demand ischemia. Based on the level of her hemoglobin and recent rectal bleeding I would not start anticoagulation at this time. Patient was transfused 2 units. Patient had received aspirin for chest pain but that has prior to her labs resulting with a hemoglobin of 4 no other anticoagulants at this time. Labs show white count of 10 hemoglobin is 4.8 in 2020 she was 11.6, she is microcytic today with platelets of 349. INR is normal PTT is 21 D-dimer is 255. Chest x-ray shows no acute change EKG shows sinus tachycardia with short GA, rate of 128 GA 180 QRS is 74 QTC of 470, no acute ST-elevation or depression. Transfusing 2 units. Patient received aspirin based on NIO for chest pain in setting of hypertension and tachycardia prior to lab resuls, fluids and Protonix. Because of the patient's rectal bleeding history of gastric bypass along with a positive troponin which is suspected to be demand ischemia but patient does have a history of myocardial infarction although no current cardiac stents felt patient required transfer to have access to GI and Cardiology. Spoke with Ana Maria quinonez coordinator at 11:55 p.m. Spoke with cardiology, formerly [facility] for scope. Okay to hold of anticoagulation. tele. Spoke with Dr. Lew, hospitalist accepts at [facility] no bed assignment but we will call back. Agrees with the current plan. Plan for repeat h/h after PRBCs transfused. Improved to 6.6 for hemoglobin/20.7 hematocrit. Patient signed out to Dr. Floyd while awaiting bed assignment. Patient was signed out to me by Dr. Floyd, I reviewed the patient's lab work, she is down trending troponins, she has stable hemoglobin, symptoms more likely secondary to demand ischemia, we did call to surrounding hospitals as well as [facility] they state that there is nobody else who will take her, they state that there is possible bed availability tomorrow afternoon. The patient and at bedside state that given the fact that we are ?not doing anything and that her lab work is better they state that they do not feel that they need to wait here for ?as long as they have been. I informed them that this is to ensure her their safety and that it would be recommended that they wait to be transferred to higher level of care given the fact that there is no known cause for her anemia. However after lengthy conversation patient states that they do not want to wait they state that they would rather go to the emergency department over at the accepting facility to see if they can just get it admitted straight there, I told him that this is not how it works however if they do feel the need to want to do this they would be leaving against medical advice. They understand and will be leaving against medical advice Critical Care Time <Talya Rodríguez, DO - Last Filed: 03/09/25 18:58> Critical Care Time Critical Care Time: Yes Total Critical Care Time: 55 Attestation: The high probability of a clinically significant, sudden or life threatening deterioration of the [systems] system(s) required my full and direct attention, intervention and personal management. The aggregate critical care time was [--] minutes. This time is in addition to time spent performing reported procedures but includes the following: [x] Data Review and interpretation [x] Patient assessment and monitoring of vital signs [x] Documentation [x] Medication orders and management Discharge Plan Departure Patient Disposition: Left Against Medical Advice Clinical Impression: Left against medical advice, Symptomatic anemia, Rectal bleeding, Elevated troponin Activity Restrictions/Additional Instructions: We have discussed and explained the clinical examination, laboratory results, and imaging studies so far with the patient, both with full medical disclosure and layman's terms. The patient is an adult and is of sound mind. The patient appears to have intact insight, judgement and reason. Is alert and oriented x4. The patient is clinically sober and appears free from any distracting injury. The patient verbalized understanding. Despite incomplete workup the patient expresses a wish to leave. We have explained to the patient that leaving now would be leaving against medical advice. We have explained that leaving against medical advice without a complete workup and/or identification of pathology may lead to worsening of symptoms and even the possibility of disability or . The patient understands that the only way to safely avoid this is to complete the workup as leaving the grounds of the hospital would be leaving the care of trained medical biller/coder, specialists, and resources that were available to the patient. We have expressed the need for the patient to stay in the hospital, considering the constellation of symptoms of breath the patient here. Despite this lengthy conversation the patient still expresses desire to leave against medical advice and demonstrates a full capacity to make their own medical decisions. We have informed the patient to call 911 or to seek immediate medical attention at their nearest emergency department if there are symptoms were to worsen/or change their mind. Prescriptions: No Action diazepam 2 mg tablet See Rx Instructions PO .COMPLEX PRN (Reason: muscle spasm) Qty: 4 0RF Dose Instruction: TAKE 1-2 TABLETS AT BEDTIME NEEDED FOR MUSCLE RELAXATION PO HSP PRN; Rx Instructions: TAKE 1-2 TABLETS PRIOR to procedure; bupropion HCl 75 mg tablet See Rx Instructions .ROUTE .COMPLEX Qty: 120 2RF Dose Instruction: Take 2 tablets by mouth twice daily Rx Instructions: Take 2 tablets by mouth twice daily amlodipine 5 mg tablet See Rx Instructions .ROUTE .COMPLEX Qty: 90 0RF Dose Instruction: Take 1 tablet by mouth once daily Rx Instructions: Take 1 tablet by mouth once daily lisinopril-hydrochlorothiazide 20-25 mg tablet See Rx Instructions .ROUTE .COMPLEX Qty: 90 0RF Dose Instruction: Take 1 tablet by mouth once daily Rx Instructions: Take 1 tablet by mouth once daily omeprazole 20 mg capsule,delayed release(DR/EC) 20 mg PO DAILY Qty: 90 1RF ondansetron HCl 4 mg tablet 4 mg PO Q8H PRN (Reason: nausea and vomiting) naltrexone 50 mg tablet 25 mg PO DAILY Bariatric Multivitamins 45 mg iron- 800 mcg-120 mcg Capsule 1 cap PO DAILY docusate sodium 100 mg capsule 100 mg PO BID Qty: 60 0RF Stand Alone Forms: Patient Portal/API, Against Med. Advice (Amharic)
[2025-03-04 23:26] LABS: Anisocytosis 2+; Hypochromasia 2+; Microcytosis 2+
[2025-03-04 23:30] VITALS: BP 161/70; PULSE 93; RESP 15; O2SAT 99
[2025-03-04] MEDS: PANTOPRAZOLE 40 MG VIAL 80 MG IV (23:38)
[2025-03-05] VITALS (70 sets, daily range): BP systolic 143–248; BP diastolic 66–112; PULSE 67–117; RESP 14–58; TEMP 36.5–36.9; O2SAT 96–100
--- NOTE | 2025-03-05 01:12 | TAR.TRANSNT ---
1st unit initiation delayed due to staff availability in emergency department.
[2025-03-05 01:47] LABS: Troponin I 0.194 ng/mL (0.01-0.034)
[2025-03-05 05:57] LABS: Hematocrit 20.7 % (36-46); Hemoglobin 6.6 g/dL (12.0-16.0)
--- NOTE | 2025-03-05 07:48 | PC.NURSE ---
Assumed care of pt at 0700. Denies pain. Denies sob, cp and dizziness while up to commode. States that she feels better than when she came in. A&Ox4.
--- NOTE | 2025-03-05 10:27 | PC.NURSE ---
Pt able to walk to BR and return to room without feeling dizzy or lightheaded.
--- NOTE | 2025-03-05 10:38 | PC.NURSE ---
Discussed plan of care with Dr Floyd. wants to repeat H/H at 12 pm and reassess need for additional PRBC.
[2025-03-05 12:03] LABS: Hematocrit 21.8 % (36-46); Hemoglobin 7.0 g/dL (12.0-16.0)
[2025-03-05 16:22] LABS: Hematocrit 23.4 % (36-46); Hemoglobin 7.6 g/dL (12.0-16.0)
[2025-03-05 16:43] LABS: Troponin I 0.183 ng/mL (0.01-0.034)
--- NOTE | 2025-03-05 19:31 | PC.NURSE ---
Pt wanting something to eat. Dr Floyd consulted. ok for pt to have PO intake.
== END 2025-03-05 22:19 | disposition left against medical advice (07) ==
PROVIDERS: Emergency Medicine; Family Medicine; Emergency Provider Student in an Organized Health Care Education/Training Program; Family Provider Family Medicine
DX: D64.9 Anemia, unspecified (principal); K62.5 Hemorrhage of anus and rectum; R79.89 Other specified abnormal findings of blood chemistry; R06.02 Shortness of breath; Z98.84 Bariatric surgery status; R00.0 Tachycardia, unspecified; I10 Essential (primary) hypertension
CPT/HCPCS: 36415; 36430; 71045; 80053; 82550; 83690; 83735; 83880; 84484; 85014; 85018; 85025; 85379; 85610; 85730; 86850; 86900; 86901; 93005; 96374; 99285; 99291; P9016; J2470